=== PATIENT | male | born 1945 | race Caucasian/White ===

== ENCOUNTER → 2018-09-07 | Day surgery (SDC) | payer MEDICARE ==
[2018-09-04 12:38] LABS: BASOPHILS % 0.4 % (0.0-1.0); EOSINOPHILS # (AUTO) 0.1 (0.0-0.4); EOSINOPHILS % 1.7 % (0.0-6.0); HEMATOCRIT 39.1 % (38.2-49.6); HEMOGLOBIN 13.3 g/dL (14.0-18.0); LYMPHOCYTES # (AUTO) 2.8 (1.0-3.2); LYMPHOCYTES % 38.7 % (18.0-39.1); MEAN CORPUSCULAR HEMOGLOBIN 30.4 pg (28-32); MEAN CORPUSCULAR VOLUME 89.3 fL (81-99); MONOCYTES # (AUTO) 0.6 (0.2-0.8); MONOCYTES % 7.9 % (4.4-11.3); NEUTROPHILS # (AUTO) 3.6 (2.1-6.9); NEUTROPHILS % 51.2 % (38.7-80.0); PLATELET COUNT 297 x10e3/uL (140-360); RED BLOOD COUNT 4.38 x10e6/uL (4.3-5.7); RED CELL DISTRIBUTION WIDTH 13.9 % (11.7-14.4)
[2018-09-04 12:49] LABS: INR 0.8; PROTHROMBIN TIME 11.9 seconds (11.9-14.5)
[2018-09-04 12:56] LABS: ALBUMIN 3.5 g/dL (3.5-5.0); ALBUMIN/GLOBULIN RATIO 1.1 (0.8-2.0); ANION GAP 14.2 mmol/L (8-16); CHOL/HDL RATIO 5.1 (3.9-4.7); CREATININE, SERUM 1.42 mg/dL (0.72-1.25); POTASSIUM 3.2 mmol/L (3.5-5.1)
[2018-09-07] VITALS (8 sets, daily range): BP systolic 151–179; BP diastolic 67–88
[~2018-09-07] VITALS: Ht 177.8 cm; Wt 134.3 kg
[~2018-09-07] MED LIST: ALEVE220 MG PO; ALPRAZOLAM 0.5 MG TAB ONE; AMLODIPINE BESYL5 MG PO; ASPIR 8181 MG PO; ATORVASTATIN CA20 MG PO; CHLORTHALIDONE50 MG PO; CLOPIDOGREL75 MG PO; DESONIDE59 ML TOP; DIPHENHYDRAMINE HCL 25 MG CAP ONE; DYMISTA NASAL S23 GM; ELOCON15 GM TD; FENTANYL CITRATE/PF 100MCG/2 ML INJ ONE; FISH OIL 1,2001 EACH PO; FLUOROURACIL 5% TP; HEPARIN SOD/SOD CHLORIDE 2,000 ML ONE; HYDRALAZINE HCL 20 MG/ML VIAL ONE; IBUPROFEN200 MG PO; IOPAMIDOL 370 MG/ML 200 ML INFUS..BTL INJ ONE; ISOSORBIDE MONO30 MG PO; LEVEMIR100 UNIT/1 SC; LIDOCAINE HCL 2% LOCAL 20 ML VIAL ONE; LISINOPRIL10 MG PO; MIDAZOLAM HCL 2 MG/2 ML VIAL ONE; MUPIROCIN22 GM TOP; NOVOLOG100 UNIT/1 SC; PENTOXIFYLLINE400 MG PO; POTASSIUM CHLO10 ME1 PO; REFRESH CLASSI1 EACH OP; SODIUM CHLORIDE 0.9% 1000ML 1,000 ML ONE; SULFACETAMIDE3.5 GM TP; TERBINAFINE HC250 MG PO; [UNRECOGNIZED DRUG - OTHER]; [UNRECOGNIZED DRUG - OTHER] PO
--- NOTE | 2018-09-07 17:18 | Operative Report ---
DATE OF PROCEDURE: September 07, 2018 PROCEDURES PERFORMED 1. Conscious sedation 40 minutes. 2. Selective coronary angiography x2. 3. Selective venous graft angiography x1. 4. Selective arterial graft x1. 5. Insertion of an implantable loop recorder. PREPROCEDURE DIAGNOSIS: Abnormal stress test. POSTPROCEDURE DIAGNOSIS: Severe hopi coronary artery disease with patent bypass x2. ESTIMATED BLOOD LOSS: Less than 20 mL. SPECIMENS REMOVED: None. PROCEDURE DETAILS: After informed consent was obtained, the patient was brought to the cardiac catheterization laboratory in a fasting and nonsedated state. Bilateral groins were prepped and draped in the usual sterile fashion. His anterior chest wall was prepped and draped in the usual sterile fashion as well. The patient received conscious sedation with fentanyl and midazolam. The anterior chest wall was infiltrated with 2% lidocaine for local anesthesia. Using proper technique, an implantable loop recorder was inserted under the usual protocol. The tract was sealed with Dermabond. Next, 2% lidocaine was infiltrated over the right anterior groin for local anesthesia. Using a micropuncture needle, the right common femoral artery was accessed using modified Seldinger technique, and a 5-Bhutanese sheath was placed. Next, diagnostic coronary angiography was performed using a JL-4 and 3DRC catheters. Eventually an AL-1 catheter was used to selectively engage the right coronary artery. Selective graft angiography x2 was performed using a 3DRC catheter and a JR-4 catheter. The arteriotomy site was closed with a Mynx device with excellent hemostasis. The patient tolerated the procedure well with no immediate complications and was transported back to his room in stable condition. PROCEDURAL FINDINGS 1. Left main coronary artery has an ostial 20% stenosis. 2. The left anterior descending coronary artery has a 40% to 50% proximal stenosis and is 100% occluded in its midportion after the takeoff of the 1st diagonal branch. The distal vessel fills via a patent left internal mammary graft. The apical portion of the LAD is very small in caliber and diffusely diseased. 3. Left circumflex coronary artery provides 1 small obtuse marginal vessel right before it is 100% occluded. The distal OM is filled via a patent saphenous vein graft. 4. The right coronary artery is a dominant vessel and provides the posterior descending coronary artery. There is a mid 30% RCA stenosis. 5. The saphenous vein graft anastomosed to the 2nd obtuse marginal vessel has a 40% to 50% mid stenosis. 6. The left internal mammary artery graft is patent. IMPRESSION AND RECOMMENDATIONS: This is a 73-year-old man with severe hopi coronary artery disease, who is found to have patent grafts. Medical management is recommended, and home monitoring for his implantable loop recorder to assess for any arrhythmias will be performed. Job#: [id number] EV
== END | disposition home or self-care (01) ==
LOC: CATH LAB 10:32
PROVIDERS: ATTEND Internal Medicine Interventional Cardiology
DX: I25.810 Atherosclerosis of coronary artery bypass graft(s) without angina pectoris (principal); I48.91 Unspecified atrial fibrillation; R94.39 Abnormal result of other cardiovascular function study; I25.2 Old myocardial infarction; R03.0 Elevated blood-pressure reading, without diagnosis of hypertension; Z95.1 Presence of aortocoronary bypass graft; G47.30 Sleep apnea, unspecified; E78.00 Pure hypercholesterolemia, unspecified; E11.9 Type 2 diabetes mellitus without complications; Z01.812 Encounter for preprocedural laboratory examination; Z79.82 Long term (current) use of aspirin; Z79.02 Long term (current) use of antithrombotics/antiplatelets; Z79.4 Long term (current) use of insulin; Z68.41 Body mass index [BMI] 40.0-44.9, adult; Z86.73 Personal history of transient ischemic attack (TIA), and cerebral infarction without residual deficits
CPT/HCPCS: 33282; 36415; 80053; 80061; 85025; 85610; 93455; C1764; C1769; J0360; J2001; J2250; J7030; Q9967

== ENCOUNTER 2020-07-11 06:37 | Observation (INO) | payer MEDICARE, OTHER ==
[2020-07-06 12:35] LABS: BASOPHILS % 0.3 % (0.0-1.0); EOSINOPHILS # (AUTO) 0.1 (0.0-0.4); EOSINOPHILS % 1.9 % (0.0-6.0); HEMATOCRIT 39.6 % (38.2-49.6); HEMOGLOBIN 13.2 g/dL (14.0-18.0); LYMPHOCYTES # (AUTO) 2.2 (1.0-3.2); LYMPHOCYTES % 35.2 % (18.0-39.1); MEAN CORPUSCULAR HEMOGLOBIN 30.4 pg (28-32); MEAN CORPUSCULAR HGB CONC 33.3 g/dL (31-35); MEAN CORPUSCULAR VOLUME 91.2 fL (81-99); MONOCYTES # (AUTO) 0.5 (0.2-0.8); MONOCYTES % 7.1 % (4.4-11.3); NEUTROPHILS # (AUTO) 3.5 (2.1-6.9); NEUTROPHILS % 55.2 % (38.7-80.0); PLATELET COUNT 282 x10e3/uL (140-360); RED BLOOD COUNT 4.34 x10e6/uL (4.3-5.7); RED CELL DISTRIBUTION WIDTH 13.7 % (11.7-14.4)
[2020-07-06 12:58] LABS: ALBUMIN/GLOBULIN RATIO 1.4 (0.8-2.0); ANION GAP 16.2 mmol/L (8-16); CALCIUM 8.7 mg/dL (8.4-10.2); CREATININE, SERUM 1.3 mg/dL (0.72-1.25); POTASSIUM 3.2 mmol/L (3.5-5.1)
[2020-07-11] VITALS (21 sets, daily range): BP systolic 119–205; BP diastolic 60–101
[~2020-07-11] VITALS: Ht 182.9 cm; Wt 140.6 kg
[~2020-07-11 06:37] MED LIST changes: +ACETAMINOPHEN650 M1 PO; -ALPRAZOLAM 0.5 MG TAB ONE; +AZELASTINE205.5 MCG/ TOP; -DIPHENHYDRAMINE HCL 25 MG CAP ONE; -ELOCON15 GM TD; +ELOCON15 GM TOP; -FENTANYL CITRATE/PF 100MCG/2 ML INJ ONE; +FOLIC; +FOLIC ACID PO; -HEPARIN SOD/SOD CHLORIDE 2,000 ML ONE; -HYDRALAZINE HCL 20 MG/ML VIAL ONE; -IOPAMIDOL 370 MG/ML 200 ML INFUS..BTL INJ ONE; -LIDOCAINE HCL 2% LOCAL 20 ML VIAL ONE; -MIDAZOLAM HCL 2 MG/2 ML VIAL ONE; +PRESERVISION T1 EACH PO; -SODIUM CHLORIDE 0.9% 1000ML 1,000 ML ONE; +TYLENOL ARTHRITIS PO; +VALACYCLOVIR500 MG PO; +[UNRECOGNIZED DRUG - OTHER] OP
[2020-07-11] MEDS ORDERED: DIPHENHYDRAMINE HCL 25 MG CAP ONE (07:29)
[2020-07-11] MEDS ORDERED: ALPRAZOLAM 0.5 MG TAB ONE (07:29)
[2020-07-11] MEDS ORDERED: LIDOCAINE HCL 2% LOCAL 20 ML VIAL ONE (07:51)
[2020-07-11] MEDS ORDERED: MIDAZOLAM HCL 2 MG/2 ML VIAL ONE ×2 (07:51→08:29)
[2020-07-11] MEDS ORDERED: FENTANYL CITRATE/PF 100MCG/2 ML INJ ONE (07:51)
[2020-07-11] MEDS ORDERED: IOPAMIDOL 370 MG/ML 200 ML INFUS..BTL INJ ONE (07:52)
[2020-07-11] MEDS ORDERED: HEPARIN SOD/SOD CHLORIDE 2,000 ML ONE (07:52)
[2020-07-11] MEDS ORDERED: SODIUM CHLORIDE 0.9% 1000ML 1,000 ML ONE (07:52)
[2020-07-11] MEDS ORDERED: SODIUM CHLORIDE 0.9% 50ML 50 ML ONE ×2 (08:36→08:41)
[2020-07-11] MEDS ORDERED: BIVALRIUDIN 250 MG/VIAL VIAL IV ONE (08:36)
[2020-07-11] MEDS ORDERED: ADENOSINE 6MG/2ML 1 ML ONE (08:41)
[2020-07-11] MEDS ORDERED: EPTIFIBATIDE 20 ML ONE (08:46)
[2020-07-11] MEDS ORDERED: ACETAMINOPHEN 325 MG TAB PO PRN (09:30)
[2020-07-11] MEDS ORDERED: MORPHINE SULFATE INJ 4 MG/ML INJ 1ML IV PRN (09:30)
[2020-07-11] MEDS ORDERED: HYDRALAZINE HCL 20 MG/ML VIAL IV PRN (09:30)
[2020-07-11] MEDS ORDERED: ONDANSETRON HCL INJ 2MG/ML 2ML 2 MG/ML VIAL IV PRN (09:30)
[2020-07-11] MEDS ORDERED: ZOLPIDEM TARTRATE 5 MG TAB PO PRN (09:30)
[2020-07-11] MEDS ORDERED: DEXTROSE 50% SYRINGE 50 ML IV PRN (09:30)
[2020-07-11] MEDS ORDERED: HYDROCODONE/APAP 5MG-325MG TAB PO PRN (09:30)
[2020-07-11] MEDS ORDERED: PRASUGREL 10 MG TAB ONE (09:36)
[2020-07-11] MEDS ORDERED: ASPIRIN 325 MG TAB ONE (09:37)
--- NOTE | 2020-07-11 10:49 | Operative Report ---
DATE OF PROCEDURE: 07/11/2020 SURGEON: Ramsey Ferrer MD INDICATIONS: Coronary artery disease, abnormal stress test with angina. PROCEDURES PERFORMED: 1. Left heart catheterization, selective coronary angiography. 2. Selective cannulation of one arterial and one venous bypass conduit. 3. Placement of temporary transvenous pacemaker. 4. Percutaneous coronary intervention to the saphenous vein bypass graft of the circumflex artery. 5. Conscious sedation, 65 minutes. COMPLICATIONS: None. BLOOD LOSS: Minimal. RECOMMENDATIONS: Dual antiplatelet therapy for life. Aggressive medical therapy. DESCRIPTION OF PROCEDURE: Access obtained in the right femoral artery. A 6-Russian sheath was placed, access obtained in the right femoral vein. A 7-Russian sheath was placed, transvenous pacemaker was advanced to the right ventricular apex and pacing initiated with excellent capture and threshold. Coronary angiography demonstrated 50% distal left main stenosis, mid left anterior descending artery 90% stenosis, distal circumflex 90% stenosis, 2 mm vessel, obtuse marginal branch was occluded. Right coronary artery was dominant vessel, 50% mid calcification and stenosis. Left internal mammary artery bypass to left anterior descending artery was widely patent, bad [place]. Apical left anterior descending artery was subtotally occluded 1.5 mm vessel. Saphenous vein bypass graft to obtuse marginal branch had a distal anastomotic stent, which had 50% in-stent restenosis. Proximal bypass graft 80%, mid bypass graft 50%, and distal to this 90% stenosis. LV end-diastolic pressure was normal. The decision was made to intervene on the saphenous vein bypass graft, this was cannulated using a JR4 6-Russian guiding catheter. The patient received intravenous Angiomax, oral prasugrel, and aspirin for anticoagulation. A short Runthrough wire was advanced for support. Integrilin bolus along with a total of 1.5 mg of adenosine as well as 600 mcg of nitroglycerin administered intracoronary. Predilatation, a 2.5 mm balloon following which a single 3.5 x 16 mm Synergy stent deployed distally in the vein graft, 2.5 x 16 mm Synergy stent deployed proximally at 14 and 18 atmospheres respectively, less than 10% residual stenosis, MALORIE-3 flow. No complications. Wire and guide sheath removed. Sheath secured in place for removal under manual pressure. The patient observed overnight in the hospital. MD JOSEPH Silver/SHERMAN /[id number]
--- OUTSIDE RECORDS SUMMARY | 2020-07-11 11:02 | XMS REPORT | Continuity of Care Document ---
Author Author [facility] Organization [facility] Address [address] [place] [address] Phone Unavailable Care Team Providers Care Agricultural Specialist Name Role Phone Pcp, No PCP Unavailable TR[place]ON AMANDA Attphys Unavailable Payers Payer Name Policy Type Policy Number Effective Date Expiration Date S ource Problems Condition Name Condition Details Condition Category Status Onset Date Resolution Date Last Treatment Date Treating Clinician Comments Source Hyperglycemia due to type 2 diabetes mellitus Hypergly cemia Due to Type 2 Diabetes Mellitus Problem Active 2019-12-21 00:00:[address] [facility] Syncope Syncope Disease Active 2018-09-27 00:00:00 Dillan Winters Body mass index 40+ - severely obese Body Mass Index 40+ - S everely Obese Problem Active 2017-05-23 00:00:[address] [facility] Diabetes type 2, uncontrolled Diabetes type 2, uncontrolled Disease Active 2017-05-23 00:00:00 Dillan Winters Benign essential hypertension Benign essential hypertension Disease Active 2017-05-23 00:00:00 Dillan Winters Coronary arteriosclerosis in [place] artery Coronary ar teriosclerosis in [place] artery Disease Active 2017-05-23 00:00:00 Alejo Winters Gastroesophageal reflux disease without esophagitis [place] stroesophageal reflux disease without esophagitis Disease Active 2017-05-23 00:00:00 Dillan Winters Hypercholesterolemia Hypercholesterolemia Disease Active 00:00:00 Dillan Winters Allergies, Adverse Reactions, Alerts Allergy Name Allergy Type Status Severity Reaction(s) Onset Date Inacti ve Date Treating Clinician Comments Source Furosemide Propensity to adverse reactions Active 1 00:00:00 [facility] furosemide DA Active SV 2019-03-06 00:00:00 [facility] Furosemide Propensity to adverse reactions to drug Active 2018-09-27 00:00:00 Blisters Dillan pelayo No Known Allergies DA Active U 2014-03-08 00:00:00 [facility] Lasix Allergy to substance Active [facility] Social History Social Habit Start Date Stop Date Quantity Comments Source History SDOH Alcohol Std Drinks Grimaldo Uatsdin History SDOH Alcohol Binge Grimaldo Uatsdin Sex Assigned At Kylie stevenson Uatsdin Alcohol intake 2018-09-27 00:00:00 2018-09-27 00:00:00 Current drinker of alcohol (finding) Grimaldo Uatsdin History SDOH Alcohol Frequency 2018-09-27 00:00:00 2018-09-27 00:00:0 0 1 Grimaldo Uatsdin Alcohol Comment 2018-09-27 00:00:00 2018-09-27 00:00:00 occassional Dillan Winters Smoking Status Start Date Stop Date Source Never smoker Dillan pelayo Medications Ordered Medication Name Filled Medication Name Start Date Stop Da te Current Medication? Ordering Clinician Indication Dosage Frequency Signature (SIG) Comments Components Source azelastine-fluticasone (DYMISTA) 137-50 mcg/spray spray,non- aerosol 2018-09-29 16:26:25 Yes 1{spray} Q.5D 1 spray by Each Nare route 2 (two) times a day as needed. [place] Uatsdin amLODIPine (NORVASC) 5 mg tablet 2018-09-29 16:26:25 Yes 5mg Q.5D Take 5 mg by mouth 2 (two) times a day. [facility] atorvastatin (LIPITOR) 40 MG tablet 2018-09-29 16:26:25 Yes 40mg QD Take 40 mg by mouth every morning. [facility] chlorthalidone (HYGROTEN) 50 MG tablet 2018-09-29 16:26:25 Yes 50mg QD Take 50 mg by mouth every [facility] clopidogrel (PLAVIX) 75 mg tablet 2018-09-29 16:26:25 Yes 75mg QD Take 75 mg by mouth every morning. [facility]ist isosorbide mononitrate (IMDUR) 30 MG 24 hr tablet 2018-09-29 16:26:25 Yes 30mg QD Take 30 mg by mouth every morning. Dillan Winters lisinopril (PRINIVIL,ZESTRIL) 40 mg tablet 2018-09-29 16:26:25 Yes 40mg QD Take 40 mg by mouth every morning. Dillan Winters potassium chloride (K-DUR,KLOR-CON) 10 MEQ CR tablet 2 16:26:25 Yes 10meq Q.5D Take 10 mEq by mouth 2 (two) times a day . Dillan Winters insulin detemir U-100 (LEVEMIR) 100 unit/mL injection 2018-09-29 16:26:25 Yes 38U QD Inject 38 Units under the skin every mor james. Dillan Winters insulin detemir U-100 (LEVEMIR) 100 unit/mL injection 2018-09-29 16:26:25 Yes 44U QD Inject 44 Units under the skin nightly. Dillan Winters insulin ASPART (NovoLOG) 100 unit/mL injection 2018-09-29 16:26: 25 Yes 26U Q.[id number] Inject 26 Units under the sk in 3 (three) times a day before meals. Dillan Winters aspirin (ECOTRIN) 81 MG enteric coated tablet 2018-09-29 16:26:2 5 Yes 81mg QD Take 81 mg by mouth every morning. Dillan Winters omega-3 fatty acids-fish oil (FISH OIL) 360-1,200 mg capsule 2018-09-29 16:26:25 Yes 1200mg Q.5D Take 1,200 mg by mouth 2 (two ) times a day. Dillan Winters folic acid 0.8 mg capsule 2018-09-29 16:26:25 Yes 1600mg QD Take 1,600 mg by mouth every morning. Dillan stevens vit C/E/Zn/coppr/lutein/zeaxan (PRESERVISION AREDS-2 ORAL) 2018-09-29 16:26:25 Yes 1{tbl} Q.5D Take 1 tablet by mouth 2 (two) times a day. Dillan Winters carboxymethylcellulose 1 % ophthalmic solution 2018-09-29 16:26: 25 Yes 2[drp] Q.[id number] Administer 2 drops to both e yes 3 (three) times a day. Dillan Winters pentoxifylline (TRENTal) 400 mg CR tablet 2018-09-29 16:26:25 Yes 400mg Q.[id number] Take 400 mg by mouth 3 (three) times a day with meals. Dillan Winters terbinafine HCl (LamiSIL) 250 mg tablet 2018-09-29 16:26:25 Yes 250mg QD Take 250 mg by mouth every morning. Dillan Winters mometasone (ELOCON) 0.1 % cream 2018-09-29 16:26:25 Yes 1{application} QD Apply 1 application topically daily. Dillan Winters mupirocin (BACTROBAN) 2 % ointment 2018-09-29 16:26:25 Y es 1{application} Q.[id number] Apply 1 application topicall y 3 (three) times a day. Dillan Winters naproxen sodium (ALEVE) 220 MG tablet 2018-09-29 16:26:25 Yes 220mg Q.5D Take 220 mg by mouth 2 (two) times a day as needed for mild pain . Dillan Winters sulfacetamide sodium 10 % cream 2018-09-29 16:26:25 Yes 1{application} Q.5D Apply 1 application topically 2 (two) times a day. Dillan Winters acetaminophen 650 mg 2 every 8 hours as needed acetami nophen 650 mg 2 every 8 hours as needed No acetaminophen 6 50 mg 2 every 8 hours as needed [facility] amlodipine 5 mg tablet Take 1 tablet twice a day by or al route. amlodipine 5 mg tablet Take 1 tablet twice a day by oral route. No amlodipine 5 mg tablet Take 1 tablet twice a day by oral route. [facility] atorvastatin 40 mg tablet TAKE ONE TABLET BY MOUTH MISAEL LY atorvastatin 40 mg tablet TAKE ONE TABLET BY MOUTH DAILY No atorvastatin 40 mg tablet TAKE ONE TABLET BY MOUTH DAILY [facility] BD Ultra-Fine Mini Pen Needle 31 gauge x 3/16" TEST BL OOD SUGAR DAILY BD Ultra- Fine Mini Pen Needle 31 gauge x 3/16" TEST BLOOD SUGAR DAILY No BD Ultra-Fine Mini Pen Needle 31 gauge x 3/16" TEST BLOOD SUGAR DAILY [facility] chlorthalidone 50 mg tablet TAKE ONE TABLET BY MOUTH D AILY chlorthalidone 50 mg tablet TAKE ONE TABLET BY MOUTH DAILY No chlorthalidone 50 mg tablet TAKE ONE TABLET BY MOUTH DAILY [facility] clopidogrel 75 mg tablet TAKE ONE TABLET BY MOUTH GLENDY Y clopidogrel 75 mg tablet TAKE ONE TABLET BY MOUTH DAILY No clopidogrel 75 mg tablet TAKE ONE TABLET BY MOUTH DAILY [facility] desonide 0.05 % topical cream APPLY SPAR INGLY AND RUB GENTLY INTO THE AFFECTED AREA(S) BY TOPICAL ROUTE 2 TIMES PER DAY desonide 0.05 % topical cream APPLY SPARINGLY AND RUB GENTLY INTO THE AFFECTED AREA(S) BY TOPICAL ROUTE 2 TIMES PER DAY No desonide 0.05 % topical cream APPLY SPARINGLY AND RUB GENTLY INTO THE AFFECTED AREA(S) BY TOPICAL ROUTE 2 TIMES PER DAY [facility] Fish Oil 1200 mg twice a day Fish Oil 1200 mg twice a day N o Fish Oil 1200 mg twice a day [facility] folic acid 1600 mg TAKE ONE TABLET BY MOUTH DAILY foli c acid 1600 mg TAKE ONE TABLET BY MOUTH DAILY No fo lic acid 1600 mg TAKE ONE TABLET BY MOUTH DAILY [facility] isosorbide mononitrate ER 30 mg tablet,extended releas e 24 hr 1 daily isosorbide mononitrate ER 30 mg tablet,extended release 24 hr 1 daily No isosorbide mononitrate ER 30 mg tablet,extended release 24 hr [address] [facility] Levemir FlexTouch U-100 Insulin 100 unit/mL (3 mL) sub cutaneous pen Levemir FlexTouch U-100 Insulin 100 unit/mL (3 mL) subcutaneous pen No Levemir FlexTouch U-100 Insulin 100 unit/mL (3 mL) subcutaneous pen [facility] lisinopril 40 mg tablet TAKE ONE TABLET BY MOUTH DAILY lisinopril 40 mg tablet TAKE ONE TABLET BY MOUTH DAILY No lisinopril 40 mg tablet TAKE ONE TABLET BY MOUTH DAILY [facility] Longs Adult Low Strength ASA 81 mg table t,delayed release Take 1 tablet every day by oral route. Longs Adult Low Strength ASA 81 mg table t,delayed release Take 1 tablet every day by oral route. No 1 Q1D Longs Adult Low Strength ASA 81 mg tablet,delayed release Take 1 tablet every day by oral route. [facility] metoprolol tartrate 25 mg tablet 0.5 tablet twice a da y metoprolol tartrate 25 mg tablet 0.5 tablet twice a day No metoprolol tartrate 25 mg tablet 0.5 tablet twice a day [facility] Microlet Lancet 3 TIMES A DAY Microlet Lancet 3 TIMES A DAY No Microlet Lancet 3 TIMES A DAY [facility] mometasone furoate (bulk) 0.10 % apply thin layer mome tasone furoate (bulk) 0.10 % apply thin layer No mome tasone furoate (bulk) 0.10 % apply thin layer [facility] ice mupirocin 2 % topical ointment APPLY A S MALL AMOUNT TO THE AFFECTED AREA BY TOPICAL ROUTE 3 TIMES PER DAY mupirocin 2 % topical ointment APPLY A S MALL AMOUNT TO THE AFFECTED AREA BY TOPICAL ROUTE 3 TIMES PER DAY No mupirocin 2 % topical ointment APPLY A SMALL AMOUNT TO THE AFFECTED AREA BY TOPICAL ROUTE 3 TIMES PER DAY [facility] Novolog Flexpen U-100 Insulin aspart 100 unit/mL (3 mL) subcutaneous 26 units per meal size Novolog Flexpen U-100 Insulin aspart 100 unit/mL (3 mL) subcutaneous 26 units per meal size No Novolog Flexpen U-100 Insulin aspart 100 unit/mL (3 mL) subcutaneous 26 units per meal size [facility] OneTouch Verio test strips TEST BLOOD SUGAR DAILY OneT ouch Verio test strips TEST BLOOD SUGAR DAILY No O neTouch Verio test strips TEST BLOOD SUGAR DAILY [facility] ice pen needle, diabetic 31 gauge x 1/4" pen needle, diabetic 31 gauge x 1/4" No pen needle, diabetic 31 gauge x 1/4" [facility] pentoxifylline ER 400 mg tablet,extended release Take 1 tablet 3 times a day by oral route. pentoxifylline ER 400 mg tablet,extended release Take 1 tablet 3 times a day by oral route. No pentoxifylline ER 400 mg tablet,extended release Take 1 tablet 3 times a day by oral route. [facility] potassium chloride ER 10 mEq tablet,exte nded release TAKE ONE TABLET BY TWICE A DAY potassium chloride ER 10 mEq tablet,exte nded release TAKE ONE TABLET BY TWICE A DAY No potassium ch loride ER 10 mEq tablet,extended release TAKE ONE TABLET BY TWICE A DAY [facility] PreserVision AREDS 1 twice a day PreserVision AREDS 1 twice a day No PreserVision AREDS 1 twice a day [facility] sulfacetamide sodium (acne) 10 % lotion (suspension) t wice a day sulfacetamide sodium (acne) 10 % lotion (suspension) twice a day No sulfacetamide sodium (acne) 10 % lotion (suspension) twice a day [facility] Tears Refreshed eye drops 2 drops three times a day Te ars Refreshed eye drops 2 drops three times a day No Tears Refreshed eye drops 2 drops three times a day [facility] terbinafine HCl 250 mg tablet QD terbinafine HCl 250 mg tablet QD No terbinafine HCl 250 mg tablet QD [facility] Immunizations Ordered Immunization Name Filled Immunization Name Date Status Comments Source pneumococcal polysaccharide PPV23 pneumococcal polysaccharid e PPV23 2019-08-10 00:00:00 [facility]pleted [facility] influenza, injectable, quadrivalent influenza, injectable, q uadrivalent 2019-08-10 00:00:00 Completed [facility] influenza, high dose seasonal influenza, high dose seasonal 2017 11:36:[address] [facility] influenza, high dose seasonal influenza, high dose seasonal 2015 15:07:[address] [facility] pneumococcal, unspecified formulation pneumococcal, unspecif ied formulation 2015-11-03 00:00:00 [facility]pleted [facility] zoster live zoster live 2011-11-03 00:00:00 Completed [facility] Vital Signs Vital Name Observation Time Observation Value Comments Source Height 2020-06-02 00:00:00 67 [in_i] [facility] BP Diastolic 2019-11-22 00:00:00 79 mm[Hg] [facility] Height 2019-11-22 00:00:00 67 [in_i] [facility] BMI (Body Mass Index) 2019-11-22 00:00:00 48.4 kg/m2 [facility] BP Systolic 2019-11-22 00:00:00 171 mm[Hg] [facility] Body Weight 2019-11-22 00:00:00 308.8 [lb_av] [facility] BP Diastolic 2019-10-18 00:00:00 87 mm[Hg] [facility] Height 2019-10-18 00:00:00 67 [in_i] [facility] BMI (Body Mass Index) 2019-10-18 00:00:00 48.6 kg/m2 [facility] BP Systolic 2019-10-18 00:00:00 161 mm[Hg] [facility] Body Weight 2019-10-18 00:00:00 310 [lb_av] [facility] Procedures This patient has no known procedures. Plan of Care Planned Activity Planned Date Details Comments Source Future Scheduled Test 2020-08-03 00:00:00 INFLUENZA VACCINE [code = INFLUENZA VACCINE] [facility] Future Scheduled Test 2012-01-02 00:00:00 SHINGLES VACCINES (#2) [code = SHINGLES VACCINES (#2)] [facility] Future Scheduled Test 2010 00:00:00 65+ PNEUMOCOCCAL V ACCINE (2 of 2 - PPSV23) [code = 65+ PNEUMOCOCCAL VACCINE (2 of 2 - PPSV23)] [facility] Future Scheduled Test 1995 00:00:00 COLONOSCOPY SCREEN ING [code = COLONOSCOPY SCREENING] [facility] Scheduled Test 1955 00:00:00 DIABETIC FOOT EXAM [code = DIABETIC FOOT EXAM] [facility] Future Scheduled Test 1955 00:00:00 URINE MICROALBUMIN [code = URINE MICROALBUMIN] [facility] Future Scheduled Test 1945 00:00:00 DIABETIC RETINAL E YE EXAM [code = DIABETIC RETINAL EYE EXAM] [facility] Encounters Start Date/Time End Date/Time Encounter Type Admission Type Attendi [facility] Care Department Encounter ID Source 2020-06-02 00:00:00 2020-06-02 00:00:00 Luis M Nava MD: [address], [place] [address], Ph. V [facility] - VM_HOU_[facility] [place] [id number] [facility] 2020-04-26 00:00:00 2020-04-26 00:00:00 Dodie Ferro P: [id number], [address], [place] [address], Ph. VFP [facility] - _U_[facility] [id number] [facility] 2019-11-22 00:00:00 2019-11-22 00:00:00 Luis M Nava MD: [address], [place] [address], Ph. V [facility] - VM_HOU[facility] [place] [id number] [facility] 2019-10-18 00:00:00 2019-10-18 00:00:00 Luis M Nava MD: [address], [place] [address], Ph. V FP [place] - [facility] - _KYLIE_[place] [id number] [facility] Results Test Description Test Time Test Comments Results Result Comments Source TROPONIN I 2019-07-04 13:38:00 Test Item TROPONIN I (BEAKER) (test code = 397) 0.03 ng/mL 0.00-0.15 Troponin I (TnI) levels must be interpreted in the context of the presenting sym ptoms and the clinical findings. Elevated TnI levels indicate myocardial damage, but are not specific for ischemic heart disease. Elevated TnI levels are seen in patients with other cardiac conditions (including myocarditis and congestive h eart failure), and slight TnI elevations occur in patients with other conditions , including sepsis, renal failure, acidosis, acute neurological disease, and per sistent tachyarrhythmia.B-TYPE NATRIURETIC FACTOR (BNP)2019-07-04 13:38:00* Test Item Value Reference Range Interpretation Comments B-TYPE NATRIURETIC PEPTIDE (BEAKER) (test code = 700) 133 pg/mL 0-100 H BASIC METABOLIC [id number] 13:30:00* Test Item Value Reference Range Interpretation Comments SODIUM (BEAKER) (test code = 381) 140 meq/L 135-148 POTASSIUM (BEAKER) (test code = 379) 3.0 meq/L 3.6-5.5 L CHLORIDE (BEAKER) (test code = 382) 99 meq/L 98-106 CO2 (BEAKER) (test code = 355) 29 meq/L 20-29 BLOOD UREA NITROGEN (BEAKER) (test code = 354) 21 mg/dL 10-26 CREATININE (BEAKER) (test code = 358) 1.39 mg/dL 0.50-1.20 H GLUCOSE RANDOM (BEAKER) (test code = 652) 250 mg/dL 70-110 H CALCIUM (BEAKER) (test code = 697) 9.7 mg/dL 8.5-10.5 EGFR (BEAKER) (test code = 1092) 50 mL/min/1.73 sq m INSUFFICIENT CLINICAL DATA TO CALCULATE ESTIMATED GFR. [id number] 13:30:00* Test Item Value Reference Range Interpretation Comments MAGNESIUM (BEAKER) (test code = 627) 2.0 mg/dL 1.5-3.0 CBC W/PLT COUNT & AUTO [id number] 13:11:00* Test Item Value Reference Range Interpretation Comments WHITE BLOOD CELL COUNT (BEAKER) (test code = 775) 7.4 K/ L 4.0- 10.0 RED BLOOD CELL COUNT (BEAKER) (test code = 761) 4.52 M/ L 4.20-5 .80 HEMOGLOBIN (BEAKER) (test code = 410) 13.3 GM/DL 13.0-16.8 HEMATOCRIT (BEAKER) (test code = 411) 40.3 % 36.0-50.0 MEAN CORPUSCULAR VOLUME (BEAKER) (test code = 753) 89.2 fL 82. 0-99.0 MEAN CORPUSCULAR HEMOGLOBIN (BEAKER) (test code = 751) 29.4 pg 27.0-33.0 MEAN CORPUSCULAR HEMOGLOBIN CONC (BEAKER) (test code = 752) 33.0 GM/DL 32.0-36.0 RED CELL DISTRIBUTION WIDTH (BEAKER) (test code = 412) 13.4 % 12.0-15.0 PLATELET COUNT (BEAKER) (test code = 756) 302 K/CU MM 150-430 MEAN PLATELET VOLUME (BEAKER) (test code = 754) 9.1 fL 6.0-11 .5 NUCLEATED RED BLOOD CELLS (BEAKER) (test code = 413) 0 /100 WBC 0 -0 NEUTROPHILS RELATIVE PERCENT (BEAKER) (test code = 429) 68 % LYMPHOCYTES RELATIVE PERCENT (BEAKER) (test code = 430) 23 % MONOCYTES RELATIVE PERCENT (BEAKER) (test code = 431) 7 % EOSINOPHILS RELATIVE PERCENT (BEAKER) (test code = 432) 1 % BASOPHILS RELATIVE PERCENT (BEAKER) (test code = 437) 0 % NEUTROPHILS ABSOLUTE COUNT (BEAKER) (test code = 670) 5.06 K/ L 1.80-8.00 LYMPHOCYTES ABSOLUTE COUNT (BEAKER) (test code = 414) 1.71 K/ L 1.48-4.50 MONOCYTES ABSOLUTE COUNT (BEAKER) (test code = 415) 0.51 K/ L 0. 00-1.30 EOSINOPHILS ABSOLUTE COUNT (BEAKER) (test code = 416) 0.09 K/ L 0.00-0.50 BASOPHILS ABSOLUTE COUNT (BEAKER) (test code = 417) 0.03 K/ L 0. 00-0.20 IMMATURE GRANULOCYTES-RELATIVE PERCENT (BEAKER) (test code = 2801) 0 % 0-0 RAD, CHEST, 1 VIEW, NON [id number] 13:10:00Reason for exam:->DIZZINESSReason for exam:->SHORTNESS OF BREATHFINAL REPORT AP chest dated 07/04/2019 Comment: Heart is normal in size. Pulmonary vasculature is unremarkable. Lungs are clear. No pulmonary infiltrate or pleural effusion. Impression: No active cardiopulmonary disease. Signed: Iona Darling Verified Date/Time: 07/04/2019 13:10:35 Reading Location: [address] Body Reading Room ULATION TIME [id number] 12:07:00* Test Item Value Reference Range Interpretation Comments COAGULATION TIME ACTIVATED (test code = ACT) 242 seconds 62.8-88.0 H COAGULATION TIME [id number] 12:07:00* Test Item Value Reference Range Interpretation Comments COAGULATION TIME ACTIVATED (test code = ACT) 231 seconds 62.8-88.0 H COAGULATION TIME [id number] 12:07:00* Test Item Value Reference Range Interpretation Comments COAGULATION TIME ACTIVATED (test code = ACT) 216 seconds 62.8-88.0 H [id number] 10:24:00* Test Item Value Reference Range Interpretation Comments GLUBED (test code = GLUBED) 284 mg/dL 74-106 H Performed by certified spinning lathe operator automatic at [facility] [id number] 05:36:00* Test Item Value Reference Range Interpretation Comments GLUBED (test code = GLUBED) 221 mg/dL 74-106 H Performed by certified spinning lathe operator automatic at [facility] [id number] 05:35:00* Test Item Value Reference Range Interpretation Comments GLUBED (test code = GLUBED) 328 mg/dL 74-106 H Performed by certified spinning lathe operator automatic at [facility] [id number] 17:01:00* Test Item Value Reference Range Interpretation Comments GLUBED (test code = GLUBED) 266 mg/dL 74-106 H Performed by certified spinning lathe operator automatic at [facility] [id number] 12:38:00* Test Item Value Reference Range Interpretation Comments GLUBED (test code = GLUBED) 270 mg/dL 74-106 H Performed by certified spinning lathe operator automatic at [facility] BASIC METABOLIC [id number] 04:48:00* Test Item Value Reference Range Interpretation Comments SODIUM (test code = NA) 139 mmol/L 136-145 N POTASSIUM (test code = K) 3.2 mmol/L 3.5-5.1 L CHLORIDE (test code = CL) 102.0 mmol/L 98-107 N CARBON DIOXIDE (test code = CO2) 27.0 mmol/L 21-32 N ANION GAP (test code = GAP) 13.2 10-20 N GLUCOSE (test code = GLU) 218 mg/dL 74-106 H BLOOD UREA NITROGEN (test code = BUN) 21 mg/dL 7-18 H GLOMERULAR FILTRATION RATE (test code = GFR) 59 mL/min >=60 Estimated GFR by using Modified MDRD formula.Chronic kidney disease is defined as either kidney damageor GFR <60 mL/min/1.73 m2 for >3 months. CREATININE (test code = CREAT) 1.20 mg/dL 0.7-1.3 N BUN/CREATININE RATIO (test code = BUN/CREA) 17.5 10-20 N CALCIUM (test code = CA) 8.8 mg/dL 8.5-10.1 N [id number] 04:28:00* Test Item Value Reference Range Interpretation Comments GLUBED (test code = GLUBED) 220 mg/dL 74-106 H Performed by certified spinning lathe operator automatic at [facility] CBC W/AUTO [id number] 04:08:00* Test Item Value Reference Range Interpretation Comments WHITE BLOOD CELL (test code = WBC) 8.3 K/mm3 4.5-12.5 N RED BLOOD CELL (test code = RBC) 4.43 mill/mm3 4.0-5.8 N HEMOGLOBIN (test code = HGB) 12.9 gram/dL 13.0-17.5 L HEMATOCRIT (test code = HCT) 40.0 % 42.0-52.0 L MEAN CELL VOLUME (test code = MCV) 90.3 fL 80-98 N MEAN CELL HGB (test code = MCH) 29.1 picogram 27.0-33.0 N MEAN CELL HGB CONCETRATION (test code = MCHC) 32.3 gram/dL 33.0-36. 0 L RED CELL DISTRIBUTION WIDTH (test code = RDW) 13.5 % 11.6-16. 2 N RED CELL DISTRIBUTION WIDTH SD (test code = RDW-SD) 44.4 fL 37 .0-51.0 N PLATELET COUNT (test code = PLT) 275 K/mm3 150-450 N MEAN PLATELET VOLUME (test code = MPV) 9.5 fL 6.7-11.0 N NEUTROPHIL % (test code = NT%) 57.8 % 39.0-69.0 N IMMATURE GRANULOCYTE % (test code = IG%) 0.1 % 0.0-5.0 N LYMPHOCYTE % (test code = LY%) 30.7 % 25.0-55.0 N MONOCYTE % (test code = MO%) 9.5 % 0.0-10.0 N EOSINOPHIL % (test code = EO%) 1.5 % 0.0-5.0 N BASOPHIL % (test code = BA%) 0.4 % 0.0-1.0 N NUCLEATED RBC % (test code = NRBC%) 0.0 % 0-0 N NEUTROPHIL # (test code = NT#) 4.78 K/mm3 1.8-7.7 N IMMATURE GRANULOCYTE # (test code = IG#) 0.01 x10 3/uL 0-0.03 N LYMPHOCYTE # (test code = LY#) 2.53 K/mm3 1.0-5.0 N MONOCYTE # (test code = MO#) 0.78 K/mm3 0-0.8 N EOSINOPHIL # (test code = EO#) 0.12 K/mm3 0.0-0.5 N BASOPHIL # (test code = BA#) 0.03 K/mm3 0.0-0.2 N NUCLEATED RBC # (test code = NRBC#) 0.00 K/mm3 0.0-0.1 N [id number] 21:37:00* Test Item Value Reference Range Interpretation Comments GLUBED (test code = GLUBED) 241 mg/dL 74-106 H Performed by certified spinning lathe operator automatic at [facility] [id number] 19:15:00* Test Item Value Reference Range Interpretation Comments GLUBED (test code = GLUBED) 260 mg/dL 74-106 H Performed by certified spinning lathe operator automatic at [facility] [id number] 13:09:00* Test Item Value Reference Range Interpretation Comments GLUBED (test code = GLUBED) 229 mg/dL 74-106 H Performed by certified spinning lathe operator automatic at [facility] BASIC METABOLIC [id number] 03:50:00* Test Item Value Reference Range Interpretation Comments SODIUM (test code = NA) 140 mmol/L 136-145 N POTASSIUM (test code = K) 3.2 mmol/L 3.5-5.1 L CHLORIDE (test code = CL) 105.0 mmol/L 98-107 N CARBON DIOXIDE (test code = CO2) 30.0 mmol/L 21-32 N ANION GAP (test code = GAP) 8.2 10-20 L GLUCOSE (test code = GLU) 191 mg/dL 74-106 H BLOOD UREA NITROGEN (test code = BUN) 24 mg/dL 7-18 H GLOMERULAR FILTRATION RATE (test code = GFR) 54 mL/min >=60 Estimated GFR by using Modified MDRD formula.Chronic kidney disease is defined as either kidney damageor GFR <60 mL/min/1.73 m2 for >3 months. CREATININE (test code = CREAT) 1.30 mg/dL 0.7-1.3 N BUN/CREATININE RATIO (test code = BUN/CREA) 18.5 10-20 N CALCIUM (test code = CA) 8.6 mg/dL 8.5-10.1 N BASIC METABOLIC [id number] 03:46:00* Test Item Value Reference Range Interpretation Comments SODIUM (test code = NA) 140 mmol/L 136-145 N POTASSIUM (test code = K) 3.2 mmol/L 3.5-5.1 L CHLORIDE (test code = CL) 105.0 mmol/L 98-107 N CARBON DIOXIDE (test code = CO2) mmol/L 21-32 ANION GAP (test code = GAP) 10-20 GLUCOSE (test code = GLU) mg/dL 74-106 BLOOD UREA NITROGEN (test code = BUN) mg/dL 7-18 GLOMERULAR FILTRATION RATE (test code = GFR) mL/min >=60 CREATININE (test code = CREAT) mg/dL 0.7-1.3 BUN/CREATININE RATIO (test code = BUN/CREA) 10-20 CALCIUM (test code = CA) mg/dL 8.5-10.1 CBC W/AUTO [id number] 03:43:00* Test Item Value Reference Range Interpretation Comments WHITE BLOOD CELL (test code = WBC) 7.7 K/mm3 4.5-12.5 N RED BLOOD CELL (test code = RBC) 4.19 mill/mm3 4.0-5.8 N HEMOGLOBIN (test code = HGB) 12.5 gram/dL 13.0-17.5 L HEMATOCRIT (test code = HCT) 37.3 % 42.0-52.0 L MEAN CELL VOLUME (test code = MCV) 89.0 fL 80-98 N MEAN CELL HGB (test code = MCH) 29.8 picogram 27.0-33.0 N MEAN CELL HGB CONCETRATION (test code = MCHC) 33.5 gram/dL 33.0-36. 0 N RED CELL DISTRIBUTION WIDTH (test code = RDW) 13.4 % 11.6-16. 2 N RED CELL DISTRIBUTION WIDTH SD (test code = RDW-SD) 43.8 fL 37 .0-51.0 N PLATELET COUNT (test code = PLT) 269 K/mm3 150-450 N MEAN PLATELET VOLUME (test code = MPV) 9.5 fL 6.7-11.0 N NEUTROPHIL % (test code = NT%) 48.9 % 39.0-69.0 N IMMATURE GRANULOCYTE % (test code = IG%) 0.3 % 0.0-5.0 N LYMPHOCYTE % (test code = LY%) 39.6 % 25.0-55.0 N MONOCYTE % (test code = MO%) 9.1 % 0.0-10.0 N EOSINOPHIL % (test code = EO%) 1.8 % 0.0-5.0 N BASOPHIL % (test code = BA%) 0.3 % 0.0-1.0 N NUCLEATED RBC % (test code = NRBC%) 0.0 % 0-0 N NEUTROPHIL # (test code = NT#) 3.79 K/mm3 1.8-7.7 N IMMATURE GRANULOCYTE # (test code = IG#) 0.02 x10 3/uL 0-0.03 N LYMPHOCYTE # (test code = LY#) 3.06 K/mm3 1.0-5.0 N MONOCYTE # (test code = MO#) 0.70 K/mm3 0-0.8 N EOSINOPHIL # (test code = EO#) 0.14 K/mm3 0.0-0.5 N BASOPHIL # (test code = BA#) 0.02 K/mm3 0.0-0.2 N NUCLEATED RBC # (test code = NRBC#) 0.00 K/mm3 0.0-0.1 N [id number] 00:01:00* Test Item Value Reference Range Interpretation Comments GLUBED (test code = GLUBED) 368 mg/dL 74-106 H Performed by certified spinning lathe operator automatic at [facility] [id number] 16:12:00* Test Item Value Reference Range Interpretation Comments GLUBED (test code = GLUBED) 318 mg/dL 74-106 H Performed by certified spinning lathe operator automatic at [facility] [id number] 13:12:00* Test Item Value Reference Range Interpretation Comments GLUBED (test code = GLUBED) 307 mg/dL 74-106 H Performed by certified spinning lathe operator automatic at [facility] [id number] 08:33:00* Test Item Value Reference Range Interpretation Comments GLUBED (test code = GLUBED) 260 mg/dL 74-106 H Performed by certified spinning lathe operator automatic at [facility] [id number] 03:03:00* Test Item Value Reference Range Interpretation Comments TROPONIN-I (test code = TROPI) 1.370 ng/mL 0-0.045 HH RESULT VERIFIED BY REPEAT ANALYSIS COMMENTS TO PIPELINE CONSTRUCTION INSPECTOR: COLLECT 3 HOURS AFTER PREVIOUS SAMPLEBASIC METABOLIC [id number] 02:43:00* Test Item Value Reference Range Interpretation Comments SODIUM (test code = NA) 137 mmol/L 136-145 N POTASSIUM (test code = K) 3.0 mmol/L 3.5-5.1 L CHLORIDE (test code = CL) 100.0 mmol/L 98-107 N CARBON DIOXIDE (test code = CO2) 28.0 mmol/L 21-32 N ANION GAP (test code = GAP) 12.0 10-20 N GLUCOSE (test code = GLU) 336 mg/dL 74-106 H BLOOD UREA NITROGEN (test code = BUN) 21 mg/dL 7-18 H GLOMERULAR FILTRATION RATE (test code = GFR) 59 mL/min >=60 Estimated GFR by using Modified MDRD formula.Chronic kidney disease is defined as either kidney damageor GFR <60 mL/min/1.73 m2 for >3 months. CREATININE (test code = CREAT) 1.20 mg/dL 0.7-1.3 N BUN/CREATININE RATIO (test code = BUN/CREA) 17.5 10-20 N CALCIUM (test code = CA) 8.4 mg/dL 8.5-10.1 L [id number] 02:43:00* Test Item Value Reference Range Interpretation Comments MAGNESIUM (test code = MAG) 2.1 mg/dL 1.8-2.4 N [id number] 01:38:00* Test Item Value Reference Range Interpretation Comments GLUBED (test code = GLUBED) 354 mg/dL 74-106 H Performed by certified spinning lathe operator automatic at [facility] [id number] 23:04:00* Test Item Value Reference Range Interpretation Comments TROPONIN-I (test code = TROPI) 0.679 ng/mL 0-0.045 HH RESULT VERIFIED BY REPEAT ANALYSIS COMMENTS TO PIPELINE CONSTRUCTION INSPECTOR: COLLECT 3 HOURS AFTER PREVIOUS [id number] 22:45:00* Test Item Value Reference Range Interpretation Comments GLYCOSYLATED HEMOGLOBIN (HA1C) (test code = GLYHGB) 9.4 % HbA1 4. 8-6.0 H ESTIMATED AVERAGE GLUCOSE (test code = EAG) 223 MG/DL LIPID PROFILE (CORONARY RISK)2019-03-06 21:38:00* Test Item Value Reference Range Interpretation Comments TRIGLYCERIDES (test code = TRIG) 400 mg/dL 20-150 H CHOLESTEROL (test code = CHOL) 182 mg/dL 0-200 N CHOLESTEROL/HDL RATIO (test code = CHOLHDL) 5.0 RATIO 0-4.9 H RISK ASSOCIATED WITH CHOL/HDL RATIOS: Risk Male Female1/2 AVERAGE 3.43 3.27AVERAGE 4.97 4.442X AVERAGE 9.55 7.053X AVERAGE 23.39 11.04 REFERENCE VALUE IS RELATED TO RISK LEVELS ASRECOMMENDED BY THE TIAN. HEART, LUNG, AND BLOOD INST. HDL CHOLESTEROL (test code = HDL) 36 mg/dL 40-60 L LIPOPROTEIN LDL (test code = LDL) 100 mg/dL 100-129 N Reference Interval: mg/dL mmol/L Optimal <100 <2.6Near/above optimal 100-129 2.6- 3.3Borderline High 130-159 3.4-4.1High 160-189 4.1-4.9Very High >=190 >=4.9========= This LDL result is a direct measurement.========= BASIC METABOLIC [id number] 17:49:00* Test Item Value Reference Range Interpretation Comments SODIUM (test code = NA) 137 mmol/L 136-145 N POTASSIUM (test code = K) 3.3 mmol/L 3.5-5.1 L CHLORIDE (test code = CL) 97.0 mmol/L 98-107 L CARBON DIOXIDE (test code = CO2) 31.0 mmol/L 21-32 N ANION GAP (test code = GAP) 12.3 10-20 N GLUCOSE (test code = GLU) 433 mg/dL 74-106 H BLOOD UREA NITROGEN (test code = BUN) 25 mg/dL 7-18 H GLOMERULAR FILTRATION RATE (test code = GFR) 46 mL/min >=60 Estimated GFR by using Modified MDRD formula.Chronic kidney disease is defined as either kidney damageor GFR <60 mL/min/1.73 m2 for >3 months. CREATININE (test code = CREAT) 1.50 mg/dL 0.7-1.3 H BUN/CREATININE RATIO (test code = BUN/CREA) 16.7 10-20 N CALCIUM (test code = CA) 9.0 mg/dL 8.5-10.1 N [id number] 17:49:00* Test Item Value Reference Range Interpretation Comments TROPONIN-I (test code = TROPI) 0.115 ng/mL 0-0.045 HH Results called to [id number] by JULIANA 03/06/19 1749Critical results verified and read back by Nurse? Y B-TYPE NATRIURETIC [id number] 17:37:00* Test Item Value Reference Range Interpretation Comments B-TYPE NATRIURETIC PEPTIDE (test code = BNP) 74.26 pgram/mL 0-100 N - XR CHEST 1 [id number] 17:37:00 FAX: TOI FRIED MD [place]: St: REG Name: Svetlana NGUYỄNELYSSAMARILYN SÁNCHEZ [facility] : [birth year] Age/S: 73/M [address] [facility] Unit #: [id number] Loc: [place] [address] Phys: TOI FRIED MD Acct: [id number] Dis Date: Status: REG ER PHONE #: [phone] Exam Date: 03/06/2019 1710 FAX #: [phone] Reason: CHEST PAIN EXAMS: CPT CODE: [id number] XR CHEST 1 V 28258 HISTORY: CHEST PAIN TECHNIQUE: AP chest x-ray COMPARISON: 03/22/18 FINDIN GS: No airspace consolidation or pleural effusion. Cardiomegaly. Atherosclerotic vascular calcification of the thoracic aorta. Sternot tanya wires. Cervicothoracic spondylosis. IMPRESSION: No radiographic evidence of acute cardiopulmonary process. No sign ificant interval change. at 9052 Reported and signed by: Shante Dumont CC: TOI FRIED MD Technologist: DHAVAL FONG RT(R) Trnnykate Date/Time/By: 03/06/2019 (9839) : By: [email or web address] Orig Print D/T: S: 0 03/06/2019 (6561) PAGE 1 Signed Re port BASIC METABOLIC [id number] 17:11:00* Test Item Value Reference Range Interpretation Comments SODIUM (test code = NA) 137 mmol/L 136-145 N POTASSIUM (test code = K) 3.3 mmol/L 3.5-5.1 L CHLORIDE (test code = CL) 97.0 mmol/L 98-107 L CARBON DIOXIDE (test code = CO2) mmol/L 21-32 ANION GAP (test code = GAP) 10-20 GLUCOSE (test code = GLU) mg/dL 74-106 BLOOD UREA NITROGEN (test code = BUN) mg/dL 7-18 GLOMERULAR FILTRATION RATE (test code = GFR) mL/min >=60 CREATININE (test code = CREAT) mg/dL 0.7-1.3 BUN/CREATININE RATIO (test code = BUN/CREA) 10-20 CALCIUM (test code = CA) mg/dL 8.5-10.1 [id number] 17:11:00* Test Item Value Reference Range Interpretation Comments TROPONIN-I (test code = TROPI) ng/mL 0-0.045 CBC W/O [id number] 16:53:00* Test Item Value Reference Range Interpretation Comments WHITE BLOOD CELL (test code = WBC) 7.7 K/mm3 4.5-12.5 N RED BLOOD CELL (test code = RBC) 4.55 mill/mm3 4.0-5.8 N HEMOGLOBIN (test code = HGB) 13.5 gram/dL 13.0-17.5 N HEMATOCRIT (test code = HCT) 41.0 % 42.0-52.0 L MEAN CELL VOLUME (test code = MCV) 90.1 fL 80-98 N MEAN CELL HGB (test code = MCH) 29.7 picogram 27.0-33.0 N MEAN CELL HGB CONCETRATION (test code = MCHC) 32.9 gram/dL 33.0-36. 0 L RED CELL DISTRIBUTION WIDTH (test code = RDW) 13.4 % 11.6-16. 2 N PLATELET COUNT (test code = PLT) 296 K/mm3 150-450 N MEAN PLATELET VOLUME (test code = MPV) 9.4 fL 6.7-11.0 N CBC W/O [id number] 16:52:00* Test Item Value Reference Range Interpretation Comments WHITE BLOOD CELL (test code = WBC) K/mm3 4.5-12.5 RED BLOOD CELL (test code = RBC) mill/mm3 4.0-5.8 HEMOGLOBIN (test code = HGB) 13.5 gram/dL 13.0-17.5 N HEMATOCRIT (test code = HCT) % 42.0-52.0 MEAN CELL VOLUME (test code = MCV) fL 80-98 MEAN CELL HGB (test code = MCH) picogram 27.0-33.0 MEAN CELL HGB CONCETRATION (test code = MCHC) gram/dL 33.0-36. 0 RED CELL DISTRIBUTION WIDTH (test code = RDW) % 11.6-16. 2 PLATELET COUNT (test code = PLT) K/mm3 150-450 MEAN PLATELET VOLUME (test code = MPV) fL 6.7-11.0
--- OUTSIDE RECORDS SUMMARY | 2020-07-11 11:02 | XMS REPORT | Clinical Summary ---
Author Author [facility] Address Unknown Phone Unavailable Care Team Providers Care Retort Firer Name Role Phone Pcp, No PCP Unavailable Allergies Comments Active Allergy Reactions Severity Noted Date Furosemide 07/04/2019 Medications No known medications Active Problems Not on file Social History Date Tobacco Use Types Packs/Day Years Used Never Smoker Smokeless Tobacco: Never Used Alcohol Use Drinks/Week oz/Week Comments Yes Sex Assigned at Date Recorded Not on file Industry Job Start Date Occupation Not on file Not on file Not on file Travel End Travel History Travel Start No recent travel history available. Last Filed Vital Signs Not on file Plan of Treatment Not on file Results Not on fileafter 07/11/2019 Insurance Payer Benefit Subscriber ID Type Phone Address Plan / Group HUMANA - MEDICARE MGD HUMANA xxxxxxxxx [facility] MEDICARE Contracted ADV
--- OUTSIDE RECORDS SUMMARY | 2020-07-11 11:02 | XMS REPORT | Clinical Summary ---
Author Author [facility] Organization [place] Address Unknown Phone Unavailable Care Team Providers Care Photograph Mounter Name Role Phone Clem Coffey MD PCP Allergies Comments Active Allergy Reactions Severity Noted Date Blisters Furosemide 09/27/2018 Medications End Date Status Medication Sig Dispensed Refills Start Date Active azelastine-fluticasone 1 spray by 0 (DYMISTA) 137-50 Each Nare mcg/spray route 2 (two) spray,non-aerosol times a day as needed. Active amLODIPine (NORVASC) 5 mg Take 5 mg by 0 tablet mouth 2 (two) times a day. Active atorvastatin (LIPITOR) 40 Take 40 mg by 0 MG tablet mouth every morning. Active chlorthalidone (HYGROTEN) Take 50 mg by 0 50 MG tablet mouth every morning. Active clopidogrel (PLAVIX) 75 Take 75 mg by 0 mg tablet mouth every morning. Active isosorbide mononitrate Take 30 mg by 0 (IMDUR) 30 MG 24 hr mouth every tablet morning. Active lisinopril Take 40 mg by 0 (PRINIVIL,ZESTRIL) 40 mg mouth every tablet morning. Active potassium chloride Take 10 mEq 0 (K-DUR,KLOR-CON) 10 MEQ by mouth 2 CR tablet (two) times a day. Active insulin detemir U-100 Inject 38 0 (LEVEMIR) 100 unit/mL Units under injection the skin every morning. Active insulin detemir U-100 Inject 44 0 (LEVEMIR) 100 unit/mL Units under injection the skin nightly. Active insulin ASPART (NovoLOG) Inject 26 0 100 unit/mL injection Units under the skin 3 (three) times a day before meals. Active aspirin (ECOTRIN) 81 MG Take 81 mg by 0 enteric coated tablet mouth every morning. Active omega-3 fatty acids-fish Take 1,200 mg 0 oil (FISH OIL) 360-1,200 by mouth 2 mg capsule (two) times a day. Active folic acid 0.8 mg capsule Take 1,600 mg 0 by mouth every morning. Active vit Take 1 tablet 0 C/E/Zn/coppr/lutein/zeaxa by mouth 2 n (PRESERVISION AREDS-2 (two) times a ORAL) day. Active carboxymethylcellulose 1 Administer 2 0 % ophthalmic solution drops to both eyes 3 (three) times a day. Active pentoxifylline (TRENTal) Take 400 mg 0 400 mg CR tablet by mouth 3 (three) times a day with meals. Active terbinafine HCl (LamiSIL) Take 250 mg 0 250 mg tablet by mouth every morning. Active mometasone (ELOCON) 0.1 % Apply 1 0 cream application topically daily. Active mupirocin (BACTROBAN) 2 % Apply 1 0 ointment application topically 3 (three) times a day. Active naproxen sodium (ALEVE) Take 220 mg 0 220 MG tablet by mouth 2 (two) times a day as needed for mild pain. Active sulfacetamide sodium 10 % Apply 1 0 cream application topically 2 (two) times a day. Active Problems Problem Noted Date Syncope 09/27/2018 Diabetes type 2, uncontrolled 05/23/2017 Benign essential hypertension 05/23/2017 Coronary arteriosclerosis in [place] artery 7 Gastroesophageal reflux disease without esophagitis 05/23/2017 Hypercholesterolemia 05/23/2017 Social History Date Tobacco Use Types Packs/Day Years Used Never Smoker Smokeless Tobacco: Never Used Drinks/Week oz/Week Comments Alcohol Use occassional Yes Alcohol Habits Answer Date Recorded How often do you have a drink containing alcohol? Never 09/27/2018 How many drinks containing alcohol do you have on No t asked a typical day when you are drinking? How often do you have six or more drinks on one Not asked occasion? Sex Assigned at Date Recorded Not on file Industry Job Start Date Occupation Not on file Not on file Not on file Travel End Travel History Travel Start No recent travel history available. Last Filed Vital Signs Not on file Plan of Treatment Health Maintenance Due Date Last Done Comments DIABETIC RETINAL EYE EXAM 1945 DIABETIC FOOT EXAM 1955 URINE MICROALBUMIN 1955 COLONOSCOPY SCREENING 1995 65+ PNEUMOCOCCAL VACCINE 2010 11/03/2015 (2 of 2 - PPSV23) SHINGLES VACCINES (#2) 01/02/2012 11/03/2011 INFLUENZA VACCINE 08/03/2020 11/05/2017, 08/15/2016 Results Not on fileafter 07/11/2019 Insurance Type Payer Benefit Subscriber ID Effective Phone Address Plan / Dates Group PPO HUMANA MEDICARE HUMANA xxxxxxxxx 2017-P MEDICARE resent PPO/PFFS/E RS [facility] Advance Directives For more information, please contact: [phone] Patient Parimutuel Ticket Cashier Explanation Type Date Recorded Advance Directives, 09/27/2018 11:28 AM Living Will and Medical Power of Cover Seamer
[2020-07-11] MEDS: INSULIN LISPRO 100 UNIT/1 ML 3ML VIAL SQ SCH ×5 (11:30→21:00)
[2020-07-11] MEDS: PENTOXIFYLLINE 400 MG TAB CR PO SCH ×2 (14:24→21:00)
[2020-07-11] MEDS: AMLODIPINE BESYLATE 5 MG TAB PO SCH (18:00)
[2020-07-11] MEDS: POTASSIUM CHLORIDE 10MEQ EA PO SCH (18:00)
[2020-07-11] MEDS ORDERED: ATORVASTATIN 40 MG TAB PO SCH (21:00)
[2020-07-11] MEDS ORDERED: ATORVASTATIN 20 MG TAB PO SCH (21:00)
[2020-07-12 00:47] VITALS: BP 145/74
[2020-07-12 04:50] VITALS: BP 132/52
[2020-07-12] MEDS: SODIUM CHLORIDE 0.9% 1000ML 1,000 ML IV SCH ×2 (05:30)
[2020-07-12 06:41] LABS: ALBUMIN 3.6 g/dL (3.5-5.0); ALBUMIN/GLOBULIN RATIO 1.3 (0.8-2.0); ANION GAP 18.4 mmol/L (8-16); CALCIUM 8.6 mg/dL (8.4-10.2); CREATININE, SERUM 1.34 mg/dL (0.72-1.25); POTASSIUM 3.4 mmol/L (3.5-5.1)
[2020-07-12] MEDS: INSULIN LISPRO 100 UNIT/1 ML 3ML VIAL SQ SCH ×4 (07:30→12:27)
[2020-07-12 08:00] VITALS: BP 163/75
[2020-07-12 08:41] VITALS: BP 163/75
[2020-07-12] MEDS ORDERED: LISINOPRIL 10 MG TAB PO SCH (09:00)
[2020-07-12] MEDS ORDERED: LISINOPRIL 20 MG TAB PO SCH (09:00)
[2020-07-12] MEDS ORDERED: ISOSORBIDE MONONITRATE 30 MG TAB CR PO SCH (09:00)
[2020-07-12] MEDS ORDERED: VALACYCLOVIR HCL 500 MG TAB PO SCH (09:00)
[2020-07-12] MEDS ORDERED: ASPIRIN 81 MG CHEW TAB PO SCH (09:00)
[2020-07-12] MEDS ORDERED: TERBINAFINE 250 MG TAB PO SCH (09:00)
[2020-07-12] MEDS ORDERED: CLOPIDOGREL BISULFATE 75 MG TAB PO SCH (09:00)
[2020-07-12] MEDS: POTASSIUM CHLORIDE 10MEQ EA PO SCH (09:11)
[2020-07-12] MEDS: PENTOXIFYLLINE 400 MG TAB CR PO SCH (09:11)
[2020-07-12] MEDS: AMLODIPINE BESYLATE 5 MG TAB PO SCH (09:11)
[2020-07-12 11:30] VITALS: BP 119/47
--- NOTE | 2020-07-12 13:40 | NUR ---
patient discharged. IV access removed. telemetry removed. patient wheeled off unit to 's vehicle with all belongings. discharge instructions reviewed with . both aware of medication needed and follow up appts needed.
[2020-07-20] MEDS ORDERED: ESIDRIX25 MG PO (10:57)
[2020-07-20] MEDS ORDERED: ETHACRYNIC ACID25 MG PO (10:57)
== END 2020-07-12 13:40 | disposition home or self-care (01) ==
LOC: CATH LAB 06:37 → PACU V 09:20 → MED/SURG3 12:15
PROVIDERS: ADMIT Internal Medicine Interventional Cardiology; ATTEND Internal Medicine Interventional Cardiology
DX: I25.708 Atherosclerosis of coronary artery bypass graft(s), unspecified, with other forms of angina pectoris (principal); R42 Dizziness and giddiness; G40.909 Epilepsy, unspecified, not intractable, without status epilepticus; I10 Essential (primary) hypertension; Z83.3 Family history of diabetes mellitus; Z82.49 Family history of ischemic heart disease and other diseases of the circulatory system; Z95.1 Presence of aortocoronary bypass graft; Z88.8 Allergy status to other drugs, medicaments and biological substances; Z11.59 Encounter for screening for other viral diseases
CPT/HCPCS: 33210; 93455; C9604; 36415; 80053; 82948; 85025; 92937; 93459; 94660; 96360; 96361; 99152; 99153; C1725; C1769; C1874; C1887; C1894; G0378; J0153; J0583; J1327; J2001; J2250; J2405; J3010; J7030; Q9967; U0002

== ENCOUNTER 2020-07-12 23:39 | Observation (INO) | payer MEDICARE ==
[~2020-07-12] VITALS: Ht 175.3 cm; Wt 142.9 kg
[2020-07-13 00:36] LABS: BASOPHILS % 0.2 % (0.0-1.0); EOSINOPHILS # (AUTO) 0.1 (0.0-0.4); EOSINOPHILS % 0.6 % (0.0-6.0); HEMATOCRIT 35.3 % (38.2-49.6); HEMOGLOBIN 11.8 g/dL (14.0-18.0); LYMPHOCYTES # (AUTO) 2.5 (1.0-3.2); LYMPHOCYTES % 25.5 % (18.0-39.1); MEAN CORPUSCULAR HEMOGLOBIN 30.6 pg (28-32); MEAN CORPUSCULAR HGB CONC 33.4 g/dL (31-35); MEAN CORPUSCULAR VOLUME 91.5 fL (81-99); MONOCYTES # (AUTO) 0.8 (0.2-0.8); MONOCYTES % 7.9 % (4.4-11.3); NEUTROPHILS # (AUTO) 6.4 (2.1-6.9); NEUTROPHILS % 65.5 % (38.7-80.0); PLATELET COUNT 284 x10e3/uL (140-360); RED BLOOD COUNT 3.86 x10e6/uL (4.3-5.7); RED CELL DISTRIBUTION WIDTH 14.6 % (11.7-14.4)
[2020-07-13 00:46] LABS: INR 0.88; PROTHROMBIN TIME 12.4 seconds (11.9-14.5)
[2020-07-13 00:47] LABS: PARTIAL THROMBOPLASTIN TIME 23.2 seconds (23.8-35.5)
[2020-07-13 00:53] LABS: ALBUMIN 3.8 g/dL (3.5-5.0); ALBUMIN/GLOBULIN RATIO 1.3 (0.8-2.0); ANION GAP 14.4 mmol/L (8-16); CALCIUM 9.1 mg/dL (8.4-10.2); CREATININE, SERUM 2.06 mg/dL (0.72-1.25); POTASSIUM 3.4 mmol/L (3.5-5.1)
[2020-07-13 01:00] LABS: CREATINE KINASE MB 1.7 ng/mL (0-5.0)
[2020-07-13] MEDS ORDERED: INSULIN REGULAR, HUMAN 100 UNIT/1 ML 3ML VIAL SQ ONE (01:15)
[2020-07-13] MEDS ORDERED: SODIUM CHLORIDE 0.9% 1000ML 1,000 ML IV SCH (01:15)
[2020-07-13] MEDS ORDERED: MORPHINE SULFATE 2 MG/ML SYR 1ML IV PRN (01:45)
[2020-07-13] MEDS ORDERED: ONDANSETRON HCL INJ 2MG/ML 2ML 2 MG/ML VIAL IV PRN (01:45)
[2020-07-13] MEDS ORDERED: DEXTROSE 50% SYRINGE 50 ML IV PRN (01:45)
[2020-07-13 09:16] LABS: BASOPHILS % 0.1 % (0.0-1.0); EOSINOPHILS # (AUTO) 0.1 (0.0-0.4); EOSINOPHILS % 1.6 % (0.0-6.0); HEMATOCRIT 32.2 % (38.2-49.6); HEMOGLOBIN 10.6 g/dL (14.0-18.0); LYMPHOCYTES # (AUTO) 1.9 (1.0-3.2); LYMPHOCYTES % 28.3 % (18.0-39.1); MEAN CORPUSCULAR HEMOGLOBIN 31.1 pg (28-32); MEAN CORPUSCULAR HGB CONC 32.9 g/dL (31-35); MEAN CORPUSCULAR VOLUME 94.4 fL (81-99); MONOCYTES # (AUTO) 0.8 (0.2-0.8); MONOCYTES % 11.7 % (4.4-11.3); NEUTROPHILS # (AUTO) 3.9 (2.1-6.9); NEUTROPHILS % 58.2 % (38.7-80.0); PLATELET COUNT 247 x10e3/uL (140-360); RED BLOOD COUNT 3.41 x10e6/uL (4.3-5.7); RED CELL DISTRIBUTION WIDTH 14.6 % (11.7-14.4)
[2020-07-13 09:43] LABS: ALBUMIN 3.4 g/dL (3.5-5.0); ALBUMIN/GLOBULIN RATIO 1.3 (0.8-2.0); ANION GAP 17.3 mmol/L (8-16); CALCIUM 8.3 mg/dL (8.4-10.2); CREATININE, SERUM 1.66 mg/dL (0.72-1.25); POTASSIUM 3.3 mmol/L (3.5-5.1)
[2020-07-13 09:50] LABS: CREATINE KINASE MB 3.6 ng/mL (0-5.0)
[2020-07-13 10:03] LABS: CHOL/HDL RATIO 4.9 (3.9-4.7)
[2020-07-13] MEDS: INSULIN REGULAR, HUMAN 100 UNIT/1 ML 3ML VIAL SQ SCH ×3 (10:25→16:30)
[2020-07-13] MEDS ORDERED: LIDOCAINE HCL 2% LOCAL 20 ML VIAL ONE (13:48)
[2020-07-13] MEDS ORDERED: HEPARIN SOD/SOD CHLORIDE 2,000 ML ONE (13:49)
[2020-07-13] MEDS ORDERED: IOPAMIDOL 370 MG/ML 200 ML INFUS..BTL INJ ONE (13:49)
[2020-07-13] MEDS ORDERED: MIDAZOLAM HCL 2 MG/2 ML VIAL ONE (14:05)
[2020-07-13] MEDS ORDERED: FENTANYL CITRATE/PF 100MCG/2 ML INJ ONE (14:05)
[2020-07-13] MEDS ORDERED: SODIUM CHLORIDE 0.9% 1000ML 1,000 ML ONE (14:10)
[2020-07-13] MEDS ORDERED: HYDRALAZINE HCL 20 MG/ML VIAL ONE (14:56)
[2020-07-13] MEDS ORDERED: CLOPIDOGREL BISULFATE 75 MG TAB ONE (15:02)
[2020-07-13 16:01] VITALS: BP 152/72
[2020-07-13 16:12] VITALS: BP 152/72
[2020-07-13 17:13] VITALS: BP 136/57
[2020-07-13 21:14] LABS: CREATINE KINASE MB 2.5 ng/mL (0-5.0)
[2020-07-20] MEDS ORDERED: ETHACRYNIC ACID25 MG PO (10:57)
[2020-07-20] MEDS ORDERED: ESIDRIX25 MG PO (10:57)
== END 2020-07-13 21:21 | disposition home or self-care (01) ==
LOC: ER 23:56 → ERHOLD 07-13 01:41 → MED/SURG 07-13 15:34
PROVIDERS: ADMIT Internal Medicine Interventional Cardiology; ATTEND Internal Medicine Interventional Cardiology
DX: I25.710 Atherosclerosis of autologous vein coronary artery bypass graft(s) with unstable angina pectoris (principal); E78.5 Hyperlipidemia, unspecified; D64.9 Anemia, unspecified; E66.9 Obesity, unspecified; Z68.42 Body mass index [BMI] 45.0-49.9, adult; I10 Essential (primary) hypertension; Z11.59 Encounter for screening for other viral diseases
CPT/HCPCS: 36415; 71045; 76937 ×2; 80053; 80061; 82550; 82553; 82947; 82948; 83880; 84484; 85025; 85610; 85730; 93005 ×2; 93455; 99285; C1766; C1769; G0378; J0360; J1817; J2001; J2250; J2270; J2405; J3010; J7030; Q9967; U0002; 99152; 99153

== ENCOUNTER 2020-07-15 14:31 | Inpatient (IN) | payer MEDICARE, OTHER ==
[~2020-07-15] VITALS: Ht 175.3 cm; Wt 144.9 kg
[2020-07-15] MEDS ORDERED: ASPIRIN 81 MG CHEW TAB PO ONE ×2 (14:45→18:15)
--- NOTE | 2020-07-15 15:28 | Diagnostic Imaging Report ---
EXAMINATION: Head CT HISTORY: Dizziness, evaluate for acute cerebrovascular accident. COMPARISON: None. TECHNIQUE: Helical axial images of the head were obtained. Reformatted coronal and sagittal images from the axial data. Dose modulation, iterative reconstruction, and/or weight based adjustment of the mA/kV was utilized to reduce the radiation dose to as low as reasonably achievable. Image quality: Motion/streaking artifact limits the evaluation of the skull base and posterior cranial fossa. FINDINGS: Parenchyma: 1. Few scattered primary hypodensities, most likely nonspecific chronic microvascular ischemic changes. 2. No mass or hemorrhage. No CT evidence of acute territorial vascular insult. Extra-axial spaces:No abnormal density. No extra-axial fluid collections Brain volume: Normal for age. Ventricles: No hydrocephalus or displacement. Arteries: No density suggestive of thrombus. Dural sinuses: No abnormal density. Foramen magnum: No mass, Chiari malformation, or basilar invagination. Sella: No obvious mass. Paranasal/mastoid sinuses: Imaged portions unremarkable. Skull/Scalp: No lytic or blastic lesions. No fractures. IMPRESSION: 1. No acute intracranial hemorrhage or CT evidence of acute territorial cortical infarct. 2. Mild white matter chronic microvascular ischemic changes. Signed by: Dr. Johnna Reno M.D. on 07/15/2020 3:25 PM
[2020-07-15 15:35] LABS: BASOPHILS % 0.3 % (0.0-1.0); EOSINOPHILS # (AUTO) 0.2 (0.0-0.4); EOSINOPHILS % 2.2 % (0.0-6.0); HEMATOCRIT 32.1 % (38.2-49.6); HEMOGLOBIN 10.5 g/dL (14.0-18.0); LYMPHOCYTES # (AUTO) 1.9 (1.0-3.2); LYMPHOCYTES % 24.6 % (18.0-39.1); MEAN CORPUSCULAR HEMOGLOBIN 30.5 pg (28-32); MEAN CORPUSCULAR HGB CONC 32.7 g/dL (31-35); MEAN CORPUSCULAR VOLUME 93.3 fL (81-99); MONOCYTES # (AUTO) 0.7 (0.2-0.8); MONOCYTES % 9.1 % (4.4-11.3); NEUTROPHILS % 63.5 % (38.7-80.0); PLATELET COUNT 267 x10e3/uL (140-360); RED BLOOD COUNT 3.44 x10e6/uL (4.3-5.7); RED CELL DISTRIBUTION WIDTH 14.6 % (11.7-14.4)
[2020-07-15 15:46] LABS: INR 0.94; PARTIAL THROMBOPLASTIN TIME 22.7 seconds (23.8-35.5)
--- OUTSIDE RECORDS SUMMARY | 2020-07-15 15:49 | XMS REPORT | Clinical Summary ---
Author Author Grimaldo [facility] Organization [facility] Address Unknown Phone Unavailable Care Team Providers Care Automatic Door Mechanic Name Role Phone Clem Coffey MD PCP [...] Benign essential hypertension 05/23/2017 Coronary arteriosclerosis in [place] artery 7 Gastroesophageal reflux disease without esophagitis [...] 08/03/2020 11/05/2017, 08/15/2016 Results Not on fileafter 07/15/2019 Insurance Type Payer Benefit Subscriber ID Effective Phone Address Plan / Dates Group PPO HUMANA MEDICARE HUMANA xxxxxxxxx 2017-P MEDICARE resent PPO/PFFS/E RS [facility] Advance Directives For more information, please contact: [phone] Patient Guest Service Aide Explanation Type Date Recorded Advance Directives, 09/27/2018 11:28 AM Living Will and Medical Power of Identification Printing Machine Setter
--- OUTSIDE RECORDS SUMMARY | 2020-07-15 15:49 | XMS REPORT | Clinical Summary ---
Author Author [facility] Address Unknown Phone Unavailable Care Team Providers Care Electrostatic Painter Name Role Phone Pcp, No PCP Unavailable [...] Health Maintenance Due Date Last Done Comments COLON CANCER SCREENING 1945 COLONOSCOPY PNEUMOCOCCAL 65+ 2010 LOW/MEDIUM RISK (1 of 2 - PCV13) MEDICARE ANNUAL WELLNESS 11/04/2018 (YEAR 2 or FIRST YEAR if no IPPE) INFLUENZA VACCINE (#1) 2020 Results Not on fileafter 07/15/2019 Insurance Payer Benefit Subscriber ID Type Phone Address Plan / Group HUMANA - MEDICARE MGD HUMANA xxxxxxxxx [facility] MEDICARE Contracted ADV
--- OUTSIDE RECORDS SUMMARY | 2020-07-15 15:49 | XMS REPORT | Continuity of Care Document ---
Author Author [facility] t Organization [facility] Address [address] [place] [address] Phone Unavailable Care Team Providers Care Flash Ranging Crewmember Name Role Phone NONSTAFF PCP Unavailable Mack VEGA Attphys Unavailable Kash GARCIA Attphys Unavailable TRENTON AMANDA Attphys Unavailable Payers Payer Name Policy Type Policy Number Effective Date Expiration Date [employer] Medicare Replacement [id number] 2012 00:00:00 [facility] Problems Condition Name Condition Details Condition Category Status Onset Date Resolution Date Last Treatment Date Treating Clinician Comments Source Hyperglycemia due to type 2 diabetes mellitus Hypergly cemia Due to Type 2 Diabetes Mellitus Problem Active 2019-12-21 00:00:00 [facility] Syncope Syncope Disease Active 2018-09-27 00:00:00 Dillan Winters Body mass index 40+ - severely obese Body Mass Index 40+ - S everely Obese Problem Active 2017-05-23 00:00:00 [facility] Diabetes type 2, uncontrolled Diabetes type 2, uncontrolled Disease Active 2017-05-23 00:00:00 Dillan Winters Benign essential hypertension Benign essential hypertension Disease Active 2017-05-23 00:00:00 Dillan Winters 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 Coronary ar teriosclerosis in pilot station artery Disease Active 2017-05-23 00:00:00 Alejo Winters Gastroesophageal reflux disease without esophagitis Ga stroesophageal reflux disease without esophagitis Disease Active 2017-05-23 00:00:00 Dillan Winters Hypercholesterolemia Hypercholesterolemia Disease Active 00:00:00 Dillan Winters Chest pain Problem Active [facility] Allergies, Adverse Reactions, Alerts Allergy Name Allergy Type Status Severity Reaction(s) Onset Date Inacti ve Date Treating Clinician Comments Source Furosemide Allergy to substance Active 2020-07-06 00:00:00 [facility] Furosemide Propensity to adverse reactions Active 1 00:00:00 [facility] furosemide DA Active SV 2019-03-06 00:00:00 [facility] Furosemide Propensity to adverse reactions to drug Active 2018-09-27 00:00:00 Blisters Dillan pelayo No Known Allergies DA Active U 2014-03-08 00:00:00 [facility] Lasix Allergy to substance Active Rash [facility] Social History Social Habit Start Date Stop Date Quantity Comments Source History SDOH Alcohol Std Drinks Dillan Winters History SDOH Alcohol Binge Dillan Winters Sex Assigned At Kylie graham Gnosticist Alcohol intake 2018-09-27 00:00:00 2018-09-27 00:00:00 Current drinker of alcohol (finding) Dillan Winters History SDOH Alcohol Frequency 2018-09-27 00:00:00 2018-09-27 00:00:0 0 1 Dillan Winters Alcohol Comment 2018-09-27 00:00:00 2018-09-27 00:00:00 occassional [...] 2 (two) times a day as needed. Dillan Winters amLODIPine (NORVASC) 5 mg tablet 2018-09-29 16:26:25 Yes 5mg Q.5D Take 5 mg by mouth 2 (two) times a day. Dillan Winters atorvastatin (LIPITOR) 40 MG tablet 2018-09-29 16:26:25 Yes 40mg QD Take 40 mg by mouth every morning. Dillan bryson chlorthalidone (HYGROTEN) 50 MG tablet 2018-09-29 16:26:25 Yes 50mg QD Take 50 mg by mouth every morning. Scooter ca Gnosticist clopidogrel (PLAVIX) 75 mg tablet 2018-09-29 16:26:25 Yes 75mg QD Take 75 mg by mouth every morning. Dillan Monae thodist isosorbide mononitrate (IMDUR) 30 MG 24 [...] unit/mL injection 2018-09-29 16:26: 25 Yes 26U Q.[id number] Inject 26 Units under the sk in [...] 1,600 mg by mouth every morning. Dillan Methliss dist vit C/E/Zn/coppr/lutein/zeaxan (PRESERVISION AREDS-2 ORAL) 2018-09-29 16:26:25 Yes 1{tbl} Q.5D Take 1 tablet by mouth 2 (two) times a day. Dillan Winters carboxymethylcellulose 1 % ophthalmic solution 2018-09-29 16:26: 25 Yes 2[drp] Q.[id number] Administer 2 drops to both e yes 3 (three) times a day. Dillan Winters pentoxifylline (TRENTal) 400 mg CR tablet 2018-09-29 16:26:25 Yes 400mg Q.[id number] Take 400 mg by mouth 3 (three) times a day with meals. Dillan Winters terbinafine HCl (LamiSIL) 250 mg tablet 2018-09-29 16:26:25 Yes 250mg QD Take 250 mg by mouth every morning. Dillan Winters mometasone (ELOCON) 0.1 % cream 2018-09-29 16:26:25 Yes 1{application} QD Apply 1 application topically daily. Dillan Winters mupirocin (BACTROBAN) 2 % ointment 2018-09-29 16:26:25 Y es 1{application} Q.[id number] Apply 1 application topicall y 3 (three) [...] mg 2 every 8 hours as needed [facility] amlodipine 5 mg tablet Take 1 tablet twice a day by or al route. amlodipine 5 mg tablet Take 1 tablet twice a day by oral route. No amlodipine 5 mg tablet Take 1 tablet twice a day by oral route. [facility] atorvastatin 40 mg tablet TAKE ONE TABLET BY MOUTH MISAEL STEFANO atorvastatin 40 mg tablet TAKE ONE TABLET BY MOUTH DAILY No atorvastatin 40 mg tablet TAKE ONE TABLET BY MOUTH DAILY [facility] Practice BD Ultra-Fine Mini Pen Needle 31 gauge x 3/16" TEST BL OOD SUGAR DAILY BD Ultra- Fine Mini Pen Needle 31 gauge x 3/16" TEST BLOOD SUGAR DAILY No BD Ultra-Fine Mini Pen Needle 31 gauge x 316" TEST BLOOD SUGAR DAILY [facility] chlorthalidone 50 mg tablet TAKE ONE TABLET BY MOUTH D AILY chlorthalidone 50 mg tablet TAKE ONE TABLET BY MOUTH DAILY No chlorthalidone 50 mg tablet TAKE ONE TABLET BY MOUTH DAILY [facility] Practice clopidogrel 75 mg tablet TAKE ONE TABLET BY MOUTH GLENDY Y clopidogrel 75 mg tablet TAKE ONE TABLET BY MOUTH DAILY No clopidogrel 75 mg tablet TAKE ONE TABLET BY MOUTH DAILY [facility] Pr actice desonide 0.05 % [...] BY TOPICAL ROUTE 2 TIMES PER DAY [facility] Fish Oil 1200 mg twice a day Fish Oil 1200 mg twice a day N o Fish Oil 1200 mg twice a day [facility] P ractice folic acid 1600 mg TAKE ONE TABLET BY MOUTH DAILY foli c acid 1600 mg TAKE ONE TABLET BY MOUTH DAILY No fo lic acid 1600 mg TAKE ONE TABLET BY MOUTH DAILY [facility] ice isosorbide mononitrate ER 30 mg tablet,extended releas e 24 hr 1 daily isosorbide mononitrate ER 30 mg tablet,extended release 24 hr 1 daily No isosorbide mononitrate ER 30 mg tablet,extended release 24 hr 1 daily [facility] Levemir FlexTouch U-100 Insulin 100 unit/mL (3 mL) sub cutaneous pen Levemir FlexTouch U-100 Insulin 100 unit/mL (3 mL) subcutaneous pen No Levemir FlexTouch U-100 Insulin 100 unit/mL (3 mL) subcutaneous pen [facility] lisinopril 40 mg tablet TAKE ONE TABLET BY MOUTH DAILY lisinopril 40 mg tablet TAKE ONE TABLET BY MOUTH DAILY No lisinopril 40 mg tablet TAKE ONE TABLET BY MOUTH DAILY [facility] Pra ctice Longs Adult Low Strength ASA 81 mg table t,delayed release Take 1 tablet every day by oral route. Longs Adult Low Strength ASA 81 mg table t,delayed release Take 1 tablet every day by oral route. No 1 Q1D Longs Adult Low Strength ASA 81 mg tablet,delayed release Take 1 tablet every day by oral route. [facility] Practice metoprolol tartrate 25 mg tablet 0.5 tablet twice a da y metoprolol tartrate 25 mg tablet 0.5 tablet twice a day No metoprolol tartrate 25 mg tablet 0.5 tablet twice a day [facility] ractice Microlet Lancet 3 TIMES A DAY Microlet Lancet 3 TIMES A DAY No Microlet Lancet 3 TIMES A DAY [facility] mometasone furoate (bulk) 0.10 % apply thin layer mome tasone furoate (bulk) 0.10 % apply thin layer No mome tasone furoate (bulk) 0.10 % apply thin layer [facility] Pract ice mupirocin 2 % topical ointment APPLY [...] BY TOPICAL ROUTE 3 TIMES PER DAY [facility] Novolog Flexpen U-100 Insulin aspart 100 unit/mL (3 mL) subcutaneous 26 units per meal size Novolog Flexpen U-100 Insulin aspart 100 unit/mL (3 mL) subcutaneous 26 units per meal size No Novolog Flexpen U-100 Insulin aspart 100 unit/mL (3 mL) subcutaneous 26 units per meal size [facility] OneTouch Verio test strips TEST BLOOD SUGAR DAILY OneT ouch Verio test strips TEST BLOOD SUGAR DAILY No O neTouch Verio test strips TEST BLOOD SUGAR DAILY [facility] Pract ice pen needle, diabetic 31 gauge x 1/4" pen needle, diabetic 31 gauge x 1/4" No pen needle, diabetic 31 gauge x 1/4" [facility] pentoxifylline ER 400 mg tablet,extended release Take 1 tablet 3 times a day by oral route. pentoxifylline ER 400 mg tablet,extended release Take 1 tablet 3 times a day by oral route. No pentoxifylline ER 400 mg tablet,extended release Take 1 tablet 3 times a day by oral route. [facility] potassium chloride ER 10 mEq tablet,exte nded release TAKE ONE TABLET BY TWICE A DAY potassium chloride ER 10 mEq tablet,exte nded release TAKE ONE TABLET BY TWICE A DAY No potassium ch loride ER 10 mEq tablet,extended release TAKE ONE TABLET BY TWICE A DAY [facility] PreserVision AREDS 1 twice a day PreserVision AREDS 1 twice a day No PreserVision AREDS 1 twice a day [facility] sulfacetamide sodium (acne) 10 % lotion (suspension) t wice a day sulfacetamide sodium (acne) 10 % lotion (suspension) twice a day No sulfacetamide sodium (acne) 10 % lotion (suspension) twice a day [facility] Tears Refreshed eye drops 2 drops three times a day Te ars Refreshed eye drops 2 drops three times a day No Tears Refreshed eye drops 2 drops three times a day [facility] ice terbinafine HCl 250 mg tablet QD terbinafine HCl 250 mg tablet QD No terbinafine HCl 250 mg tablet QD [facility] Acetaminophen Acetaminophen Yes 650 Every 8 Hours as needed for Moderate Pain (4-6) [facility] Amlodipine Besylate Amlodipine Besylate Yes 5 Twice A Day [facility] Aspirin (Aspir 81) 81 Mg TABLET. Aspirin (Aspir 81) 81 Mg TABLET. Yes 81 Daily [facility] Atorvastatin Calcium Atorvastatin Calcium Yes 40 Bedtime [facility] Azelastine Hcl Azelastine Hcl Yes 1 Daily [facility] Beta Carotene (Preservision Tablet) 1 Each TAB Beta Ca rotene (Preservision Tablet) 1 Each TAB Yes 1 Twice A Day [facility] Chlorthalidone Chlorthalidone Yes 50 Daily [facility] Clopidogrel Bisulfate (Clopidogrel) 75 Mg TABLET Clopi dogrel Bisulfate (Clopidogrel) 75 Mg TABLET Yes 75 Daily [facility] Desonide Desonide Yes 1 Three Times A Day [facility] Fish Oil/Dha/Epa (Fish Oil 1,200 Mg Fish Oil) 1 Each C APSULE Fish Oil/Dha/Epa (Fish Oil 1,200 Mg Fish Oil) 1 Each CAPSULE Yes 1 Twice A Day [facility] Flurourcil 5%Cream Flurourcil 5%Cream Yes 1 Da susan [facility] Folic Acid Folic Acid Yes 1600 Daily [facility] Insulin Aspart (Novolog) 100 Unit/1 Ml CARTRIDGE Insul in Aspart (Novolog) 100 Unit/1 Ml CARTRIDGE Yes 26 Three Times Daily With Meals [facility] Insulin Detemir (Levemir) 100 Unit/1 Ml VIAL Insulin D etemir (Levemir) 100 Unit/1 Ml VIAL Yes Twice A Day [facility] Isosorbide Mononitrate (Isosorbide Mononitrate Er) 30 Mg TAB.ER.24H Isosorbide Mononitrate (Isosorbide Mononitrate Er) 30 Mg TAB.ER.24H Yes 30 Daily [facility] Lisinopril Lisinopril Yes 40 Daily [facility] Mometasone Furoate (Elocon) 15 Gm OINT...G. Mometasone Furoate (Elocon) 15 Gm OINT...G. Yes 1 Daily as needed for Break Ou t [facility] Mupirocin Mupirocin Yes 1 Three Times A Day as needed for Break Out [facility] Pentoxifylline Pentoxifylline Yes 400 Three Time s A Day [facility] Potassium Chloride Potassium Chloride Yes 10 Tw ice A Day [facility] Refresh Advance Refresh Advance Yes 1 Use As D irected [facility] Terbinafine Hcl Terbinafine Hcl Yes 250 Daily [facility] Tylenol Arthritis Tylenol Arthritis Yes 22 0 As Needed as needed for Moderate Pain (4-6) [facility] Valacyclovir Hcl (Valacyclovir) 500 Mg TABLET Valacycl ovir Hcl (Valacyclovir) 500 Mg TABLET Yes 500 Daily [facility] Azelastine/Fluticasone (Dymista Nasal Trimble) 23 Gm SPR AY.PUMP Azelastine/Fluticasone (Dymista Nasal Trimble) 23 Gm SPRAY.PUMP 2020-07-06 00:00:00 No Daily [facility] Bd Ultrafine Pen Bd Ultrafine Pen 2020-07-06 00:00:00 No Use As Directed [facility] Fish Oil/Dha/Epa (Fish Oil 1,200 Mg Fish Oil) 1 Each C APSULE Fish Oil/Dha/Epa (Fish Oil 1,200 Mg Fish Oil) 1 Each CAPSULE 2020-07-06 00:00:00 No 1 Twice A Day [facility] Folic Folic 2020-07-06 00:00:00 No [facility] Ibuprofen Ibuprofen 2020-07-06 00:00:00 No 220 Daily as needed for Pain [facility] Naproxen Sodium (Aleve) 220 Mg TABLET Naproxen Sodium (Aleve) 22 0 Mg TABLET 2020-07-06 00:00:00 No 2 Daily as needed for Pain [facility] Polyvinyl Alcohol/Povidone/Pf (Refresh Classic Eye Usman ps) 1 Each DROPERETTE Polyvinyl Alcohol/Povidone/Pf (Refresh Classic Eye Drops) 1 Each DROPERETTE 2020-07-06 00:00:00 No 1 Three Times A Day [facility] Proservision Areds 2 Proservision Areds 2 2020-07-06 00:00:00 No 1 Twice A Day [facility] Sulfacetamide Sodium Sulfacetamide Sodium 2020-07-06 00:00:00 No 1 Twice A Day [facility] Immunizations Ordered Immunization Name Filled Immunization Name Date Status Comments Source pneumococcal polysaccharide PPV23 pneumococcal polysaccharid e PPV23 2019-08-10 00:00:00 Completed [facility] ice influenza, injectable, quadrivalent influenza, injectable, q uadrivalent 2019-08-10 00:00:00 Completed [facility] ice influenza, high dose seasonal influenza, high dose seasonal 2017 11:36:49 Completed [facility] influenza, high dose seasonal influenza, high dose seasonal 2015 15:07:33 Completed [facility] pneumococcal, unspecified formulation pneumococcal, unspecif ied formulation 2015-11-03 00:00:00 Completed [facility] ice zoster live zoster live 2011-11-03 00:00:00 Completed [facility] Vital Signs Vital Name Observation Time Observation Value Comments Source Height 2020-06-02 00:00:00 67 [in_i] [facility] BP Diastolic 2019-11-22 00:00:00 79 mm[Hg] [facility] Height 2019-11-22 00:00:00 67 [in_i] [facility] BMI (Body Mass Index) 2019-11-22 00:00:00 48.4 kg/m2 [facility] BP Systolic 2019-11-22 00:00:00 171 mm[Hg] [facility] Body Weight 2019-11-22 00:00:00 308.8 [lb_av] [facility] BP Diastolic 2019-10-18 00:00:00 87 mm[Hg] [facility] Height 2019-10-18 00:00:00 67 [in_i] [facility] BMI (Body Mass Index) 2019-10-18 00:00:00 48.6 kg/m2 [facility] BP Systolic 2019-10-18 00:00:00 161 mm[Hg] [facility] Body Weight 2019-10-18 00:00:00 310 [lb_av] [facility] Body Temperature 2020-07-13 17:13:00 98.0 [degF] [facility] Weight 2020-07-13 15:57:00 315 [lb_av] [facility] BMI (Body Mass Index) 2020-07-13 15:57:00 46.5 kg/m2 [facility] Body Temperature 2020-07-12 11:30:00 98.0 [degF] [facility] BMI (Body Mass Index) 2020-07-11 13:48:00 42.0 kg/m2 [facility] Weight 2020-07-06 16:48:00 310 [lb_av] [facility] Procedures This patient has no known procedures. Plan of Care Planned Activity Planned Date Details Comments Source Future Scheduled Test 2020-08-03 00:00:00 INFLUENZA VACCINE [code = INFLUENZA VACCINE] Dillan Winters Future Scheduled Test 2020-07-04 00:00:00 INFLUENZA VACCINE (#1) [code = INFLUENZA VACCINE (#1)] [facility] Future Scheduled Test 2018-11-04 00:00:00 MEDICARE ANNUAL WE LLNESS (YEAR 2 or FIRST YEAR if no IPPE) [code = MEDICARE ANNUAL WELLNESS (YEAR 2 or FIRST YEAR if no IPPE)] [facility] Future Scheduled Test 2012-01-02 00:00:00 SHINGLES VACCINES (#2) [code = SHINGLES VACCINES (#2)] [facility] Scheduled Test 2010 00:00:00 PNEUMOCOCCAL 65+ L OW/MEDIUM RISK (1 of 2 - PCV13) [code = PNEUMOCOCCAL 65+ LOW/MEDIUM RISK (1 of 2 - PCV13)] [facility] Future Scheduled Test 2010 00:00:00 65+ PNEUMOCOCCAL V ACCINE (2 of 2 - PPSV23) [code = 65+ PNEUMOCOCCAL VACCINE (2 of 2 - PPSV23)] [facility] Scheduled Test 1995 00:00:00 COLONOSCOPY SCREEN ING [code = COLONOSCOPY SCREENING] [facility] Scheduled Test 1955 00:00:00 DIABETIC FOOT EXAM [code = DIABETIC FOOT EXAM] [facility] Scheduled Test 1955 00:00:00 URINE MICROALBUMIN [code = URINE MICROALBUMIN] [facility] Scheduled Test 1945 00:00:00 Screening for roni gnant neoplasm of colon (procedure) [code = 729805533] [facility] Future Scheduled Test 1945 00:00:00 DIABETIC RETINAL E YE EXAM [code = DIABETIC RETINAL EYE EXAM] [facility] Chest Pain - Chest Wall [facility] Encounters Start Date/Time End Date/Time Encounter Type Admission Type Attendi [facility] Care Department Encounter ID Source 2020-07-13 01:41:00 2020-07-13 21:21:00 Discharged Inpatient (obs) 1 HADLEY GARCIA [facility] [id number] [facility] 2020-07-11 09:20:00 2020-07-12 13:40:00 Discharged Inpatient (obs) [facility] [id number] [facility] 2020-06-02 00:00:00 2020-06-02 00:00:00 Luis M Nava MD: [address], [place] [address], Ph. V [facility] - _STARLAU_[place] [id number] [facility] 2020-04-26 00:00:00 2020-04-26 00:00:00 Dodie Ferro P: [address], [address], [place] [address], [facility] [id number] [facility] 2019-11-22 00:00:00 2019-11-22 00:00:00 Luis M Nava MD: [address], [place] [address], Ph. V [facility]_KYLIE[facility] [id number] [facility] 2019-10-18 00:00:00 2019-10-18 00:00:00 Luis M Nava MD: [address], [place] [address], Ph. V [facility]_KYLIE_[place] [id number] [facility] Results Test Description Test Time Test Comments Results Result Comments Source CT BRAIN WO 2020-07-15 15:22:00 [facility] [address] [address] Patient Name: ELYSSA FERNANDEZ MR #: [id number] : 1945 Age/Sex: 75/M Req #: [id number] Adm Physician: Ordered by: SLAVA VEGA MD Report #: [id number] Location: ER Room/Bed: Procedure: [id number] CT/CT BRAIN WO Exam Date: 07/15/20 Exam Time: 1500 REPORT STATUS: Signed EXAMINATION: Head CT HISTORY: Dizziness, evaluate for acute cerebrovascular accident. COMPARISON: None. TECHNIQUE: Helical axial images of the head were obtained. Reformatted coronal and sagittal images from the axial data. Dose modulation, iterative reconstr uction, and/or weight based adjustment of the mA/kV was utilized to reduce the radiation dose to as low as reasonably achievable. Image quality: Motion/streaking artifact limits the evaluation of the skull base and posterior cranial fossa. FINDINGS: Parenchyma: 1. Few scattered primary hypodensities, most likely nonspecific chronic microvascular ischemic changes. 2. No mass or hemorrhage. No CT evidence of acute territorial vascular insult. Extra-axial spaces:No abnormal density. No extra-axial fluid collections Brain volume: Normal for age. Ventricles: No hydrocephalus or displacement. Arteries: No density suggestive of thrombus. Dural sinuses: No abnormal density. Foramen magnum: No mass, Chiari malformation, or basilar invagination. Sella: No obvious mass. Paranasal/mastoid sinuses: Imaged portions unremarkable. Skull/Scalp: No lytic or blastic lesions. No fractures. IMPRESSION: 1. No acute intracranial hemorrhage or CT evidence of acute territorial cortical infarct. 2. Mild white matter chronic microvascular ischemic changes. Signed by: Dr. Rosalind Reno M.D. on 07/15/2020 3:25 PM Dictated By: ROSALIND RENO MD 1525 Transcribed By: FELIPE on 07/15/20 1525 COPY TO: SLAVA VEGA MD Serum or plasma creatine kinase measurement (enzymatic activity/volume) 2020-07-13 20:20:00 Test Item Creatine Kinase (test code = 2157-6) 85 30-200 [facility] or plasma creatine kinase MB measurement (mass/volume)2020-07-13 20:20:00* Test Item Value Reference Range Interpretation Comments Creatine Kinase MB (test code = 62766-0) 2.50 0-5.0 [facility] Hospital[facility] I measurement by highly sensitive enzyme [id number] 20:20:00* Test Item Value Reference Range Interpretation Comments Troponin I (test code = 13275-5) 0.274 0-0.300 [facility] glucose measurement by glucometer (mass/volume)2020-07-13 10:18:00* Test Item Value Reference Range Interpretation Comments Bedside Glucose (test code = 86849-1) 385 70-120 Meter ID: [id number] [facility]ann [facility] HospitalBlood leukocytes automated count (number/volume)2020-07-13 09:06:00* Test Item Value Reference Range Interpretation Comments White Blood Count (test code = 6690-2) 6.78 4.8-10.8 [facility] erythrocytes automated count (number/volume)2020-07-13 09:06:00* Test Item Value Reference Range Interpretation Comments Red Blood Count (test code = 789-8) 3.41 4.3-5.7 [facility] hemoglobin measurement (moles/volume)2020-07-13 09:06:00* Test Item Value Reference Range Interpretation Comments Hemoglobin (test code = 79003-6) 10.6 14.0-18.0 [facility] HospitalAutomated blood hematocrit (volume fraction)2020-07-13 09:06:00* Test Item Value Reference Range Interpretation Comments Hematocrit (test code = 4544-3) 32.2 38.2-49.6 [facility] HospitalAutomated erythrocyte mean corpuscular [id number] 09:06:00* Test Item Value Reference Range Interpretation Comments Mean Corpuscular Volume (test code = 787-2) 94.4 81-99 [facility] HospitalAutom[facility] erythrocyte mean corpuscular hemoglobin (mass per erythrocyte)2020-07-13 09:06:00* Test Item Value Reference Range Interpretation Comments Mean Corpuscular Hemoglobin (test code = 785-6) 31.1 28-32 [facility] Hospital[facility] erythrocyte mean corpuscular hemoglobin concentration measurement (mass/volume)2020-07-13 09:06:00* Test Item Value Reference Range Interpretation Comments Mean Corpuscular Hemoglobin Concent (test code = 786-4) 32.9 31-35 [facility] HospitalRDW [id number] 09:06:00* Test Item Value Reference Range Interpretation Comments Red Cell Distribution Width (test code = 78412-4) 14.6 11.7 -14.4 [facility] Hospital[facility] blood platelet count (count/volume)2020-07-13 09:06:00* Test Item Value Reference Range Interpretation Comments Platelet Count (test code = 777-3) 247 140-360 [facility] HospitalAutom[facility] blood segmented neutrophil count as percentage of total [id number] 09:06:00* Test Item Value Reference Range Interpretation Comments Neutrophils (%) (Auto) (test code = 96994-8) 58.2 38.7-80.0 [facility] HospitalAutomated blood lymphocyte count as percentage ot total lnwnhrebwu4780-51-53 09:06:00* Test Item Value Reference Range Interpretation Comments Lymphocytes (%) (Auto) (test code = 736-9) 28.3 18.0-39.1 [facility] HospitalAutomated blood monocyte count as percentage of total rdecguwsyq8607-28-00 09:06:00* Test Item Value Reference Range Interpretation Comments Monocytes (%) (Auto) (test code = 5905-5) 11.7 4.4-11.3 [facility] HospitalAutomated blood eosinophil count as percentage of total kwdzcdszoi4698-65-64 09:06:00* Test Item Value Reference Range Interpretation Comments Eosinophils (%) (Auto) (test code = 713-8) 1.6 0.0-6.0 [facility] HospitalAutomated blood basophil count as percentage of total jgonwdnnxy6476-47-31 09:06:00* Test Item Value Reference Range Interpretation Comments Basophils (%) (Auto) (test code = 706-2) 0.1 0.0-1.0 [facility] HospitalFluoroscopic procedure less than one hour ylbmcsjn2591-24-72 09:06:00* Test Item Value Reference Range Interpretation Comments IM GRANULOCYTES % (test code = IM GRANULOCYTES %) 0.1 0.0- 1.0 [facility] HospitalAutomated blood neutrophil count 2020-07-13 09:06:00* Test Item Value Reference Range Interpretation Comments Neutrophils # (Auto) (test code = 751-8) 3.9 2.1-6.9 [facility] HospitalBlood lymphocytes count (number/volume) 2020-07-13 09:06:00* Test Item Value Reference Range Interpretation Comments Lymphocytes # (Auto) (test code = 83635-8) 1.9 1.0-3.2 [facility] HospitalBlood monocytes automated count (number/volume)2020-07-13 09:06:00* Test Item Value Reference Range Interpretation Comments Monocytes # (Auto) (test code = 742-7) 0.8 0.2-0.8 [facility] HospitalAutomated blood eosinophil count 2020-07-13 09:06:00* Test Item Value Reference Range Interpretation Comments Eosinophils # (Auto) (test code = 711-2) 0.1 0.0-0.4 [facility] HospitalAutomated blood basophil count (count/volume)2020-07-13 09:06:00* Test Item Value Reference Range Interpretation Comments Basophils # (Auto) (test code = 704-7) 0.0 0.0-0.1 [facility] HospitalFluoroscopic procedure less than one hour yywnwwyc0527-34-73 09:06:00* Test Item Value Reference Range Interpretation Comments Absolute Immature Granulocyte (auto (david t code = Absolute Immature Granulocyte (auto) 0.01 0-0.1 [facility] or plasma sodium measurement (moles/volume)2020-07-13 09:06:00* Test Item Value Reference Range Interpretation Comments Sodium Level (test code = 2951-2) 139 136-145 [facility] Campuserum or plasma potassium measurement (moles/volume)2020-07-13 09:06:00* Test Item Value Reference Range Interpretation Comments Potassium Level (test code = 2823-3) 3.3 3.5-5.1 [facility]um or plasma chloride measurement (moles/volume)2020-07-13 09:06:00* Test Item Value Reference Range Interpretation Comments Chloride Level (test code = 2075-0) 103 98-107 [facility] Campuserum or plasma carbon dioxide, total measurement (moles/volume)2020-07-13 09:06:00* Test Item Value Reference Range Interpretation Comments Carbon Dioxide Level (test code = 2028-9) 22 22-29 [facility] Campuserum or plasma anion pdy3226-91-55 09:06:00* Test Item Value Reference Range Interpretation Comments Anion Gap (test code = 16567-9) 17.3 8-16 [facility]userum or plasma urea nitrogen measurement (mass/volume)2020-07-13 09:06:00* Test Item Value Reference Range Interpretation Comments Blood Urea Nitrogen (test code = 3094-0) 22 7-26 [facility]um or plasma creatinine measurement (mass/volume)2020-07-13 09:06:00* Test Item Value Reference Range Interpretation Comments Creatinine (test code = 2160-0) 1.66 0.72-1.25 [facility] Campuserum or plasma urea nitrogen/creatinine mass ucupr3455-39-68 09:06:00* Test Item Value Reference Range Interpretation Comments BUN/Creatinine Ratio (test code = 3097-3) 13 6-25 [facility] HospitalEstimated glomerular filtration rate (GFR) bikafnkcmqagh3089-20-69 09:06:00* Test Item Value Reference Range Interpretation Comments Estimat Glomerular Filtration Rate (test code = 248239625) 41 >60 Ranges were taken from the National Kidney Disease Education Program and the [facility] Kidney Foundation literature.Reference ranges:60 or greater: Hleioc15-54 ( for 3 consecutive months): Chronic kidney disease 15 or less: Kidney failureMemorial Hermann Pearland HospitalGlucose hajildxftva3706-94-95 09:06:00* Test Item Value Reference Range Interpretation Comments Glucose Level (test code = DHS9976) 336 74-118 [facility]um or plasma calcium measurement (mass/volume)2020-07-13 09:06:00* Test Item Value Reference Range Interpretation Comments Calcium Level (test code = 27865-7) 8.3 8.4-10.2 [facility]userum or plasma total bilirubin measurement (mass/volume)2020-07-13 09:06:00* Test Item Value Reference Range Interpretation Comments Total Bilirubin (test code = 1975-2) 0.8 0.2-1.2 [facility] HospitalFluoroscopic procedure less than one hour zvnagywq1971-86-07 09:06:00* Test Item Value Reference Range Interpretation Comments Aspartate Amino Transf (AST/SGOT) (test code = Aspartate Amino Transf (AST/SGOT)) 15 5-34 [facility] Campuserum or plasma alanine aminotransferase measurement (enzymatic activity/volume)2020-07-13 09:06:00* Test Item Value Reference Range Interpretation Comments Alanine Aminotransferase (ALT/SGPT) (test code = 1742-6) 23 0-55 [facility]userum or plasma protein measurement (mass/volume)2020-07-13 09:06:00* Test Item Value Reference Range Interpretation Comments Total Protein (test code = 2885-2) 6.0 6.5-8.1 [facility]userum or plasma albumin measurement (mass/volume)2020-07-13 09:06:00* Test Item Value Reference Range Interpretation Comments Albumin (test code = 1751-7) 3.4 3.5-5.0 [facility] HospitalPlasma globulin measurement (mass/volume) 2020-07-13 09:06:00* Test Item Value Reference Range Interpretation Comments Globulin (test code = 27897-2) 2.6 2.3-3.5 [facility]userum or plasma albumin/globulin mass iaddb8215-89-86 09:06:00* Test Item Value Reference Range Interpretation Comments Albumin/Globulin Ratio (test code = 1759-0) 1.3 0.8-2.0 [facility]userum or plasma alkaline phosphatase measurement (enzymatic activity/volume)2020-07-13 09:06:00* Test Item Value Reference Range Interpretation Comments Alkaline Phosphatase (test code = 6768-6) 120 40-150 [facility] Campuserum or plasma triglyceride measurement (mass/volume)2020-07-13 09:06:00* Test Item Value Reference Range Interpretation Comments Triglycerides Level (test code = 2571-8) 171 0-149 [facility] Campuserum or plasma cholesterol measurement (mass/volume)2020-07-13 09:06:00* Test Item Value Reference Range Interpretation Comments Cholesterol Level (test code = 2093-3) 170 0-199 Less than 200 mg/dL Low Dtuk781 - 239 mg/dL Borderline Ngoi785 m g/dl and greater High Risk [facility]userum or plasma cholesterol in LDL measurement (mass/volume) 2020-07-13 09:06:00* Test Item Value Reference Range Interpretation Comments LDL Cholesterol (test code = 2089-1) 101 60-130 [facility]userum or plasma cholesterol in HDL measurement (mass/volume)2020-07-13 09:06:00* Test Item Value Reference Range Interpretation Comments HDL Cholesterol (test code = 2085-9) 35 40-60 [facility]userum or plasma total cholesterol/cholesterol in HDL mass tqetn4248-89-60 09:06:00* Test Item Value Reference Range Interpretation Comments Cholesterol/HDL Ratio (test code = 9830-1) 4.9 3.9-4.7 [facility] HospitalCHEST SINGLE (PORTABLE)2020-07-13 01:28:00 [place] [address] Patient Name: ELYSSA FERNANDEZ MR #: [id number] : 1945 Age/Sex: 75/M Req #: [id number] Adm Physician: Ordered by: HADLEY GARCIA MD Report #: [id number] Location: ER Room/Bed: Procedure: [id number] DX/BETSY ST SINGLE (PORTABLE) Exam Date: 07/13/20 Exam Time: 14 REPORT STATUS: Signed EXAMI NATION: CHEST SINGLE (PORTABLE) INDICATION: Chest pain PEPE RISON: Chest x-ray 08/28/2015 FINDINGS: TUBES and LINES: No ne. LUNGS: Normal lung volumes. Lungs are clear. Prominent central pulmo nary vasculature. PLEURA: No pleural effusion or pneumothorax. HEAR T AND MEDIASTINUM: Cardiac size is mildly enlarged. Aortic calcifications . BONES AND SOFT TISSUES: No acute osseous lesion. Soft tissues are unr emarkable. Loop recorder. Sternotomy wires. UPPER ABDOMEN: No free air unde r the diaphragm. IMPRESSION: Mild cardiomegaly and pulmonary vasc ular congestion. Signed by: Damon Guadalupe DO on 07/13/2020 1:29 AM Dictated By: DAMON GUADALUPE DO 8 Transcribed By: FELIPE on 07/13/20128 COPY TO: HADLEY GARCIA MD Prothrombin time (PT) in platelet poor plasma by coagulation kpfzb7070-06-54 00:30:00* Test Item Value Reference Range Interpretation Comments Prothrombin Time (test code = 5902-2) 12.4 11.9-14.5 [facility] HospitalINR in Platelet poor plasma by Coagulation uxtnc1782-37-26 00:30:00* Test Item Value Reference Range Interpretation Comments Prothromb Time International Ratio (test code = 6301-6) 0.88 Oral Anticoagulant Therapy INR Values:1. Low Intensity Therapy 1.5 - 2.02 . Moderate Intensity Therapy 2.0 - 3.03. High Intensity Therapy(1) 2.5 - 3. 54. High Intensity Therapy(2) 3.0 - 4.05. Panic Value INR > 5.0 [facility] HospitalActivated partial thromboplastin time (aPTT) in platelet poor plasma by coagulation meuxi1954-36-69 00:30:00* Test Item Value Reference Range Interpretation Comments Activated Partial Thromboplast Time (test code = 73496-9) 23.2 23.8-35.5 [facility] Rot-dTul0187-36-10 00:30:00* Test Item Value Reference Range Interpretation Comments B-Type Natriuretic Peptide (test code = 09799-2) 41.4 0-100 [facility]um or plasma sodium measurement (moles/volume)2020-07-12 06:04:00* Test Item Value Reference Range Interpretation Comments Sodium Level (test code = 2951-2) 138 136-145 [facility]userum or plasma potassium measurement (moles/volume)2020-07-12 06:04:00* Test Item Value Reference Range Interpretation Comments Potassium Level (test code = 2823-3) 3.4 3.5-5.1 [facility]userum or plasma chloride measurement (moles/volume)2020-07-12 06:04:00* Test Item Value Reference Range Interpretation Comments Chloride Level (test code = 2075-0) 102 98-107 [facility] Campuserum or plasma carbon dioxide, total measurement (moles/volume)2020-07-12 06:04:00* Test Item Value Reference Range Interpretation Comments Carbon Dioxide Level (test code = 2028-9) 21 22-29 [facility]userum or plasma anion yls0394-89-74 06:04:00* Test Item Value Reference Range Interpretation Comments Anion Gap (test code = 69676-3) 18.4 8-16 [facility]userum or plasma urea nitrogen measurement (mass/volume)2020-07-12 06:04:00* Test Item Value Reference Range Interpretation Comments Blood Urea Nitrogen (test code = 3094-0) 19 7-26 [facility]userum or plasma creatinine measurement (mass/volume)2020-07-12 06:04:00* Test Item Value Reference Range Interpretation Comments Creatinine (test code = 2160-0) 1.34 0.72-1.25 [facility]userum or plasma urea nitrogen/creatinine mass wblqq0052-39-87 06:04:00* Test Item Value Reference Range Interpretation Comments BUN/Creatinine Ratio (test code = 3097-3) 14 6-25 [facility] HospitalEstimated glomerular filtration rate (GFR) umtztqzulchks7392-28-27 06:04:00* Test Item Value Reference Range Interpretation Comments Estimat Glomerular Filtration Rate (test code = 504809811) 52 >60 Ranges were taken from the National Kidney Disease Education Program and the [facility] Foundation literature.Reference ranges:60 or greater: Lzqjwa65-65 ( for 3 consecutive months): Chronic kidney disease 15 or less: Kidney failureMemorial Hermann Pearland HospitalGlucose fpnlodlvwbg3544-44-95 06:04:00* Test Item Value Reference Range Interpretation Comments Glucose Level (test code = ZXB0702) 276 74-118 [facility]userum or plasma calcium measurement (mass/volume)2020-07-12 06:04:00* Test Item Value Reference Range Interpretation Comments Calcium Level (test code = 27862-4) 8.6 8.4-10.2 [facility] Campuserum or plasma total bilirubin measurement (mass/volume)2020-07-12 06:04:00* Test Item Value Reference Range Interpretation Comments Total Bilirubin (test code = 1975-2) 1.0 0.2-1.2 [facility] HospitalFluoroscopic procedure less than one hour hdryhseh9892-50-12 06:04:00* Test Item Value Reference Range Interpretation Comments Aspartate Amino Transf (AST/SGOT) (test code = Aspartate Amino Transf (AST/SGOT)) 15 5-34 [facility] Campuserum or plasma alanine aminotransferase measurement (enzymatic activity/volume)2020-07-12 06:04:00* Test Item Value Reference Range Interpretation Comments Alanine Aminotransferase (ALT/SGPT) (test code = 1742-6) 27 0-55 [facility] Campuserum or plasma protein measurement (mass/volume)2020-07-12 06:04:00* Test Item Value Reference Range Interpretation Comments Total Protein (test code = 2885-2) 6.3 6.5-8.1 [facility] Campuserum or plasma albumin measurement (mass/volume)2020-07-12 06:04:00* Test Item Value Reference Range Interpretation Comments Albumin (test code = 1751-7) 3.6 3.5-5.0 [facility] HospitalPlasma globulin measurement (mass/volume) 2020-07-12 06:04:00* Test Item Value Reference Range Interpretation Comments Globulin (test code = 76524-9) 2.7 2.3-3.5 [facility] Camp[facility]um or plasma albumin/globulin mass eybkk5791-63-94 06:04:00* Test Item Value Reference Range Interpretation Comments Albumin/Globulin Ratio (test code = 1759-0) 1.3 0.8-2.0 [facility] Campuserum or plasma alkaline phosphatase measurement (enzymatic activity/volume)2020-07-12 06:04:00* Test Item Value Reference Range Interpretation Comments Alkaline Phosphatase (test code = 6768-6) 134 40-150 [facility] HospitalCapillary blood glucose measurement by glucometer (mass/volume)2020-07-11 15:33:00* Test Item Value Reference Range Interpretation Comments Bedside Glucose (test code = 86696-5) 300 70-120 Meter ID: [id number]. Luke's Health – The Woodlands HospitalFluoroscopic procedure less than one hour qudcwmlr5912-27-05 13:02:00* Test Item Value Reference Range Interpretation Comments Coronavirus (PCR) (test code = Coronavirus (PCR)) NOT DETECTED NOTD ETECTED [facility] [place] Aptima SARS-CoV-2 assay is a nucleic amplification test intended for the qualitative detection of RNA from SARS-CoV-2 from nasopharyngeal (SOFT MET[employer] HAND ENGRAVER) specimens. It is used under Emergency Use Authorization (EUA) by FDA.A positive result is indicative of the presence of SARS-CoV-2 RNA. Clinical correlation with patient history and other diagnostic information is necessary to determine patient infe ction status.A negative (Not Detected) result does not preclude SARS-CoV-2 infec tion. Clinical Correlation with patient history and other diagnostic information should be used in patient management decisions.Invalid: Unable to generate a va lid result on this specimen. Please submit a new specimen for reprat testing oc clinically indicated.Tesing performed by:[facility] [address] [place] [address] [id number], Hadley Sewell MD, PhD [facility] HospitalFluoroscopic procedure less than one hour dvpcbdru7367-71-36 13:02:00* Test Item Value Reference Range Interpretation Comments Coronavirus (PCR) (test code = Coronavirus (PCR)) NOT DETECTED NOTD ETECTED [facility] [place] [employer] SARS-CoV-2 assay is a nucleic amplification test intended for the qualitative detection of RNA from SARS-CoV-2 from nasopharyngeal (SOFT MET[employer] HAND ENGRAVER) specimens. It is used under Emergency Use Authorization (EUA) by FDA.A positive result is indicative of the presence of SARS-CoV-2 RNA. Clinical correlation with patient history and other diagnostic information is necessary to determine patient infe ction status.A negative (Not Detected) result does not preclude SARS-CoV-2 infec tion. Clinical Correlation with patient history and other diagnostic information should be used in patient management decisions.Invalid: Unable to generate a va lid result on this specimen. Please submit a new specimen for reprat testing oc clinically indicated.Tesing performed by:[facility] [address] [place] [address] [id number], Hadley Sewell MD, PhD [facility] HospitalBlwoodwind[facility] leukocytes automated count (number/volume)2020-07-06 12:24:00* Test Item Value Reference Range Interpretation Comments White Blood Count (test code = 6690-2) 6.33 4.8-10.8 [facility] HospitalBlwoodwinds [facility] campus erythrocytes automated count (number/volume)2020-07-06 12:24:00* Test Item Value Reference Range Interpretation Comments Red Blood Count (test code = 789-8) 4.34 4.3-5.7 [facility] HospitalBlood hemoglobin measurement (moles/volume)2020-07-06 12:24:00* Test Item Value Reference Range Interpretation Comments Hemoglobin (test code = 64616-0) 13.2 14.0-18.0 [facility] HospitalAutomated blood hematocrit (volume fraction)2020-07-06 12:24:00* Test Item Value Reference Range Interpretation Comments Hematocrit (test code = 4544-3) 39.6 38.2-49.6 [facility] HospitalAutomated erythrocyte mean corpuscular yafmhc4372-22-61 12:24:00* Test Item Value Reference Range Interpretation Comments Mean Corpuscular Volume (test code = 787-2) 91.2 81-99 [facility] HospitalAutomated erythrocyte mean corpuscular hemoglobin (mass per erythrocyte)2020-07-06 12:24:00* Test Item Value Reference Range Interpretation Comments Mean Corpuscular Hemoglobin (test code = 785-6) 30.4 28-32 [facility] HospitalAutomated erythrocyte mean corpuscular hemoglobin concentration measurement (mass/volume)2020-07-06 12:24:00* Test Item Value Reference Range Interpretation Comments Mean Corpuscular Hemoglobin Concent (test code = 786-4) 33.3 31-35 [facility] HospitalRDW WqvOi-Wzd7408-51-03 12:24:00* Test Item Value Reference Range Interpretation Comments Red Cell Distribution Width (test code = 14608-6) 13.7 11.7 -14.4 [facility] HospitalAutomated blood platelet count (count/volume)2020-07-06 12:24:00* Test Item Value Reference Range Interpretation Comments Platelet Count (test code = 777-3) 282 140-360 [facility] HospitalAutomated blood segmented neutrophil count as percentage of total pxrvrckloj9643-53-82 12:24:00* Test Item Value Reference Range Interpretation Comments Neutrophils (%) (Auto) (test code = 26999-4) 55.2 38.7-80.0 [facility] HospitalAutomated blood lymphocyte count as percentage ot total sjbivrokax3546-31-46 12:24:00* Test Item Value Reference Range Interpretation Comments Lymphocytes (%) (Auto) (test code = 736-9) 35.2 18.0-39.1 [facility] HospitalAutomated blood monocyte count as percentage of total nojtqvjbyl0530-52-48 12:24:00* Test Item Value Reference Range Interpretation Comments Monocytes (%) (Auto) (test code = 5905-5) 7.1 4.4-11.3 [facility] HospitalAutomated blood eosinophil count as percentage of total oxxpewwmbn2439-08-28 12:24:00* Test Item Value Reference Range Interpretation Comments Eosinophils (%) (Auto) (test code = 713-8) 1.9 0.0-6.0 [facility] HospitalAutomated blood basophil count as percentage of total xkoumrjbyt7926-27-63 12:24:00* Test Item Value Reference Range Interpretation Comments Basophils (%) (Auto) (test code = 706-2) 0.3 0.0-1.0 [facility] HospitalFluoroscopic procedure less than one hour vccedlkh7142-58-25 12:24:00* Test Item Value Reference Range Interpretation Comments IM GRANULOCYTES % (test code = IM GRANULOCYTES %) 0.3 0.0- 1.0 [facility] HospitalAutomated blood neutrophil count 2020-07-06 12:24:00* Test Item Value Reference Range Interpretation Comments Neutrophils # (Auto) (test code = 751-8) 3.5 2.1-6.9 [facility] HospitalBlwoodwind[facility] lymphocytes count (number/volume) 2020-07-06 12:24:00* Test Item Value Reference Range Interpretation Comments Lymphocytes # (Auto) (test code = 31952-7) 2.2 1.0-3.2 [facility] HospitalBlwoodwind[facility] monocytes automated count (number/volume)2020-07-06 12:24:00* Test Item Value Reference Range Interpretation Comments Monocytes # (Auto) (test code = 742-7) 0.5 0.2-0.8 [facility] HospitalAutomated blood eosinophil count 2020-07-06 12:24:00* Test Item Value Reference Range Interpretation Comments Eosinophils # (Auto) (test code = 711-2) 0.1 0.0-0.4 [facility] HospitalAutomated blood basophil count (count/volume)2020-07-06 12:24:00* Test Item Value Reference Range Interpretation Comments Basophils # (Auto) (test code = 704-7) 0.0 0.0-0.1 [facility] HospitalFluoroscopic procedure less than one hour gvtcyxub1900-28-92 12:24:00* Test Item Value Reference Range Interpretation Comments Absolute Immature Granulocyte (auto (david t code = Absolute Immature Granulocyte (auto) 0.02 0-0.1 [facility] ResourcesTROPONIN [id number] 13:38:00* Test Item Value Reference Range Interpretation Comments TROPONIN I (BEAKER) (test code = 397) [...] 700) 133 pg/mL 0-100 H BASIC METABOLIC [id number] 13:30:00* Test Item Value Reference Range Interpretation [...] INSUFFICIENT CLINICAL DATA TO CALCULATE ESTIMATED GFR. [id number] 13:30:00* Test Item Value Reference Range Interpretation Comments MAGNESIUM (BEAKER) (test code = 627) 2.0 mg/dL 1.5-3.0 CBC W/PLT COUNT & AUTO MZRIPPWVLWLP7425-29-94 13:11:00* Test Item Value Reference Range Interpretation [...] % 0-0 RAD, CHEST, 1 VIEW, NON ARRA6071-64-22 13:10:00Reason for exam:->DIZZINESSReason for exam:->SHORTNESS OF BREATHFINAL REPORT AP chest dated 07/04/2019 Comment: Heart is normal in size. Pulmonary vasculature is unremarkable. Lungs are clear. No pulmonary infiltrate or pleural effusion. Impression: No active cardiopulmonary disease. Signed: Iona Darlingeport Verified Date/Time: 07/04/2019 13:10:35 Reading Location: [facility] B1 C013Y CT Body Reading Room ULATION TIME [id number] 12:07:00* Test Item Value Reference Range Interpretation Comments COAGULATION TIME ACTIVATED (test code = ACT) 242 seconds 62.8-88.0 H COAGULATION TIME OQYJPAVJK7214-69-15 12:07:00* Test Item Value Reference Range Interpretation Comments COAGULATION TIME ACTIVATED (test code = ACT) 231 seconds 62.8-88.0 H COAGULATION TIME [id number] 12:07:00* Test Item Value Reference Range Interpretation Comments COAGULATION TIME ACTIVATED (test code = ACT) 216 seconds 62.8-88.0 H [id number] 10:24:00* Test Item Value Reference Range Interpretation Comments GLUBED (test code = GLUBED) 284 mg/dL 74-106 H Performed by certified scrap drop operator at [facility] [id number] 05:36:00* Test Item Value Reference Range Interpretation Comments GLUBED (test code = GLUBED) 221 mg/dL 74-106 H Performed by certified scrap drop operator at [facility] [id number] 05:35:00* Test Item Value Reference Range Interpretation Comments GLUBED (test code = GLUBED) 328 mg/dL 74-106 H Performed by certified scrap drop operator at [facility] [id number] 17:01:00* Test Item Value Reference Range Interpretation Comments GLUBED (test code = GLUBED) 266 mg/dL 74-106 H Performed by certified scrap drop operator at [facility] [id number] 12:38:00* Test Item Value Reference Range Interpretation Comments GLUBED (test code = GLUBED) 270 mg/dL 74-106 H Performed by certified scrap drop operator at [facility] BASIC METABOLIC [id number] 04:48:00* Test Item Value Reference Range Interpretation [...] code = CA) 8.8 mg/dL 8.5-10.1 N [id number] 04:28:00* Test Item Value Reference Range Interpretation Comments GLUBED (test code = GLUBED) 220 mg/dL 74-106 H Performed by certified scrap drop operator at [facility] CBC W/AUTO [id number] 04:08:00* Test Item Value Reference Range Interpretation [...] code = NRBC#) 0.00 K/mm3 0.0-0.1 N [id number] 21:37:00* Test Item Value Reference Range Interpretation Comments GLUBED (test code = GLUBED) 241 mg/dL 74-106 H Performed by certified scrap drop operator at [facility] [id number] 19:15:00* Test Item Value Reference Range Interpretation Comments GLUBED (test code = GLUBED) 260 mg/dL 74-106 H Performed by certified scrap drop operator at [facility] [id number] 13:09:00* Test Item Value Reference Range Interpretation Comments GLUBED (test code = GLUBED) 229 mg/dL 74-106 H Performed by certified scrap drop operator at [facility] BASIC METABOLIC [id number] 03:50:00* Test Item Value Reference Range Interpretation [...] CA) 8.6 mg/dL 8.5-10.1 N BASIC METABOLIC [id number] 03:46:00* Test Item Value Reference Range Interpretation [...] code = CA) mg/dL 8.5-10.1 CBC W/AUTO [id number] 03:43:00* Test Item Value Reference Range Interpretation [...] code = NRBC#) 0.00 K/mm3 0.0-0.1 N [id number] 00:01:00* Test Item Value Reference Range Interpretation Comments GLUBED (test code = GLUBED) 368 mg/dL 74-106 H Performed by certified scrap drop operator at [facility] [id number] 16:12:00* Test Item Value Reference Range Interpretation Comments GLUBED (test code = GLUBED) 318 mg/dL 74-106 H Performed by certified scrap drop operator at [facility] [id number] 13:12:00* Test Item Value Reference Range Interpretation Comments GLUBED (test code = GLUBED) 307 mg/dL 74-106 H Performed by certified scrap drop operator at [facility] [id number] 08:33:00* Test Item Value Reference Range Interpretation Comments GLUBED (test code = GLUBED) 260 mg/dL 74-106 H Performed by certified scrap drop operator at [facility] [id number] 03:03:00* Test Item Value Reference Range Interpretation Comments TROPONIN-I (test code = TROPI) 1.370 ng/mL 0-0.045 HH RESULT VERIFIED BY REPEAT ANALYSIS COMMENTS TO HOOP EXPANDER: COLLECT 3 HOURS AFTER PREVIOUS SAMPLEBASIC METABOLIC [id number] 02:43:00* Test Item Value Reference Range Interpretation [...] code = CA) 8.4 mg/dL 8.5-10.1 L [id number] 02:43:00* Test Item Value Reference Range Interpretation Comments MAGNESIUM (test code = MAG) 2.1 mg/dL 1.8-2.4 N [id number] 01:38:00* Test Item Value Reference Range Interpretation Comments GLUBED (test code = GLUBED) 354 mg/dL 74-106 H Performed by certified scrap drop operator at [facility] [id number] 23:04:00* Test Item Value Reference Range Interpretation Comments TROPONIN-I (test code = TROPI) 0.679 ng/mL 0-0.045 HH RESULT VERIFIED BY REPEAT ANALYSIS COMMENTS TO HOOP EXPANDER: COLLECT 3 HOURS AFTER PREVIOUS [id number] 22:45:00* Test Item Value Reference Range Interpretation [...] RELATED TO RISK LEVELS ASRECOMMENDED BY THE DANIELA. HEART, LUNG, AND BLOOD INST. HDL CHOLESTEROL (test code = HDL) 36 mg/dL 40-60 L LIPOPROTEIN LDL (test code = LDL) 100 mg/dL 100-129 N Reference Interval: mg/dL mmol/L Optimal <100 <2.6Near/above optimal 100-129 2.6- 3.3Borderline High 130-159 3.4-4.1High 160-189 4.1-4.9Very High >=190 >=4.9========= This LDL result is a direct measurement.========= BASIC METABOLIC [id number] 17:49:00* Test Item Value Reference Range Interpretation [...] code = CA) 9.0 mg/dL 8.5-10.1 N [id number] 17:49:00* Test Item Value Reference Range Interpretation Comments TROPONIN-I (test code = TROPI) 0.115 ng/mL 0-0.045 Results called to [id number] by 03/06/19 1749Critical results verified and read back by Nurse? Y B-TYPE NATRIURETIC [id number] 17:37:00* Test Item Value Reference Range Interpretation Comments B-TYPE NATRIURETIC PEPTIDE (test code = BNP) 74.26 pgram/mL 0-100 N - XR CHEST 1 [id number] 17:37:00 FAX: TOI FRIED MD [place]: St: REG Name: ELYSSA HOPKINS [facility] : [birth year] Age/S: 73/M [address] [facility] Unit #: [id number] Loc: [place] [address] Phys: TOI FRIED MD Acct: [id number] Dis Date: Status: REG ER PHONE #: [phone] Exam Date: 03/06/2019 1710 FAX #: [phone] Reason: CHEST PAIN EXAMS: CPT CODE: [id number] XR CHEST 1 V 42371 HISTORY: CHEST PAIN TECHNIQUE: AP chest x-ray COMPARISON: 03/22/18 FINDIN GS: No airspace consolidation or pleural effusion. Cardiomegaly. Atherosclerotic vascular calcification of the thoracic aorta. Sternot tanya wires. Cervicothoracic spondylosis. IMPRESSION: No radiographic evidence of acute cardiopulmonary process. No sign ificant interval change. at 1736 Reported and signed by: Shante Dumont CC: TOI FRIED MD Technologist: RT VIANNEY(R) Trnscrd Date/Time/By: 03/06/2019 (1738) : By: [email or web address] Orig Print D/T: S: 0 03/06/2019 (9281) PAGE 1 Signed Re port BASIC METABOLIC [id number] 17:11:00* Test Item Value Reference Range Interpretation [...] CALCIUM (test code = CA) mg/dL 8.5-10.1 [id number] 17:11:00* Test Item Value Reference Range Interpretation Comments TROPONIN-I (test code = TROPI) ng/mL 0-0.045 CBC W/O [id number] 16:53:00* Test Item Value Reference Range Interpretation [...] MPV) 9.4 fL 6.7-11.0 N CBC W/O [id number] 16:52:00* Test Item Value Reference Range Interpretation [...]
[2020-07-15 15:55] LABS: ALBUMIN 3.3 g/dL (3.5-5.0); ALBUMIN/GLOBULIN RATIO 1.3 (0.8-2.0); ANION GAP 19.1 mmol/L (8-16); CALCIUM 8.4 mg/dL (8.4-10.2); CREATININE, SERUM 1.38 mg/dL (0.72-1.25); POTASSIUM 3.1 mmol/L (3.5-5.1)
--- NOTE | 2020-07-15 17:29 | Emergency Department Note ---
History of Present Illnes History of Present Illness Chief Complaint: General Medicine Complaints History of Present Illness This is a 75 year old male that had a cardiac catheterization and 2 stents placed last week here with an episode of near syncope. Patient states that he had been getting up and walking back from the restroom he was at rest when he started getting very lightheaded and felt like he was going to "black out". Patient otherwise is here feeling generalized weakness, not complaining of pain anywhere. 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 Historian: Patient Arrival Mode: [facility] EMS Treatment SENIOR DB2 SYSTEMS PROGRAMMER: IV, O2, EKG, See EMS Report Additional Treatment SENIOR DB2 SYSTEMS PROGRAMMER: 18g left ac Location: difusse Radiation: Reports non-radiation Severity: moderate Onset quality: gradual Timing of current episode: constant Progression: resolved Chronicity: new Context: Reports other (recent hospitalization ) Relieving factors: none Exacerbating factors: none Associated symptoms: Denies chest pain, Denies fever/chills, Denies shortness of breath, Denies weakness (SLAVA VEGA MD) Historian: Patient (ALICIA LIU DO) Past Medical/Family History Physician Review I have reviewed the patient's past medical and family history. Any updates have been documented here. (SLAVA VEGA MD) Past Medical History Recent Fever: No Clinical Suspicion of Infectio: No New/Unexplained Change in Ment: No Past Medical History: Hypertension, Diabetes, [place], CAD Other Medical History: SLEEP APNEA Past Surgical History: PCI Other Surgery: UMBLICAL HERNIA,CARDIAC STENT 82 , (SLAVA VEGA MD) Recent Fever: No Clinical Suspicion of Infectio: No New/Unexplained Change in Ment: No Past Medical History: Hypertension, CAD (ALICIA LIU DO) Social History Smoking Cessation: Never Smoker Alcohol Use: None Any Illegal Drug Use: No (SLAVA VEGA MD) Smoking Cessation: Never Smoker Alcohol Use: None Any Illegal Drug Use: No (ALICIA LIU DO) Other Any Pre-Existing Lines (PICC,: No (SLAVA VEGA MD) Review of Systems Review of Systems Constitutional: Reports no symptoms EENTM: Reports no symptoms Cardiovascular: Reports as per HPI Respiratory: Reports no symptoms Gastrointestinal: Reports no symptoms Genitourinary: Reports no symptoms Musculoskeletal: Reports no symptoms Integumentary: Reports no symptoms Neurological: Reports no symptoms Psychological: Reports no symptoms Endocrine: Reports no symptoms Hematological/Lymphatic: Reports no symptoms (SLAVA VEGA MD) Physical Exam Related Data Allergies: Coded Allergies: furosemide (Verified Allergy, Unknown, 07/06/20) Triage Vital Signs Vital Signs Date Time Temp Pulse Resp B/P (MAP) Pulse Ox O2 Delivery O2 Flow Rate FiO2 07/15/20 14:34 98.5 70 20 138/70 93 Room Air 07/15/20 15:33 2.0 Vital signs reviewed: Yes (SLAVA VEGA MD) Physical Exam CONSTITUTIONAL Constitutional: Present well-developed, Present well-nourished HENT HENT: Present normocephalic, Present atraumatic, Present oropharynx clear/moist, Present nose normal HENT L/R: Present left ext ear normal, Present right ext ear normal EYES Eyes: Reports PERRL, Reports conjunctivae normal NECK Neck: Present ROM normal PULMONARY Pulmonary: Present effort normal, Present breath sounds normal CARDIOVASCULAR Cardiovascular: Present regular rhythm, Present heart sounds normal, Present capillary refill normal, Present normal rate GASTROINTESTINAL Abdominal: Present soft, Present nontender, Present bowel sounds normal GENITOURINARY Genitourinary: Present exam deferred SKIN Skin: Present warm, Present dry, Present erythema, Present other (patients with bilateral lymphangitis skin changes, likely venous insufficiency.) MUSCULOSKELETAL Musculoskeletal: Present ROM normal, Present swelling (patient with bilateral lower extremity with lymphangitis.) NEUROLOGICAL Neurological: Present alert, Present oriented x 3, Present no gross motor or sensory deficits PSYCHOLOGICAL Psychological: Present mood/affect normal, Present judgement normal (SLAVA VEGA MD) Results Laboratory Result Diagram: 07/15/20 1522 07/15/20 1522 Laboratory Laboratory Tests Test 07/15/20 15:22 White Blood Count 7.82 x10e3/uL (4.8-10.8) Red Blood Count 3.44 x10e6/uL (4.3-5.7) Hemoglobin 10.5 g/dL (14.0-18.0) Hematocrit 32.1 % (38.2-49.6) Mean Corpuscular Volume 93.3 fL (81-99) Mean Corpuscular Hemoglobin 30.5 pg (28-32) Mean Corpuscular Hemoglobin Concent 32.7 g/dL (31-35) Red Cell Distribution Width 14.6 % (11.7-14.4) Platelet Count 267 x10e3/uL (140-360) Neutrophils (%) (Auto) 63.5 % (38.7-80.0) Lymphocytes (%) (Auto) 24.6 % (18.0-39.1) Monocytes (%) (Auto) 9.1 % (4.4-11.3) Eosinophils (%) (Auto) 2.2 % (0.0-6.0) Basophils (%) (Auto) 0.3 % (0.0-1.0) Neutrophils # (Auto) 5.0 (2.1-6.9) Lymphocytes # (Auto) 1.9 (1.0-3.2) Monocytes # (Auto) 0.7 (0.2-0.8) Eosinophils # (Auto) 0.2 (0.0-0.4) Basophils # (Auto) 0.0 (0.0-0.1) Absolute Immature Granulocyte (auto 0.02 x10e3/uL (0-0.1) Prothrombin Time 13.0 seconds (11.9-14.5) Prothromb Time International Ratio 0.94 Activated Partial Thromboplast Time 22.7 seconds (23.8-35.5) D-Dimer Quantitative (PE/DVT) 0.68 ug/mLFEU (0.00-0.45) Sodium Level 142 mmol/L (136-145) Potassium Level 3.1 mmol/L (3.5-5.1) Chloride Level 103 mmol/L (98-107) Carbon Dioxide Level 23 mmol/L (22-29) Anion Gap 19.1 mmol/L (8-16) Blood Urea Nitrogen 19 mg/dL (7-26) Creatinine 1.38 mg/dL (0.72-1.25) Estimat Glomerular Filtration Rate 50 ML/MIN (60-) BUN/Creatinine Ratio 14 (6-25) Glucose Level 157 mg/dL (74-118) Calcium Level 8.4 mg/dL (8.4-10.2) Total Bilirubin 1.1 mg/dL (0.2-1.2) Aspartate Amino Transf (AST/SGOT) 16 IU/L (5-34) Alanine Aminotransferase (ALT/SGPT) 23 IU/L (0-55) Alkaline Phosphatase 120 IU/L (40-150) Creatine Kinase 126 IU/L (30-200) Creatine Kinase MB 3.00 ng/mL (0-5.0) Troponin I 0.237 ng/mL (0-0.300) Total Protein 5.9 g/dL (6.5-8.1) Albumin 3.3 g/dL (3.5-5.0) Globulin 2.6 g/dL (2.3-3.5) Albumin/Globulin Ratio 1.3 (0.8-2.0) (SLAVA VEGA MD) Imaging Imaging results reviewed: Yes Impressions [place] [id number] [place] [address] Patient Name: ELYSSA SIMPSON MR #: [id number] : 1945 Age/Sex: 75/M Req #: [id number] Adm Physician: SLAVA HASSAN MD Ordered by: ALICIA LIU DO Report #: [id number] Location: [facility] Room/Bed: [place] [address] Procedure: [id number] CT/CT CHEST W Exam Date: 07/15/20 Exam Time: 1929 REPORT STATUS: Signed EXAM: CT Chest WITH contrast (PE Protocol) INDICATION: Dizziness COMPARISON: Chest x-ray 07/13/2020 TECHNIQUE: Chest was scanned utilizing a multidetector helical scanner from the lung apex through the level of the diaphragm after administration of IV contrast. Thin section reconstructions were obtained with special concentration on the pulmonary arteries. Coronal and sagittal reformations were obtained. Pulmonary embolism protocol was performed. IV CONTRAST: 100 mL of Isovue 370 COMPLICATIONS: None RADIATION DOSE: Total DLP: 684 mGy*cm Estimated effective dose: (DLP x 0.014 x size factor) mSv CTDIvol has been reviewed. It is below the limits set by the Radiation Protocol Committee (RPC). Dose modulation, iterative reconstruction, and/or weight based adjustment of the mA/kV was utilized to reduce the radiation dose to as low as reasonably achievable. FINDINGS: LINES/ TUBES: None. LUNGS AND AIRWAYS: No pulmonary arterial filling defects. Mild prominence of pulmonary vascular. Subtle interlobular septal and intrapulmonary fissure thickening. No consolidations. Airways are normal. PLEURA: The pleural spaces are clear. HEART AND MEDIASTINUM: The thyroid gland is normal. No mediastinal, hilar or axillary lymphadenopathy. Mild and central dilation. Surgical changes of coronary bypass graft. Calcific locations of the aorta and major branches including the coronary arteries. Mild main pulmonary artery diameter 3.1 cm, upper limit of normal. UPPER ABDOMEN: A 6.3 cm left renal superior pole simple appearing cyst. subtle benign-appearing adrenal nodularity. BONES: The visualized bony thorax is within normal limits. Chronic appearing mild T12 vertebral body compression fracture. Degenerative change. Sternotomy wires. SOFT TISSUES: Unremarkable. IMPRESSION: No pulmonary emboli. Mild left atrial dilation and pulmonary vascular congestion. Subtle pulmonary interstitial edema. Chronic appearing mild T12 vertebral body compression fracture. Signed by: Damon Osman DO on 07/15/2020 8:26 PM Dictated By: DAMON OSMAN DO 25 Transcribed By: FELIPE on 07/15/202025 COPY TO: ALICIA LIU DO~ (ALICIA LIU DO) Procedures 12 Lead ECG Interpretation ECG Interpretation : Additional Comments EKG interpreted by me shows normal sinus rhythm, normal axis, normal intervals aside from a NV that is prolonged at 202, first-degree AV block, no acute ST changes. (SLAVA VEGA MD) Assessment & Plan Medical Decision Making MDM Since a 75-year-old man that recently had cardiac catheterization with 2 stents. Patient with a near syncopal spell while at rest. Will discuss with cardiology but likely needs admission for this. (SLAVA VEGA MD) MDM Diff Dx : ACS, PE, PTX, PNA, sepsis, TIA, CVA. Case d/w with Dr Adam Ferrer (ALICIA LIU DO) Assessment & Plan Final Impression: (1) Syncope (SLAVA VEGA MD) Final Impression: (1) Syncope (2) Renal insufficiency (ALICIA LIU DO) Depart Disposition: ADMITTED Last Vital Signs Date Time Temp Pulse Resp B/P (MAP) Pulse Ox O2 Delivery O2 Flow Rate FiO2 07/15/20 15:33 97.8 68 18 135/69 99 Nasal Cannula 2.0 (SLAVA VEGA MD) Home Meds Reported Medications [Tylenol Arthritis] No Conflict Check, 220 MG PO PRN PRN for MODERATE PAIN (4- 6) 07/06/20 Valacyclovir Hcl (VALACYCLOVIR) 500 Mg Tablet, 500 MG PO DAILY, #30 TAB 07/06/20 [Refresh Advance] No Conflict Check, 1 DROP OP UD 07/06/20 Beta Carotene (PRESERVISION TABLET) 1 Each Tab, 1 TAB PO BID 07/06/20 [Folic Acid] No Conflict Check, 1600 MG PO DAILY 07/06/20 Fish Oil/Dha/Epa (FISH OIL 1,200 MG FISH OIL) 1 Each Capsule, 1 CAP PO BID 07/06/20 Azelastine HCl (Azelastine HCl) 205.5 Mcg/0.137 Ml [place].pump, 1 APPLIC TOP DAILY 07/06/20 Acetaminophen (ACETAMINOPHEN) 650 Mg Tablet, 650 MG PO Q8H PRN for MODERATE PAIN (4-6) 07/06/20 Terbinafine Hcl (TERBINAFINE HCL) 250 Mg Tablet, 250 MG PO DAILY, #30 TAB 09/04/18 Pentoxifylline (PENTOXIFYLLINE) 400 Mg Tablet.er, 400 MG PO TID, #30 TAB 09/04/18 [flurourcil 5%cream] No Conflict Check, 1 APPLIC TP DAILY 09/04/18 Desonide (DESONIDE) 59 Ml Lotion, 1 APPLIC TOP TID 09/04/18 Aspirin (ASPIR 81) 81 Mg Tablet.dr, 81 MG PO DAILY 09/04/18 Insulin Aspart (NOVOLOG) 100 Unit/1 Ml Cartridge, 26 UNITS SC TIDWM 09/04/18 Insulin Detemir (LEVEMIR) 100 Unit/1 Ml Vial, 38-44 UNITS SC BID 09/04/18 Potassium Chloride (POTASSIUM CHLORIDE) 10 Meq Tab.er.prt, 10 MEQ PO BID, TAB 09/04/18 Lisinopril (LISINOPRIL) 10 Mg Tablet, 40 MG PO DAILY, #30 TAB 09/04/18 Isosorbide Mononitrate (ISOSORBIDE MONONITRATE ER) 30 Mg Tab.er.24h, 30 MG PO DAILY, #30 TAB 09/04/18 Clopidogrel Bisulfate (CLOPIDOGREL) 75 Mg Tablet, 75 MG PO DAILY, #30 TAB 09/04/18 Chlorthalidone (CHLORTHALIDONE) 50 Mg Tablet, 50 MG PO DAILY 09/04/18 Atorvastatin Calcium (ATORVASTATIN CALCIUM) 20 Mg Tablet, 40 MG PO HS, #30 TAB 09/04/18 Amlodipine Besylate (AMLODIPINE BESYLATE) 5 Mg Tablet, 5 MG PO BID, #30 TAB 09/04/18 Mupirocin (MUPIROCIN) 22 Gm Oint...g., 1 APPLIC TOP TID PRN for BREAK OUT, EACH 09/04/18 Mometasone Furoate (ELOCON) 15 Gm Oint...g., 1 APPLIC TOP DAILY PRN for BREAK OUT 09/04/18 Medications in the ED Aspirin 81 mg PRN ONCE PO Last administered on 07/15/20at 15:31; Admin Dose 81 MG; Start 07/15/20 at 14:45; Stop 07/15/20 at 14:46; Status DC (SLAVA VEGA MD) SLAVA VEGA MD Jul 15, 2020 17:29 ALICIA LIU DO Jul 15, 2020 20:38
[2020-07-15] MEDS ORDERED: ONDANSETRON HCL INJ 2MG/ML 2ML 2 MG/ML VIAL IV PRN (18:15)
--- OUTSIDE RECORDS SUMMARY | 2020-07-15 18:23 | XMS REPORT | Clinical Summary ---
Author Author [facility] Organization [facility] Address Unknown Phone Unavailable Care Team Providers Care Line Builder Name Role Phone Clem Coffey MD PCP [...] Benign essential hypertension 05/23/2017 Coronary arteriosclerosis in [place] artery 7 Gastroesophageal reflux disease without esophagitis [...] HUMANA xxxxxxxxx 2017-P MEDICARE resent PPO/PFFS/E [facility] Advance Directives For more information, please contact: [phone] Patient Vb Net Developer Explanation Type Date Recorded Advance Directives, 09/27/2018 11:28 AM Living Will and Medical Power of Acetylene Cutter
--- OUTSIDE RECORDS SUMMARY | 2020-07-15 18:23 | XMS REPORT | Clinical Summary ---
Author Author [facility] Address Unknown Phone Unavailable Care Team Providers Care Hydramatic Mechanic Name Role Phone Pcp, No PCP Unavailable [...] Group HUMANA - MEDICARE MGD HUMANA xxxxxxxxx [facility] MEDICARE Contracted ADV
--- OUTSIDE RECORDS SUMMARY | 2020-07-15 18:24 | XMS REPORT | Continuity of Care Document ---
Author Author [facility] t Organization [facility] Address [address] [place] [address] Phone Unavailable Care Team Providers Care Criminal Records Technician Name Role Phone NONSTAFF PCP Unavailable Mack VEGA Attphys Unavailable Kash GARCIA Attphys Unavailable TRENTON AMANDA Attphys Unavailable Payers Payer Name Policy Type Policy Number Effective Date Expiration Date [employer] Medicare Replacement [id number] 2012 00:00:00 [facility] Problems Condition Name Condition Details Condition Category Status Onset Date Resolution Date Last Treatment Date Treating Clinician Comments Source Hyperglycemia due to type 2 diabetes mellitus Hypergly cemia Due to Type 2 Diabetes Mellitus Problem Active 2019-12-21 00:00:00 [facility] Syncope Syncope Disease Active 2018-09-27 00:00:00 Dillan Winters Body mass index 40+ - severely obese Body Mass Index 40+ - S everely Obese Problem Active 2017-05-23 00:00:00 [facility] Diabetes type 2, uncontrolled Diabetes type 2, uncontrolled Disease Active 2017-05-23 00:00:00 Dillan Winters Benign essential hypertension Benign essential hypertension Disease Active 2017-05-23 00:00:00 Dillan Winters Coronary arteriosclerosis in [place] artery Coronary ar teriosclerosis in [place] artery Disease Active 2017-05-23 00:00:00 Alejo Winters Gastroesophageal reflux disease without esophagitis Ga stroesophageal reflux disease without esophagitis Disease Active 2017-05-23 00:00:00 Dillan Winters Hypercholesterolemia Hypercholesterolemia Disease Active 00:00:00 Dillan Winters Chest pain Problem Active [facility] Allergies, Adverse Reactions, Alerts Allergy Name Allergy Type Status Severity Reaction(s) Onset Date Inacti ve Date Treating Clinician Comments Source Furosemide Allergy to substance Active 2020-07-06 00:00:00 [facility] Furosemide Propensity to adverse reactions Active 1 00:00:00 [facility] furosemide DA Active SV 2019-03-06 00:00:00 [facility] Furosemide Propensity to adverse reactions to drug Active 2018-09-27 00:00:00 Blisters Dillan pelayo No Known Allergies DA Active U 2014-03-08 00:00:00 [facility] Lasix Allergy to substance Active Rash [facility] Social History Social Habit Start Date Stop Date Quantity Comments Source History SDOH Alcohol Std Drinks Dillan Winters History SDOH Alcohol Binge Dillan Winters Sex Assigned At Kylie graham Mandaen Alcohol intake 2018-09-27 00:00:00 2018-09-27 00:00:00 Current [...] mg by mouth every morning. Scooter ca Mandaen clopidogrel (PLAVIX) 75 mg tablet 2018-09-29 16:26:25 [...] unit/mL injection 2018-09-29 16:26: 25 Yes 26U Q.[id number] Inject 26 Units under the sk in [...] ophthalmic solution 2018-09-29 16:26: 25 Yes 2[drp] Q.[id number] Administer 2 drops to both e yes 3 (three) times a day. Dillan Winters pentoxifylline (TRENTal) 400 mg CR tablet 2018-09-29 16:26:25 Yes 400mg Q.[id number] Take 400 mg by mouth 3 (three) times a day with meals. Dillan Winters terbinafine HCl (LamiSIL) 250 mg tablet 2018-09-29 16:26:25 Yes 250mg QD Take 250 mg by mouth every morning. Dillan Winters mometasone (ELOCON) 0.1 % cream 2018-09-29 16:26:25 Yes 1{application} QD Apply 1 application topically daily. Dillan Winters mupirocin (BACTROBAN) 2 % ointment 2018-09-29 16:26:25 Y es 1{application} Q.[id number] Apply 1 application topicall y 3 (three) [...] mg 2 every 8 hours as needed [facility] amlodipine 5 mg tablet Take 1 tablet twice a day by or al route. amlodipine 5 mg tablet Take 1 tablet twice a day by oral route. No amlodipine 5 mg tablet Take 1 tablet twice a day by oral route. [facility] atorvastatin 40 mg tablet TAKE ONE TABLET BY MOUTH MISAEL STEFANO atorvastatin 40 mg tablet TAKE ONE TABLET BY MOUTH DAILY No atorvastatin 40 mg tablet TAKE ONE TABLET BY MOUTH DAILY [facility] BD Ultra-Fine Mini Pen Needle 31 gauge x 3/16" TEST BL OOD SUGAR DAILY BD Ultra- Fine Mini Pen Needle 31 gauge x 3/16" TEST BLOOD SUGAR DAILY No BD Ultra-Fine Mini Pen Needle 31 gauge x 316" TEST BLOOD SUGAR DAILY [facility] chlorthalidone 50 mg tablet TAKE ONE TABLET BY MOUTH D AILY chlorthalidone 50 mg tablet TAKE ONE TABLET BY MOUTH DAILY No chlorthalidone 50 mg tablet TAKE ONE TABLET BY MOUTH DAILY [facility] clopidogrel 75 mg tablet TAKE ONE TABLET BY MOUTH GLENDY Y clopidogrel 75 mg tablet TAKE ONE TABLET BY MOUTH DAILY No clopidogrel 75 mg tablet TAKE ONE TABLET BY MOUTH DAILY [facility] desonide 0.05 % topical cream [...] BY TOPICAL ROUTE 2 TIMES PER DAY [facility] Fish Oil 1200 mg twice a day Fish Oil 1200 mg twice a day N o Fish Oil 1200 mg twice a day [facility] folic acid 1600 mg TAKE ONE TABLET BY MOUTH DAILY foli c acid 1600 mg TAKE ONE TABLET BY MOUTH DAILY No fo lic acid 1600 mg TAKE ONE TABLET BY MOUTH DAILY [facility] is[facility] mononitrate ER 30 mg tablet,extended releas e 24 hr 1 daily isosorbide mononitrate ER 30 mg tablet,extended release 24 hr 1 daily No isosorbide mononitrate ER 30 mg tablet,extended release 24 hr 1 daily [facility] Levemir FlexTouch U-100 Insulin 100 unit/mL (3 mL) sub cutaneous pen Levemir FlexTouch U-100 Insulin 100 unit/mL (3 mL) subcutaneous pen No Levemir FlexTouch U-100 Insulin 100 unit/mL (3 mL) subcutaneous pen [facility] lisinopril 40 mg tablet TAKE ONE TABLET BY MOUTH DAILY lisinopril 40 mg tablet TAKE ONE TABLET BY MOUTH DAILY No lisinopril 40 mg tablet TAKE ONE TABLET BY MOUTH DAILY [facility] Longs Adult Low Strength ASA 81 mg table t,delayed release Take 1 tablet every day by oral route. Longs Adult Low Strength ASA 81 mg table t,delayed release Take 1 tablet every day by oral route. No 1 Q1D Longs Adult Low Strength ASA 81 mg tablet,delayed release Take 1 tablet every day by oral route. [facility] metoprolol tartrate 25 mg tablet 0.5 tablet twice a da y metoprolol tartrate 25 mg tablet 0.5 tablet twice a day No metoprolol tartrate 25 mg tablet 0.5 tablet twice a day [facility] ractice Microlet Lancet 3 TIMES A DAY Microlet Lancet 3 TIMES A DAY No Microlet Lancet [address] [facility] mometasone furoate (bulk) 0.10 % apply thin layer mome tasone furoate (bulk) 0.10 % apply thin layer No mome tasone furoate (bulk) 0.10 % apply thin layer [facility] ice mupirocin 2 % topical ointment [...] BY TOPICAL ROUTE [address] [facility] Novolog Flexpen U-100 Insulin aspart 100 unit/mL (3 mL) subcutaneous 26 units per meal size Novolog Flexpen U-100 Insulin aspart 100 unit/mL (3 mL) subcutaneous 26 units per meal size No Novolog Flexpen U-100 Insulin aspart 100 unit/mL (3 mL) subcutaneous 26 units per meal size [facility] OneTouch Verio test strips TEST BLOOD SUGAR DAILY OneT ouch Verio test strips TEST BLOOD SUGAR DAILY No O neTouch Verio test strips TEST BLOOD SUGAR DAILY [facility] ice pen needle, diabetic 31 gauge x 1/4" pen needle, diabetic 31 gauge x 1/4" No pen needle, diabetic 31 gauge x 1/4" [facility] pentoxifylline ER 400 mg tablet,extended release Take 1 tablet 3 times a day by oral route. pentoxifylline ER 400 mg tablet,extended release Take 1 tablet 3 times a day by oral route. No pentoxifylline ER 400 mg tablet,extended release Take 1 tablet 3 times a day by oral route. [facility] potassium chloride ER 10 mEq tablet,exte nded release TAKE ONE TABLET BY TWICE A DAY potassium chloride ER 10 mEq tablet,exte nded release TAKE ONE TABLET BY TWICE A DAY No potassium ch loride ER 10 mEq tablet,extended release TAKE ONE TABLET BY TWICE A DAY [facility] PreserVision AREDS 1 twice a day PreserVision AREDS 1 twice a day No PreserVision AREDS 1 twice a day [facility] sulfacetamide sodium (acne) 10 % lotion (suspension) t wice a day sulfacetamide sodium (acne) 10 % lotion (suspension) twice a day No sulfacetamide sodium (acne) 10 % lotion (suspension) twice a day [facility] Tears Refreshed eye drops 2 drops three times a day Te ars Refreshed eye drops 2 drops three times a day No Tears Refreshed eye drops 2 drops three times a day [facility] terb[facility]fine HCl 250 mg tablet QD terbinafine HCl 250 mg tablet QD No terbinafine HCl 250 mg tablet QD [facility] Acetaminophen Acetaminophen Yes 650 Every 8 Hours as needed for Moderate Pain (4-6) [facility] Amlodipine Besylate Amlodipine Besylate Yes 5 Twice A Day [facility] Aspirin (Aspir 81) 81 Mg TABLET. Aspirin (Aspir 81) 81 Mg TABLET. Yes 81 Daily [facility] Atorvastatin Calcium Atorvastatin Calcium Yes 40 Bedtime [facility] Azelastine Hcl Azelastine Hcl Yes 1 Daily [facility] Beta Carotene (Preservision Tablet) 1 Each TAB Beta Ca rotene (Preservision Tablet) 1 Each TAB Yes 1 Twice A Day [facility] Chlorthalidone Chlorthalidone Yes 50 Daily [facility] Clopidogrel Bisulfate (Clopidogrel) 75 Mg TABLET Clopi dogrel Bisulfate (Clopidogrel) 75 Mg TABLET Yes 75 Daily [facility] Desonide Desonide Yes 1 Three Times A Day [facility] Fish Oil/Dha/Epa (Fish Oil 1,200 Mg Fish Oil) 1 Each C APSULE Fish Oil/Dha/Epa (Fish Oil 1,200 Mg Fish Oil) 1 Each CAPSULE Yes 1 Twice A Day [facility] Flurourcil 5%Cream Flurourcil 5%Cream Yes 1 Da susan [facility] Folic Acid Folic Acid Yes 1600 Daily [facility] Insulin Aspart (Novolog) 100 Unit/1 Ml CARTRIDGE Insul in Aspart (Novolog) 100 Unit/1 Ml CARTRIDGE Yes 26 Three Times Daily With Meals [facility] Insulin Detemir (Levemir) 100 Unit/1 Ml VIAL Insulin D etemir (Levemir) 100 Unit/1 Ml VIAL Yes Twice A Day [facility] Isosorbide Mononitrate (Isosorbide Mononitrate Er) 30 Mg TAB.ER.24H Isosorbide Mononitrate (Isosorbide Mononitrate Er) 30 Mg TAB.ER.24H Yes [address] [facility] Lisinopril Lisinopril Yes 40 Daily [facility] Mometasone Furoate (Elocon) 15 Gm OINT...G. Mometasone Furoate (Elocon) 15 Gm OINT...G. Yes 1 Daily as needed for Break Ou t [facility] Mupirocin Mupirocin Yes 1 Three Times A Day as needed for Break Out [facility] Pentoxifylline Pentoxifylline Yes 400 Three Time s A Day [facility] Potassium Chloride Potassium Chloride Yes 10 Tw ice A Day [facility] Refresh Advance Refresh Advance Yes 1 Use As D irected [facility] Terbinafine Hcl Terbinafine Hcl Yes 250 Daily [facility] Tylenol Arthritis Tylenol Arthritis Yes 22 0 As Needed as needed for Moderate Pain (4-6) [facility] Valacyclovir Hcl (Valacyclovir) 500 Mg TABLET Valacycl ovir Hcl (Valacyclovir) 500 Mg TABLET Yes 500 Daily [facility] Azelastine/Fluticasone (Dymista Nasal [place]) 23 Gm SPR AY.PUMP Azelastine/Fluticasone (Dymista Nasal [place]) 23 Gm SPRAY.PUMP 2020-07-06 00:00:00 No Daily [facility] Bd Ultrafine Pen Bd Ultrafine Pen 2020-07-06 00:00:00 No Use As Directed [facility] Fish Oil/Dha/Epa (Fish Oil 1,200 Mg Fish Oil) 1 Each C APSULE Fish Oil/Dha/Epa (Fish Oil 1,200 Mg Fish Oil) 1 Each CAPSULE 2020-07-06 00:00:00 No 1 Twice A Day [facility] Folic Folic 2020-07-06 00:00:00 No [facility] Ibuprofen Ibuprofen 2020-07-06 00:00:00 No 220 Daily as needed for Pain [facility] Naproxen Sodium (Aleve) 220 Mg TABLET Naproxen Sodium (Aleve) 22 0 Mg TABLET 2020-07-06 00:00:00 No 2 Daily as needed for Pain [facility] Polyvinyl Alcohol/Povidone/Pf (Refresh Classic Eye Usman ps) 1 Each DROPERETTE Polyvinyl Alcohol/Povidone/Pf (Refresh Classic Eye Drops) 1 Each DROPERETTE 2020-07-06 00:00:00 No 1 Three Times A Day [facility] Proservision Areds 2 Proservision Areds 2 2020-07-06 00:00:00 No 1 Twice A Day [facility] Sulfacetamide Sodium Sulfacetamide Sodium 2020-07-06 00:00:00 No 1 Twice A Day [facility] Immunizations Ordered Immunization Name Filled Immunization Name Date Status Comments Source pneumococcal polysaccharide PPV23 pneumococcal polysaccharid e PPV23 2019-08-10 00:00:00 Completed [facility] ice influenza, injectable, quadrivalent influenza, injectable, q uadrivalent 2019-08-10 00:00:00 [facility], high dose seasonal influenza, high dose seasonal 2017 11:36:49 Completed [facility] influenza, high dose seasonal influenza, high dose seasonal 2015 15:07:33 Completed [facility] pneumococcal, unspecified formulation pneumococcal, unspecif ied formulation 2015-11-03 00:00:00 [facility] zoster live zoster live 2011-11-03 00:00:00 Completed [facility] Vital Signs Vital Name Observation Time Observation Value Comments Source Height 2020-06-02 00:00:00 67 [in_i] [facility] BP Diastolic 2019-11-22 00:00:00 79 mm[Hg] [facility] Height 2019-11-22 00:00:00 67 [in_i] [facility] BMI (Body Mass Index) 2019-11-22 00:00:00 48.4 kg/m2 [facility] BP Systolic 2019-11-22 00:00:00 171 mm[Hg] [facility] Body Weight 2019-11-22 00:00:00 308.8 [lb_av] [facility] BP Diastolic 2019-10-18 00:00:00 87 mm[Hg] [facility] Height 2019-10-18 00:00:00 67 [in_i] [facility] BMI (Body Mass Index) 2019-10-18 00:00:00 48.6 kg/m2 [facility] BP Systolic 2019-10-18 00:00:00 161 mm[Hg] [facility] Body Weight 2019-10-18 00:00:00 310 [lb_av] [facility] Body Temperature 2020-07-13 17:13:00 98.0 [degF] [facility] Weight 2020-07-13 15:57:00 315 [lb_av] [facility] BMI (Body Mass Index) 2020-07-13 15:57:00 46.5 kg/m2 [facility] Body Temperature 2020-07-12 11:30:00 98.0 [degF] [facility] BMI (Body Mass Index) 2020-07-11 13:48:00 42.0 kg/m2 [facility] Weight 2020-07-06 16:48:00 310 [lb_av] [facility] Procedures This patient has no known procedures. Plan of Care Planned Activity Planned Date Details Comments Source Future Scheduled Test 2020-08-03 00:00:00 INFLUENZA VACCINE [code = INFLUENZA VACCINE] Dillan Winters Future Scheduled Test 2020-07-04 00:00:00 INFLUENZA VACCINE (#1) [code = INFLUENZA VACCINE (#1)] [facility] Future Scheduled Test 2018-11-04 00:00:00 MEDICARE ANNUAL WE LLNESS (YEAR 2 or FIRST YEAR if no IPPE) [code = MEDICARE ANNUAL WELLNESS (YEAR 2 or FIRST YEAR if no IPPE)] [facility] Future Scheduled Test 2012-01-02 00:00:00 SHINGLES VACCINES (#2) [code = SHINGLES VACCINES (#2)] [facility] Scheduled Test 2010 00:00:00 PNEUMOCOCCAL 65+ L OW/MEDIUM RISK (1 of 2 - PCV13) [code = PNEUMOCOCCAL 65+ LOW/MEDIUM RISK (1 of 2 - PCV13)] [facility] Future Scheduled Test 2010 00:00:00 65+ PNEUMOCOCCAL V ACCINE (2 of 2 - PPSV23) [code = 65+ PNEUMOCOCCAL VACCINE (2 of 2 - PPSV23)] [facility] Scheduled Test 1995 00:00:00 COLONOSCOPY SCREEN ING [code = COLONOSCOPY SCREENING] [facility] Scheduled Test 1955 00:00:00 DIABETIC FOOT EXAM [code = DIABETIC FOOT EXAM] [facility] Scheduled Test 1955 00:00:00 URINE MICROALBUMIN [code = URINE MICROALBUMIN] [facility] Scheduled Test 1945 00:00:00 Screening for roni gnant neoplasm of colon (procedure) [code = 195888321] [facility] Future Scheduled Test 1945 00:00:00 DIABETIC RETINAL E YE EXAM [code = DIABETIC RETINAL EYE EXAM] [facility] Chest Pain - Chest Wall [facility] Encounters Start Date/Time End Date/Time Encounter Type Admission Type Attendi [facility] Care Department Encounter ID Source 2020-07-13 01:41:00 2020-07-13 21:21:00 Discharged Inpatient (obs) 1 HADLEY GARCIA [facility] [id number] St[facility] 2020-07-11 09:20:00 2020-07-12 13:40:00 Discharged Inpatient (obs) [facility] [id number] [facility] 2020-06-02 00:00:00 2020-06-02 00:00:00 Luis M Nava MD: [address], [place] [address], Ph. V [facility] - _STARLAU[place] [id number] [facility] 2020-04-26 00:00:00 2020-04-26 00:00:00 Dodie Ferro P: [address], [address], [place] [address], [facility] [id number] [facility] 2019-11-22 00:00:00 2019-11-22 00:00:00 Luis M Nava MD: [address], [place] [address], Ph. V [facility]_[place]LIE[place] [id number] [facility] 2019-10-18 00:00:00 2019-10-18 00:00:00 Luis M Nava MD: [address], [place] [address], Ph. V [facility]_KYLIE[place] [id number] [facility] Results Test Description Test Time Test Comments Results Result Comments Source CT BRAIN WO 2020-07-15 15:22:00 [facility] [address] [address] Patient Name: ELYSSA FERNANDEZ MR #: [id number] : 1945 Age/Sex: 75/M Req #: [id number] Adm Physician: Ordered by: SLAVA VEGA MD Report #: [id number] Location: ER Room/Bed: Procedure: [id number] CT/CT BRAIN WO Exam Date: 07/15/20 Exam [...] Kinase (test code = 2157-6) 85 30-200 [facility] plasma creatine kinase MB measurement (mass/volume)2020-07-13 20:20:00* Test Item Value Reference Range Interpretation Comments Creatine Kinase MB (test code = 57261-4) 2.50 0-5.0 [facility] HospitalTroponin I measurement by highly sensitive enzyme [id number] 20:20:00* Test Item Value Reference Range Interpretation Comments Troponin I (test code = 45270-5) 0.274 0-0.300 [facility] HospitalCaps[facility] blood glucose measurement by glucometer (mass/volume)2020-07-13 10:18:00* Test Item Value Reference Range Interpretation Comments Bedside Glucose (test code = 48754-4) 385 70-120 Meter ID: [id number] [facility] HospitalBlood leukocytes automated count (number/volume)2020-07-13 09:06:00* Test Item Value Reference Range Interpretation Comments White Blood Count (test code = 6690-2) 6.78 4.8-10.8 [facility] erythrocytes automated count (number/volume)2020-07-13 09:06:00* Test Item Value Reference Range Interpretation Comments Red Blood Count (test code = 789-8) 3.41 4.3-5.7 [facility] hemoglobin measurement (moles/volume)2020-07-13 09:06:00* Test Item Value Reference Range Interpretation Comments Hemoglobin (test code = 55979-1) 10.6 14.0-18.0 [facility] HospitalAutomated blood hematocrit (volume fraction)2020-07-13 09:06:00* Test Item Value Reference Range Interpretation Comments Hematocrit (test code = 4544-3) 32.2 38.2-49.6 [facility] HospitalAutomated erythrocyte mean corpuscular [id number] 09:06:00* Test Item Value Reference Range Interpretation Comments Mean Corpuscular Volume (test code = 787-2) 94.4 81-99 [facility] HospitalAutomated erythrocyte mean corpuscular hemoglobin (mass per erythrocyte)2020-07-13 09:06:00* Test Item Value Reference Range Interpretation Comments Mean Corpuscular Hemoglobin (test code = 785-6) 31.1 28-32 [facility] HospitalAutomated erythrocyte mean corpuscular hemoglobin concentration measurement (mass/volume)2020-07-13 09:06:00* Test Item Value Reference Range Interpretation Comments Mean Corpuscular Hemoglobin Concent (test code = 786-4) 32.9 31-35 [facility] HospitalRDW [id number]-Gjc4569-26-10 09:06:00* Test Item Value Reference Range Interpretation Comments Red Cell Distribution Width (test code = 35466-9) 14.6 11.7 -14.4 [facility] HospitalAutomated blood platelet count (count/volume)2020-07-13 09:06:00* Test Item Value Reference Range Interpretation Comments Platelet Count (test code = 777-3) 247 140-360 [facility] HospitalAutomated blood segmented neutrophil count as percentage of total [id number] 09:06:00* Test Item Value Reference Range Interpretation Comments Neutrophils (%) (Auto) (test code = 04461-3) 58.2 38.7-80.0 [facility] HospitalAutomated blood lymphocyte count as percentage ot total [id number] 09:06:00* Test Item Value Reference Range Interpretation Comments Lymphocytes (%) (Auto) (test code = 736-9) 28.3 18.0-39.1 [facility] HospitalAutomated blood monocyte count as percentage of total dvhsnbrfmt0822-25-09 09:06:00* Test Item Value Reference Range Interpretation Comments Monocytes (%) (Auto) (test code = 5905-5) 11.7 4.4-11.3 [facility] HospitalAutomated blood eosinophil count as percentage of total [id number] 09:06:00* Test Item Value Reference Range Interpretation Comments Eosinophils (%) (Auto) (test code = 713-8) 1.6 0.0-6.0 [facility] HospitalAutomated blood basophil count as percentage of total [id number] 09:06:00* Test Item Value Reference Range Interpretation Comments Basophils (%) (Auto) (test code = 706-2) 0.1 0.0-1.0 [facility] HospitalFluoroscopic procedure less than one hour [id number] 09:06:00* Test Item Value Reference Range Interpretation Comments IM GRANULOCYTES % (test code = IM GRANULOCYTES %) 0.1 0.0- 1.0 [facility] HospitalAutomated blood neutrophil count 2020-07-13 09:06:00* Test Item Value Reference Range Interpretation Comments Neutrophils # (Auto) (test code = 751-8) 3.9 2.1-6.9 [facility] HospitalBlood lymphocytes count (number/volume) 2020-07-13 09:06:00* Test Item Value Reference Range Interpretation Comments Lymphocytes # (Auto) (test code = 10406-5) 1.9 1.0-3.2 [facility] HospitalBlood monocytes automated count (number/volume)2020-07-13 09:06:00* Test Item Value Reference Range Interpretation Comments Monocytes # (Auto) (test code = 742-7) 0.8 0.2-0.8 [facility] HospitalAutomated blood eosinophil count 2020-07-13 09:06:00* Test Item Value Reference Range Interpretation Comments Eosinophils # (Auto) (test code = 711-2) 0.1 0.0-0.4 [facility] HospitalAutomated blood basophil count (count/volume)2020-07-13 09:06:00* Test Item Value Reference Range Interpretation Comments Basophils # (Auto) (test code = 704-7) 0.0 0.0-0.1 [facility] HospitalFluoroscopic procedure less than one hour [id number] 09:06:00* Test Item Value Reference Range Interpretation Comments Absolute Immature Granulocyte (auto (david t code = Absolute Immature Granulocyte (auto) 0.01 0-0.1 [facility] or plasma sodium measurement (moles/volume)2020-07-13 09:06:00* Test Item Value Reference Range Interpretation Comments Sodium Level (test code = 2951-2) 139 136-145 [facility] potassium measurement (moles/volume)2020-07-13 09:06:00* Test Item Value Reference Range Interpretation Comments Potassium Level (test code = 2823-3) 3.3 3.5-5.1 [facility] chloride measurement (moles/volume)2020-07-13 09:06:00* Test Item Value Reference Range Interpretation Comments Chloride Level (test code = 2075-0) 103 98-107 [facility] plasma carbon dioxide, total measurement (moles/volume)2020-07-13 09:06:00* Test Item Value Reference Range Interpretation Comments Carbon Dioxide Level (test code = 2028-9) 22 22-29 [facility] anion [id number] 09:06:00* Test Item Value Reference Range Interpretation Comments Anion Gap (test code = 75173-3) 17.3 8-16 [facility] urea nitrogen measurement (mass/volume)2020-07-13 09:06:00* Test Item Value Reference Range Interpretation Comments Blood Urea Nitrogen (test code = 3094-0) 22 7-26 [facility] creatinine measurement (mass/volume)2020-07-13 09:06:00* Test Item Value Reference Range Interpretation Comments Creatinine (test code = 2160-0) 1.66 0.72-1.25 [facility] urea nitrogen/creatinine mass qfrby8118-39-49 09:06:00* Test Item Value Reference Range Interpretation Comments BUN/Creatinine Ratio (test code = 3097-3) 13 6-25 [facility] HospitalEstimated glomerular filtration rate (GFR) zcmwftmjkemnd6102-59-41 09:06:00* Test Item Value Reference Range Interpretation Comments Estimat Glomerular Filtration Rate (test code = 045883954) 41 >60 Ranges were taken from the National Kidney Disease Education Program and the [facility] literature.Reference ranges:60 or greater: Xunffz41-61 ( for 3 consecutive months): Chronic kidney disease 15 or less: Kidney failureTexas Health Arlington Memorial HospitalGlucose fmkzzbwkgpw9681-93-87 09:06:00* Test Item Value Reference Range Interpretation Comments Glucose Level (test code = CUS3931) 336 74-118 [facility] calcium measurement (mass/volume)2020-07-13 09:06:00* Test Item Value Reference Range Interpretation Comments Calcium Level (test code = 75441-3) 8.3 8.4-10.2 [facility] total bilirubin measurement (mass/volume)2020-07-13 09:06:00* Test Item Value Reference Range Interpretation Comments Total Bilirubin (test code = 1975-2) 0.8 0.2-1.2 [facility] HospitalFluoroscopic procedure less than one hour uqiotvkv2016-23-00 09:06:00* Test Item Value Reference Range Interpretation Comments Aspartate Amino Transf (AST/SGOT) (test code = Aspartate Amino Transf (AST/SGOT)) 15 5-34 [facility] alanine aminotransferase measurement (enzymatic activity/volume)2020-07-13 09:06:00* Test Item Value Reference Range Interpretation Comments Alanine Aminotransferase (ALT/SGPT) (test code = 1742-6) 23 0-55 [facility] protein measurement (mass/volume)2020-07-13 09:06:00* Test Item Value Reference Range Interpretation Comments Total Protein (test code = 2885-2) 6.0 6.5-8.1 [facility] albumin measurement (mass/volume)2020-07-13 09:06:00* Test Item Value Reference Range Interpretation Comments Albumin (test code = 1751-7) 3.4 3.5-5.0 [facility] HospitalPlasma globulin measurement (mass/volume) 2020-07-13 09:06:00* Test Item Value Reference Range Interpretation Comments Globulin (test code = 14516-0) 2.6 2.3-3.5 [facility] albumin/globulin mass pzabv8998-18-06 09:06:00* Test Item Value Reference Range Interpretation Comments Albumin/Globulin Ratio (test code = 1759-0) 1.3 0.8-2.0 [facility] alkaline phosphatase measurement (enzymatic activity/volume)2020-07-13 09:06:00* Test Item Value Reference Range Interpretation Comments Alkaline Phosphatase (test code = 6768-6) 120 40-150 [facility] triglyceride measurement (mass/volume)2020-07-13 09:06:00* Test Item Value Reference Range Interpretation Comments Triglycerides Level (test code = 2571-8) 171 0-149 [facility] cholesterol measurement (mass/volume)2020-07-13 09:06:00* Test Item Value Reference Range Interpretation Comments Cholesterol Level (test code = 2093-3) 170 0-199 Less than 200 mg/dL Low Ijdi566 - 239 mg/dL Borderline Hiua916 m g/dl and greater High Risk [facility] cholesterol in LDL measurement (mass/volume) 2020-07-13 09:06:00* Test Item Value Reference Range Interpretation Comments LDL Cholesterol (test code = 2089-1) 101 60-130 [facility] cholesterol in HDL measurement (mass/volume)2020-07-13 09:06:00* Test Item Value Reference Range Interpretation Comments HDL Cholesterol (test code = 2085-9) 35 40-60 [facility] plasma total cholesterol/cholesterol in HDL mass icqol9105-77-72 09:06:00* Test Item Value Reference Range Interpretation Comments Cholesterol/HDL Ratio (test code = 9830-1) 4.9 3.9-4.7 [facility] HospitalCHE[facility]INGLE (PORTABLE)2020-07-13 01:28:00 [place] [address] Patient Name: ELYSSA FERNANDEZ MR #: [id number] : 1945 Age/Sex: 75/M Req #: [id number] Adm Physician: Ordered by: HADLEY GARCIA MD Report #: [id number] Location: ER Room/Bed: Procedure: [id number] DX/BETSY ST SINGLE (PORTABLE) Exam Date: 07/13/20 [...] (PT) in platelet poor plasma by coagulation bnimm1919-33-63 00:30:00* Test Item Value Reference Range Interpretation Comments Prothrombin Time (test code = 5902-2) 12.4 11.9-14.5 [facility] HospitalINR in Platelet poor plasma by Coagulation weacd5120-58-81 00:30:00* Test Item Value Reference Range Interpretation Comments Prothromb Time International Ratio (test code = 6301-6) 0.88 Oral Anticoagulant Therapy INR Values:1. Low Intensity Therapy 1.5 - 2.02 . Moderate Intensity Therapy 2.0 - 3.03. High Intensity Therapy(1) 2.5 - 3. 54. High Intensity Therapy(2) 3.0 - 4.05. Panic Value INR > 5.0 [facility] HospitalActivated partial thromboplastin time (aPTT) in platelet poor plasma by coagulation oyogv7716-22-89 00:30:00* Test Item Value Reference Range Interpretation Comments Activated Partial Thromboplast Time (test code = 19134-0) 23.2 23.8-35.5 [facility] Zrv-eNjl1318-37-10 00:30:00* Test Item Value Reference Range Interpretation Comments B-Type Natriuretic Peptide (test code = 88020-9) 41.4 0-100 [facility] sodium measurement (moles/volume)2020-07-12 06:04:00* Test Item Value Reference Range Interpretation Comments Sodium Level (test code = 2951-2) 138 136-145 [facility] potassium measurement (moles/volume)2020-07-12 06:04:00* Test Item Value Reference Range Interpretation Comments Potassium Level (test code = 2823-3) 3.4 3.5-5.1 [facility] chloride measurement (moles/volume)2020-07-12 06:04:00* Test Item Value Reference Range Interpretation Comments Chloride Level (test code = 2075-0) 102 98-107 [facility] carbon dioxide, total measurement (moles/volume)2020-07-12 06:04:00* Test Item Value Reference Range Interpretation Comments Carbon Dioxide Level (test code = 2028-9) 21 22-29 [facility] anion wkq4819-34-55 06:04:00* Test Item Value Reference Range Interpretation Comments Anion Gap (test code = 08953-7) 18.4 8-16 [facility] urea nitrogen measurement (mass/volume)2020-07-12 06:04:00* Test Item Value Reference Range Interpretation Comments Blood Urea Nitrogen (test code = 3094-0) 19 7-26 [facility] creatinine measurement (mass/volume)2020-07-12 06:04:00* Test Item Value Reference Range Interpretation Comments Creatinine (test code = 2160-0) 1.34 0.72-1.25 [facility] urea nitrogen/creatinine mass uigyr1623-98-78 06:04:00* Test Item Value Reference Range Interpretation Comments BUN/Creatinine Ratio (test code = 3097-3) 14 6-25 [facility] HospitalEstimated glomerular filtration rate (GFR) bqkzrukybaysn3004-08-86 06:04:00* Test Item Value Reference Range Interpretation Comments Estimat Glomerular Filtration Rate (test code = 564999334) 52 >60 Ranges were taken from the National Kidney Disease Education Program and the [facility] literature.Reference ranges:60 or greater: Dhdnmj90-28 ( for 3 consecutive months): Chronic kidney disease 15 or less: Kidney failureTexas Health Arlington Memorial HospitalGlucose vicgumehguu0693-16-34 06:04:00* Test Item Value Reference Range Interpretation Comments Glucose Level (test code = KYQ5848) 276 74-118 [facility] calcium measurement (mass/volume)2020-07-12 06:04:00* Test Item Value Reference Range Interpretation Comments Calcium Level (test code = 76924-0) 8.6 8.4-10.2 [facility] total bilirubin measurement (mass/volume)2020-07-12 06:04:00* Test Item Value Reference Range Interpretation Comments Total Bilirubin (test code = 1975-2) 1.0 0.2-1.2 [facility] HospitalFluoroscopic procedure less than one hour zuircqdm1940-39-63 06:04:00* Test Item Value Reference Range Interpretation Comments Aspartate Amino Transf (AST/SGOT) (test code = Aspartate Amino Transf (AST/SGOT)) 15 5-34 [facility] alanine aminotransferase measurement (enzymatic activity/volume)2020-07-12 06:04:00* Test Item Value Reference Range Interpretation Comments Alanine Aminotransferase (ALT/SGPT) (test code = 1742-6) 27 0-55 [facility] protein measurement (mass/volume)2020-07-12 06:04:00* Test Item Value Reference Range Interpretation Comments Total Protein (test code = 2885-2) 6.3 6.5-8.1 [facility] albumin measurement (mass/volume)2020-07-12 06:04:00* Test Item Value Reference Range Interpretation Comments Albumin (test code = 1751-7) 3.6 3.5-5.0 [facility] HospitalPlasma globulin measurement (mass/volume) 2020-07-12 06:04:00* Test Item Value Reference Range Interpretation Comments Globulin (test code = 04118-8) 2.7 2.3-3.5 [facility] albumin/globulin mass wjrwj0158-35-39 06:04:00* Test Item Value Reference Range Interpretation Comments Albumin/Globulin Ratio (test code = 1759-0) 1.3 0.8-2.0 [facility] alkaline phosphatase measurement (enzymatic activity/volume)2020-07-12 06:04:00* Test Item Value Reference Range Interpretation Comments Alkaline Phosphatase (test code = 6768-6) 134 40-150 [facility] HospitalCapillary blood glucose measurement by glucometer (mass/volume)2020-07-11 15:33:00* Test Item Value Reference Range Interpretation Comments Bedside Glucose (test code = 31992-8) 300 70-120 Meter ID: [id number] Scott and [facility] the [facility] – PlanoFluoroscopic procedure less than one hour uhzbjtig7628-14-87 13:02:00* Test Item Value Reference Range Interpretation Comments Coronavirus (PCR) (test code = Coronavirus (PCR)) NOT DETECTED NOTD ETECTED Oz [employer] Aptima SARS-CoV-2 assay is a nucleic amplification test intended for the qualitative detection of RNA from SARS-CoV-2 from nasopharyngeal (APPLICATION COUNSELOR) specimens. It is used under Emergency Use [...] for reprat testing oc clinically indicated.Tesing performed by:[facility] [address] [place] [address] [id number], Hadley Sewell MD, PhD [facility] HospitalFluoroscopic procedure less than one hour kgabwjpa1754-80-27 13:02:00* Test Item Value Reference Range Interpretation Comments Coronavirus (PCR) (test code = Coronavirus (PCR)) NOT DETECTED NOTD ETECTED [employer] Aptima SARS-CoV-2 assay is a nucleic amplification test intended for the qualitative detection of RNA from SARS-CoV-2 from nasopharyngeal (APPLICATION COUNSELOR) specimens. It is used under Emergency Use [...] for reprat testing oc clinically indicated.Tesing performed by:[facility] [address] [place] [address] [id number], Hadley Sewell MD, PhD [facility] HospitalBlst[facility] leukocytes automated count (number/volume)2020-07-06 12:24:00* Test Item Value Reference Range Interpretation Comments White Blood Count (test code = 6690-2) 6.33 4.8-10.8 [facility] HospitalBlst[facility] erythrocytes automated count (number/volume)2020-07-06 12:24:00* Test Item Value Reference Range Interpretation Comments Red Blood Count (test code = 789-8) 4.34 4.3-5.7 [facility] HospitalBlood hemoglobin measurement (moles/volume)2020-07-06 12:24:00* Test Item Value Reference Range Interpretation Comments Hemoglobin (test code = 07244-4) 13.2 14.0-18.0 [facility] HospitalAutomated blood hematocrit (volume fraction)2020-07-06 12:24:00* Test Item Value Reference Range Interpretation Comments Hematocrit (test code = 4544-3) 39.6 38.2-49.6 [facility] HospitalAutomated erythrocyte mean corpuscular qeeiin2043-95-60 12:24:00* Test Item Value Reference Range Interpretation Comments Mean Corpuscular Volume (test code = 787-2) 91.2 81-99 [facility] HospitalAutomated erythrocyte mean corpuscular hemoglobin (mass per erythrocyte)2020-07-06 12:24:00* Test Item Value Reference Range Interpretation Comments Mean Corpuscular Hemoglobin (test code = 785-6) 30.4 28-32 [facility] HospitalAutomated erythrocyte mean corpuscular hemoglobin concentration measurement (mass/volume)2020-07-06 12:24:00* Test Item Value Reference Range Interpretation Comments Mean Corpuscular Hemoglobin Concent (test code = 786-4) 33.3 31-35 [facility] HospitalRDW IrcEc-Iep4975-32-03 12:24:00* Test Item Value Reference Range Interpretation Comments Red Cell Distribution Width (test code = 94293-8) 13.7 11.7 -14.4 [facility] HospitalAutomated blood platelet count (count/volume)2020-07-06 12:24:00* Test Item Value Reference Range Interpretation Comments Platelet Count (test code = 777-3) 282 140-360 [facility] HospitalAutomated blood segmented neutrophil count as percentage of total xljsikdxjf4402-16-87 12:24:00* Test Item Value Reference Range Interpretation Comments Neutrophils (%) (Auto) (test code = 51191-7) 55.2 38.7-80.0 [facility] HospitalAutomated blood lymphocyte count as percentage ot total ipitdajost8243-58-76 12:24:00* Test Item Value Reference Range Interpretation Comments Lymphocytes (%) (Auto) (test code = 736-9) 35.2 18.0-39.1 [facility] HospitalAutomated blood monocyte count as percentage of total oqzxaibydl8492-17-88 12:24:00* Test Item Value Reference Range Interpretation Comments Monocytes (%) (Auto) (test code = 5905-5) 7.1 4.4-11.3 [facility] HospitalAutomated blood eosinophil count as percentage of total sdxvkangpy0369-33-21 12:24:00* Test Item Value Reference Range Interpretation Comments Eosinophils (%) (Auto) (test code = 713-8) 1.9 0.0-6.0 [facility] HospitalAutomated blood basophil count as percentage of total pirflcnhne7372-66-39 12:24:00* Test Item Value Reference Range Interpretation Comments Basophils (%) (Auto) (test code = 706-2) 0.3 0.0-1.0 [facility] HospitalFluoroscopic procedure less than one hour phrmhpul8852-22-97 12:24:00* Test Item Value Reference Range Interpretation Comments IM GRANULOCYTES % (test code = IM GRANULOCYTES %) 0.3 0.0- 1.0 [facility] HospitalAutomated blood neutrophil count 2020-07-06 12:24:00* Test Item Value Reference Range Interpretation Comments Neutrophils # (Auto) (test code = 751-8) 3.5 2.1-6.9 [facility] HospitalBlst[facility] lymphocytes count (number/volume) 2020-07-06 12:24:00* Test Item Value Reference Range Interpretation Comments Lymphocytes # (Auto) (test code = 08469-5) 2.2 1.0-3.2 [facility] HospitalBlst[facility] monocytes automated count (number/volume)2020-07-06 12:24:00* Test Item Value Reference Range Interpretation Comments Monocytes # (Auto) (test code = 742-7) 0.5 0.2-0.8 [facility] HospitalAutomated blood eosinophil count 2020-07-06 12:24:00* Test Item Value Reference Range Interpretation Comments Eosinophils # (Auto) (test code = 711-2) 0.1 0.0-0.4 [facility] HospitalAutomated blood basophil count (count/volume)2020-07-06 12:24:00* Test Item Value Reference Range Interpretation Comments Basophils # (Auto) (test code = 704-7) 0.0 0.0-0.1 [facility] HospitalFluoroscopic procedure less than one hour suajuwsp0827-38-34 12:24:00* Test Item Value Reference Range Interpretation Comments Absolute Immature Granulocyte (auto (david t code = Absolute Immature Granulocyte (auto) 0.02 0-0.1 [facility] CenterTROPONIN [id number] 13:38:00* Test Item Value Reference Range Interpretation [...] 700) 133 pg/mL 0-100 H BASIC METABOLIC NNZOV0513-19-90 13:30:00* Test Item Value Reference Range Interpretation [...] INSUFFICIENT CLINICAL DATA TO CALCULATE ESTIMATED GFR. UFJTPPHGW6268-93-33 13:30:00* Test Item Value Reference Range Interpretation Comments MAGNESIUM (BEAKER) (test code = 627) 2.0 mg/dL 1.5-3.0 CBC W/PLT COUNT & AUTO UXDLFEJIPQYI0407-42-37 13:11:00* Test Item Value Reference Range Interpretation [...] % 0-0 RAD, CHEST, 1 VIEW, NON JQHY0440-84-88 13:10:00Reason for exam:->DIZZINESSReason for exam:->SHORTNESS OF BREATHFINAL REPORT AP chest dated 07/04/2019 Comment: Heart is normal in size. Pulmonary vasculature is unremarkable. Lungs are clear. No pulmonary infiltrate or pleural effusion. Impression: No active cardiopulmonary disease. Signed: Iona Darlingeport Verified Date/Time: 07/04/2019 13:10:35 Reading Location: [facility] B1 C013Y CT Body Reading Room ULATION TIME [id number] 12:07:00* Test Item Value Reference Range Interpretation Comments COAGULATION TIME ACTIVATED (test code = ACT) 242 seconds 62.8-88.0 H COAGULATION TIME OFVKYOGVM8486-02-01 12:07:00* Test Item Value Reference Range Interpretation Comments COAGULATION TIME ACTIVATED (test code = ACT) 231 seconds 62.8-88.0 H COAGULATION TIME [id number] 12:07:00* Test Item Value Reference Range Interpretation Comments COAGULATION TIME ACTIVATED (test code = ACT) 216 seconds 62.8-88.0 H [id number] 10:24:00* Test Item Value Reference Range Interpretation Comments GLUBED (test code = GLUBED) 284 mg/dL 74-106 H Performed by certified communications operator at [facility] ISICNE3341-24-48 05:36:00* Test Item Value Reference Range Interpretation Comments GLUBED (test code = GLUBED) 221 mg/dL 74-106 H Performed by certified communications operator at [facility] UWHOVD2862-53-00 05:35:00* Test Item Value Reference Range Interpretation Comments GLUBED (test code = GLUBED) 328 mg/dL 74-106 H Performed by certified communications operator at [facility] RAMIJJ6322-22-13 17:01:00* Test Item Value Reference Range Interpretation Comments GLUBED (test code = GLUBED) 266 mg/dL 74-106 H Performed by certified communications operator at [facility] BCQAIA5156-25-57 12:38:00* Test Item Value Reference Range Interpretation Comments GLUBED (test code = GLUBED) 270 mg/dL 74-106 H Performed by certified communications operator at [facility] BASIC METABOLIC DGPIN6265-00-03 04:48:00* Test Item Value Reference Range Interpretation [...] code = CA) 8.8 mg/dL 8.5-10.1 N [id number] 04:28:00* Test Item Value Reference Range Interpretation Comments GLUBED (test code = GLUBED) 220 mg/dL 74-106 H Performed by certified communications operator at [facility] CBC W/AUTO [id number] 04:08:00* Test Item Value Reference Range Interpretation [...] code = NRBC#) 0.00 K/mm3 0.0-0.1 N [id number] 21:37:00* Test Item Value Reference Range Interpretation Comments GLUBED (test code = GLUBED) 241 mg/dL 74-106 H Performed by certified communications operator at [facility] UJMOZT9618-07-26 19:15:00* Test Item Value Reference Range Interpretation Comments GLUBED (test code = GLUBED) 260 mg/dL 74-106 H Performed by certified communications operator at [facility] APRQJM3045-58-56 13:09:00* Test Item Value Reference Range Interpretation Comments GLUBED (test code = GLUBED) 229 mg/dL 74-106 H Performed by certified communications operator at [facility] BASIC METABOLIC [id number] 03:50:00* Test Item Value Reference Range Interpretation [...] CA) 8.6 mg/dL 8.5-10.1 N BASIC METABOLIC [id number] 03:46:00* Test Item Value Reference Range Interpretation [...] code = CA) mg/dL 8.5-10.1 CBC W/AUTO LORN5024-56-31 03:43:00* Test Item Value Reference Range Interpretation [...] code = NRBC#) 0.00 K/mm3 0.0-0.1 N [id number] 00:01:00* Test Item Value Reference Range Interpretation Comments GLUBED (test code = GLUBED) 368 mg/dL 74-106 H Performed by certified communications operator at [facility] [id number] 16:12:00* Test Item Value Reference Range Interpretation Comments GLUBED (test code = GLUBED) 318 mg/dL 74-106 H Performed by certified communications operator at [facility] AROLBC5481-91-14 13:12:00* Test Item Value Reference Range Interpretation Comments GLUBED (test code = GLUBED) 307 mg/dL 74-106 H Performed by certified communications operator at [facility] RGSMPY2623-32-17 08:33:00* Test Item Value Reference Range Interpretation Comments GLUBED (test code = GLUBED) 260 mg/dL 74-106 H Performed by certified communications operator at [facility] CTIURCOV-Z6422-35-05 03:03:00* Test Item Value Reference Range Interpretation Comments TROPONIN-I (test code = TROPI) 1.370 ng/mL 0-0.045 HH RESULT VERIFIED BY REPEAT ANALYSIS COMMENTS TO EMERGENCY PLANNER: COLLECT 3 HOURS AFTER PREVIOUS SAMPLEBASIC METABOLIC [id number] 02:43:00* Test Item Value Reference Range Interpretation [...] code = CA) 8.4 mg/dL 8.5-10.1 L [id number] 02:43:00* Test Item Value Reference Range Interpretation Comments MAGNESIUM (test code = MAG) 2.1 mg/dL 1.8-2.4 N [id number] 01:38:00* Test Item Value Reference Range Interpretation Comments GLUBED (test code = GLUBED) 354 mg/dL 74-106 H Performed by certified communications operator at [facility] [id number] 23:04:00* Test Item Value Reference Range Interpretation Comments TROPONIN-I (test code = TROPI) 0.679 ng/mL 0-0.045 HH RESULT VERIFIED BY REPEAT ANALYSIS COMMENTS TO EMERGENCY PLANNER: COLLECT 3 HOURS AFTER PREVIOUS [id number] 22:45:00* Test Item Value Reference Range Interpretation [...] result is a direct measurement.========= BASIC METABOLIC [id number] 17:49:00* Test Item Value Reference Range Interpretation [...] code = CA) 9.0 mg/dL 8.5-10.1 N [id number] 17:49:00* Test Item Value Reference Range Interpretation Comments TROPONIN-I (test code = TROPI) 0.115 ng/mL 0-0.045 Results called to [id number] by 03/06/19 1749Critical results verified and read back by Nurse? Y B-TYPE NATRIURETIC [id number] 17:37:00* Test Item Value Reference Range Interpretation Comments B-TYPE NATRIURETIC PEPTIDE (test code = BNP) 74.26 pgram/mL 0-100 N - XR CHEST 1 [id number] 17:37:00 FAX: TOI FRIED MD [place]: St: REG Name: ELYSSA HOPKINS [facility] : [birth year] Age/S: 73/M [address] [facility] Unit #: [id number] Loc: [place] [address] Phys: TOI FRIED MD Acct: [id number] Dis Date: Status: REG ER PHONE #: [phone] Exam Date: 03/06/2019 1710 FAX #: [phone] Reason: CHEST PAIN EXAMS: CPT CODE: [id number] XR CHEST 1 V 45582 HISTORY: CHEST PAIN TECHNIQUE: AP chest x-ray COMPARISON: 03/22/18 FINDIN GS: No airspace consolidation or pleural effusion. Cardiomegaly. Atherosclerotic vascular calcification of the thoracic aorta. Sternot tanya wires. Cervicothoracic spondylosis. IMPRESSION: No radiographic evidence of acute cardiopulmonary process. No sign ificant interval change. at 173 Reported and signed by: Shante Dumont CC: TOI FRIED MD Technologist: RT VIANNEY(R) Trnscrd Date/Time/By: 03/06/2019 (173) : By: [email or web address] Orig Print D/T: S: 0 03/06/2019 (3837) PAGE 1 Signed Re port BASIC METABOLIC [id number] 17:11:00* Test Item Value Reference Range Interpretation [...] CALCIUM (test code = CA) mg/dL 8.5-10.1 [id number] 17:11:00* Test Item Value Reference Range Interpretation Comments TROPONIN-I (test code = TROPI) ng/mL 0-0.045 CBC W/O [id number] 16:53:00* Test Item Value Reference Range Interpretation [...] MPV) 9.4 fL 6.7-11.0 N CBC W/O [id number] 16:52:00* Test Item Value Reference Range Interpretation [...]
[2020-07-15] MEDS ORDERED: MORPHINE SULFATE INJ 4 MG/ML INJ 1ML IV PRN (18:30)
--- NOTE | 2020-07-15 20:29 | Diagnostic Imaging Report ---
EXAM: CT Chest WITH contrast (PE Protocol) INDICATION: Dizziness COMPARISON: Chest x-ray 07/13/2020 TECHNIQUE: Chest was scanned utilizing a multidetector helical scanner from the lung apex through the level of the diaphragm after administration of IV contrast. Thin section reconstructions were obtained with special concentration on the pulmonary arteries. Coronal and sagittal reformations were obtained. Pulmonary embolism protocol was performed. IV CONTRAST: 100 mL of Isovue 370 COMPLICATIONS: None RADIATION DOSE: Total DLP: 684 mGy*cm Estimated effective dose: (DLP x 0.014 x size factor) mSv CTDIvol has been reviewed. It is below the limits set by the Radiation Protocol Committee (RPC). Dose modulation, iterative reconstruction, and/or weight based adjustment of the mA/kV was utilized to reduce the radiation dose to as low as reasonably achievable. FINDINGS: LINES/ TUBES: None. LUNGS AND AIRWAYS: No pulmonary arterial filling defects. Mild prominence of pulmonary vascular. Subtle interlobular septal and intrapulmonary fissure thickening. No consolidations. Airways are normal. PLEURA: The pleural spaces are clear. HEART AND MEDIASTINUM: The thyroid gland is normal. No mediastinal, hilar or axillary lymphadenopathy. Mild and central dilation. Surgical changes of coronary bypass graft. Calcific locations of the aorta and major branches including the coronary arteries. Mild main pulmonary artery diameter 3.1 cm, upper limit of normal. UPPER ABDOMEN: A 6.3 cm left renal superior pole simple appearing cyst. subtle benign-appearing adrenal nodularity. BONES: The visualized bony thorax is within normal limits. Chronic appearing mild T12 vertebral body compression fracture. Degenerative change. Sternotomy wires. SOFT TISSUES: Unremarkable. IMPRESSION: No pulmonary emboli. Mild left atrial dilation and pulmonary vascular congestion. Subtle pulmonary interstitial edema. Chronic appearing mild T12 vertebral body compression fracture. Signed by: Damon Osman DO on 07/15/2020 8:26 PM
[2020-07-15 21:27] VITALS: BP 167/66
[2020-07-15 21:33] VITALS: BP 167/66
[2020-07-15] MEDS ORDERED: LANTUS 3ML100 UNITS/ SC ×2 (21:47)
--- NOTE | 2020-07-15 21:48 | NUR ---
patient is a new admit that arrived via wheelchair. patient is awake and talking. patient has been assisted into the ed. bed is in the lowest position and call light is within reach. will continue to monitor patient.
[2020-07-15 22:06] VITALS: BP 167/66
[2020-07-16] VITALS (8 sets, daily range): BP systolic 150–169; BP diastolic 64–76
--- NOTE | 2020-07-16 00:09 | NUR ---
History of Present Illness This is a 75 year old male who underwent cardiac catheterization and 2 stents placed last week who presented with a history of near syncope. The patient stated that he was experiencing discomfort in the chest localized anteriorly. Denies nausea, no vomiting, no diarrhea. No fever no chills no history of passing out. As he stated in the emergency room department basically patient was getting up and walking back from the restroom he was at rest when he started getting very lightheaded and felt like he was going to "black out. He follows up with Dr. Ferrer. Past Medical History Significant for hypertension, diabetes mellitus, coronary disease and previous [place] Recent Fever: No SLEEP APNEA Past Surgical History: PCI Other Surgery: UMBLICAL HERNIA,CARDIAC STENT 82 , Social history: No tobacco drug abuse. Allergies: Per chart. furosemide Review of system: Constitutional: No Fever, No chills, No General weakness HEENT: No headaches. Cardiovascular: See present history Respiratory: No Cough, hemoptysis or SOB GI: Denies Nausea/V/D, hematemesis, melena. : Denies Hematuria, Dysuria, Frequency Musculoskeletal: Denies joint pain Neuro: No focal weakness Psych: No anxiety or depression. Skin: Rash noted to lower extremities Physical Exam Related Data Allergies: Coded Allergies: furosemide (Verified Allergy, Unknown, 07/06/20) Triage Vital Signs Vital Signs Physical exam:. Patient alert oriented person time place the patient was in no distress. Vital signs blood pressure 138/70, respiration 20, pulse 70, temperature 98.5 HEENT: No gross abnormalities Neck: Supple no JVD Lungs: Clear to auscultation Heart: Regular rate and rhythm, no murmurs no gallops Abdomen: Soft non tender, no guarding. Extremities: Edematous. Rash present on both lower extremities. 3+ edema. Lymphedema Neurologic: Alert oriented 3, no focal weakness. Psychiatrist: Normal mood, normal judgment. Skin: No rashes Laboratory data: CBC did reveal hemoglobin 10.8, WBC 6.64, absolute count 277,000 Sodium 139, potassium 3.4, chloride 101, CO2 25, BUN 18, creatinine 1.41, GFR 49 CBC revealed: Hemoglobin 10.5, WBC 7. 8 2, platelet count 267 CT chest: Revealed no evidence of pleural emboli. Mild left atrial dilation and pulmonary vascular congestion. Stable pulmonary interstitial edema. Chronic appearing mild T12 vertebral body compression fracture CT head: No acute intracranial normality. EKG: Normal sinus rhythm, normal axis, normal intervals aside from a KS that is prolonged at 202, first-degree AV block, no acute ST changes. Assessment: Syncopal spell etiology undetermined rule out cardiac arrhythmias Pulmonary edema Hypoxemia, mild to moderate Chest pain, rule out acute coronary syndrome Leg ulcer Status post coronary artery bypass graft surgery Previous cardiac stenting Chronic kidney disease stage III Coronary artery disease Diabetes mellitus type 2 Morbid obesity Sleep apnea Hypertension In mobility Plan of care: Admit the patient to the hospital Consult cardiology and pulmonary reconcile home medications. Glycemic control Diuretics. Symptom control. Follow-up labs. PT OT evaluation.
[2020-07-16 01:15] LABS: AMPHETAMINES SCREEN,URINE NEGATIVE (NEGATIVE); BENZODIAZEPINES SCREEN,URINE POSITIVE (NEGATIVE); CLARITY,URINE CLEAR (CLEAR); COLOR,URINE YELLOW (YELLOW); KETONES,URINE NEGATIVE (NEGATIVE); LEUKOCYTE ESTERASE ,URINE NEGATIVE (NEGATIVE); NITRITE,URINE NEGATIVE (NEGATIVE); PHENCYCLIDINE SCREEN,URINE NEGATIVE (NEGATIVE); PROTEIN,URINE DIPSTICK TRACE (NEGATIVE)
[2020-07-16 01:16] LABS: BILIRUBIN,URINE NEGATIVE (NEGATIVE); URINE UROBILINOGEN 0.2 mg/dL (0.2 - 1)
[2020-07-16 01:34] LABS: BACTERIA,URINE MODERATE /HPF; EPITHELIAL CELLS,URINE FEW /LPF; RBC,URINE 21-50 /HPF (0-5)
[2020-07-16 05:33] LABS: BASOPHILS % 0.3 % (0.0-1.0); EOSINOPHILS # (AUTO) 0.2 (0.0-0.4); EOSINOPHILS % 2.7 % (0.0-6.0); HEMATOCRIT 32.7 % (38.2-49.6); HEMOGLOBIN 10.8 g/dL (14.0-18.0); LYMPHOCYTES # (AUTO) 2.5 (1.0-3.2); LYMPHOCYTES % 36.9 % (18.0-39.1); MEAN CORPUSCULAR HEMOGLOBIN 30.7 pg (28-32); MEAN CORPUSCULAR VOLUME 92.9 fL (81-99); MONOCYTES # (AUTO) 0.7 (0.2-0.8); MONOCYTES % 9.9 % (4.4-11.3); NEUTROPHILS # (AUTO) 3.3 (2.1-6.9); PLATELET COUNT 277 x10e3/uL (140-360); RED BLOOD COUNT 3.52 x10e6/uL (4.3-5.7); RED CELL DISTRIBUTION WIDTH 14.6 % (11.7-14.4)
[2020-07-16 05:56] LABS: ALBUMIN 3.3 g/dL (3.5-5.0); ALBUMIN/GLOBULIN RATIO 1.2 (0.8-2.0); ANION GAP 16.4 mmol/L (8-16); CALCIUM 8.6 mg/dL (8.4-10.2); CREATININE, SERUM 1.41 mg/dL (0.72-1.25); POTASSIUM 3.4 mmol/L (3.5-5.1)
--- NOTE | 2020-07-16 07:00 | NUR ---
BEDSIDE SHIFT REPORT RECEIVED PT IN STABLE CONDITION, DENIES PAIN AT THIS TIME, UPDATED ON POC VOICED UNDERSTANDING, CALL LIGHT IN REACH WILL CONTINUE OT MONITOR
[2020-07-16] MEDS ORDERED: IOPAMIDOL 370 MG/ML 200 ML INFUS..BTL INJ ONE (07:14)
[2020-07-16] MEDS ORDERED: SODIUM CHLORIDE 0.9% 50ML 50 ML ONE (07:14)
[2020-07-16] MEDS: INSULIN GLARGINE 100 UNITS/ML VIAL SQ SCH (09:00)
[2020-07-16] MEDS: LISINOPRIL 20 MG TAB PO SCH (09:30)
[2020-07-16] MEDS: PENTOXIFYLLINE 400 MG TAB CR PO SCH ×3 (09:30→23:52)
[2020-07-16] MEDS: POTASSIUM CHLORIDE 10MEQ EA PO SCH ×2 (09:31→17:57)
[2020-07-16] MEDS: AMLODIPINE BESYLATE 5 MG TAB PO SCH ×2 (09:31→17:57)
[2020-07-16] MEDS: ISOSORBIDE MONONITRATE 30 MG TAB CR PO SCH (09:32)
[2020-07-16 10:55] LABS: CREATINE KINASE MB 3.3 ng/mL (0-5.0)
--- NOTE | 2020-07-16 11:30 | NUR ---
spoike with dr candelaria re: insulin new orders given
[2020-07-16] MEDS ORDERED: DEXTROSE 50% SYRINGE 50 ML IV PRN (11:45)
[2020-07-16] MEDS: INSULIN LISPRO 100 UNIT/1 ML 3ML VIAL SQ SCH ×4 (12:00→17:00)
--- NOTE | 2020-07-16 12:25 | NUR ---
paged dr candelaria re: tylenol for pain, pt refused morphine on file.
[2020-07-16] MEDS: ACETAMINOPHEN 325 MG TAB PO PRN (13:17)
[2020-07-16] MEDS: CLOPIDOGREL BISULFATE 75 MG TAB PO SCH (14:07)
--- NOTE | 2020-07-16 14:34 | NUR ---
PULMONARY CONSULT Thanks
[2020-07-16] MEDS ORDERED: CHLOROTHIAZIDE SODIUM 500 MG VIAL IV ONE ×2 (14:45→16:00)
--- NOTE | 2020-07-16 16:45 | Consultation ---
DATE OF CONSULTATION: 07/16/2020 Pulmonary Medicine Consult PRIMARY CARE DOCTOR: Paulino Nava MD. CHIEF COMPLAINT: Shortness of breath. HISTORY OF PRESENT ILLNESS: Mr. Camp is a pleasant 75-year-old gentleman with shortness of breath. The patient with complex cardiac history including CABG years ago. He has had two stents in the heart as recently as the last week. The patient sees Dr. Ferrer. The patient was walking back and forth into the restroom when he started to get very lightheaded and felt like he was going to faint. He came to the hospital. Actually, he did come to the hospital on multiple occasions to emergency room previously, but this time he was admitted. CT angiography demonstrates no PE, but demonstrates pulmonary edema. The patient also has significant leg swelling and he has developed recent leg ulcer on left medial calf over the last 2 weeks. He gives a complex history of getting Lasix in the past and developing bullous pemphigoid therefore, furosemide listed as allergy. He is off diuretics at home. In emergency room, his oxygen saturation 93% on room air. PAST MEDICAL HISTORY: Hypertension, diabetes, history of [place], coronary artery disease status post CABG and stent. The patient with heart catheterization a few years ago showing preserved ejection fraction when the heart catheterization was done with Dr. Rae. He has umbilical hernia and sleep apnea. MEDICATIONS: Medication list reviewed per the chart record. ALLERGIES: FUROSEMIDE ONLY STATED. SOCIAL HISTORY: No smoking. No drinking. No drugs. 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 FAMILY HISTORY: Noncontributory. REVIEW OF SYSTEMS: GENERAL: No weight changes. OPHTHALMOLOGIC: No double vision. ENT: No mouth ulcers. ENDOCRINE: No thyroid disease known. PULMONARY: No asthma. CARDIAC: No heart attacks. GI: No constipation. : No blood in urine. DERMATOLOGIC: No recent generalized rashes. There are stasis changes mild and lymphedema of the legs. NEUROLOGIC: No seizure. OBJECTIVE: VITAL signs reviewed per chart record. Gen NAD, callm to mildly anxious. ent ncat, anicteric. neck supple, midline. lungs limited, decreased a/e mildly, no wheezes. cv no m/r/r. abd mod fullness, semi firm, nt. ext no c/c/3+ leg edema. int min venous stasis changes, lymphedema component, covered calf ulcer left leg Normal LFT profile with albumin 3.3. Furthermore, creatinine was 1.38 with sodium 142, and potassium 3.1. 7.8 white count, 32 hematocrit. IMPRESSION AND PLAN: 1. Pulmonary edema, acute. 2. Hypoxemia, [id number]. 3. Developing leg ulcer. Significant leg edema/lymphedema. 4. Presumed chronic kidney disease. 5. Admit with presyncope. 6. Coronary artery disease, s/p coronary artery bypass graft, myocardial infarction, and stent. 7. Hypertension. 8. Diabetes. 9. Obesity. 10. Sleep apnea. 11. weakness/debility I had an extensive conversation with him and also his . Furosemide family was not favored for use by chief warden. I recommend the patient go back and see them as these medicines will have the best efficacy and lowest risk profile for his issues. However, for here, we will give chlorothiazide diuretic IV here and then we will follow clinically. Electrolytes will be reordered for tomorrow. The patient will need to prevent this wound from opening bigger on the leg. We will order a chest x-ray tomorrow to ensure the pulmonary edema is better. Hopefully, his oxygenation will get better too. The patient will be considered for home oxygen evaluation prior to discharge. Of note, the patient with significant immobility/debility due to shortness of breath and imbalance. He uses an electric scooter outside the house and electric wheelchair in his house. He is recommended for aggressive mobility preservation attempt as much as possible for enhancing quality of life. Thank you very much, Dr. Koenig and Dr. Nava. Please call for questions. MD RESHMA Treviño/SHERMAN /[id number] TOMMY
[2020-07-16 18:12] LABS: CREATINE KINASE MB 2.8 ng/mL (0-5.0)
[2020-07-16] MEDS: ATORVASTATIN 40 MG TAB PO SCH (20:10)
[2020-07-16] MEDS: INSULIN GLARGINE 100 UNITS/ML VIAL SC SCH (20:10)
--- NOTE | 2020-07-16 23:15 | NUR ---
Progress note Subjective The patient is awake, alert, oriented, reports mild shortness of breath, better with oxygen. No fever. Constitutional: No fever no chills HEENT: Denies headache, no ear pain, no nosebleed, no sore throat. Cardiovascular: Denies chest pain, PND, swelling of the legs, palpitations or blackout spells. Respiratory: Reports shortness of breath. Gastrointestinal: Denies nausea, vomiting, diarrhea, hematemesis or melena. Genitourinary: Denies hematuria, frequency or dysuria. Neurologic: Reports lightheadedness. Psych: Denies anxiety or depression Skin: No rash. Hematological system: Denies bleeding, no petechia. Musculoskeletal: No significant deformity or swelling of the joints. Allergy neurology farm assistant: Negative Objective Vital signs BP 150/64, pulse 66, respirations 17, pulse ox 96%, temperature 97.7. Physical exam Constitutional: He is oriented to person, place, and time. He appears well-developed. HEENT: Head: Normocephalic and atraumatic. PERRLA. Cardiovascular: Regular rhythm, no murmurs, no rubs, no gallops. Pulmonary/Chest: Clear bilaterally, no rales, no rhonchi. Abdominal: Soft, nontender, bowel sounds positive and normal. No distention, no guarding, no rebound. Musculoskeletal: Normal range of motion. Extremities: 3+ leg edema, lymphedema, callus ulcer in the left leg, with dressing. Neurological: He is alert and oriented to person, place, and time. Skin: Skin is warm and dry. Psychiatric: He has a normal mood and affect. Medications Humalog 4 units SQ, 20 units SQ, Lantus 40 units SQ, K-Dur 10 mEq p.o., chlorothiazide sodium to 50 mg IV daily, Plavix 75 mg p.o. daily, control 400 mg p.o. 3 times daily, Prinivil 40 mg p.o. daily, isosorbide 30 mg p.o. daily, amlodipine 5 mg twice daily, atorvastatin 40 mg p.o. at bedtime, Tylenol 650 mg p.o. every 4 hours as needed, zolpidem 5 mg p.o. at bedtime, PRN, dextrose 50%, 50 mL PRN IV, morphine sulfate 4 mg every 4 hours as needed IV, ondansetron 4 mg IV every 4 hours as needed. Laboratory Hemoglobin 10.5, hematocrit 32.1. D-dimer 0.68, potassium 3.4, anion gap 16.4, creatinine 1.41, GFR 49, glucose 211, creatinine 205, albumin 3.3, toxicology positive for benzodiazepines, urinalysis blood 1+, RBC 21-50, WBC 6-10, bacteria moderate. COVID-19 PCR pending. Assessment 75-year-old man with past medical history of hypertension, diabetes, history of [place], coronary artery disease status post CABG and stent. Presents to hospital complaining of shortness of breath, lightheadedness, leg swelling, left calf ulcer, denies syncope, fever, chest pain, abdominal pain or diarrhea. CT angiography positive for pulmonary edema. Creatinine 1.38, sodium 142, potassium 3.1, WBC 7.8, hematocrit 32, albumin 3.3. Pulmonary edema, acute Moderate hypoxemia Leg ulcer, leg edema Chronic kidney disease, suspected Presyncope Coronary artery disease, status post coronary artery bypass graft Status post myocardial infarction and stent Hypertension Diabetes Obesity Sleep apnea Weakness/debility Plan Continue home medications BP control Glycemic control Pain control Electrolyte control DVT/GI prophylaxis Diuretics Antibiotics Decadron ID consult Pulmonology consult PT evaluation
[2020-07-17] VITALS (9 sets, daily range): BP systolic 139–162; BP diastolic 60–91
[2020-07-17 06:18] LABS: ALBUMIN 3.5 g/dL (3.5-5.0); ALBUMIN/GLOBULIN RATIO 1.2 (0.8-2.0); CALCIUM 8.7 mg/dL (8.4-10.2); CREATININE, SERUM 1.24 mg/dL (0.72-1.25); MAGNESIUM 1.9 MG/DL (1.3-2.1)
--- NOTE | 2020-07-17 07:00 | NUR ---
BEDSIDE SHIFT REPORT RECEIVED FROM RETAIL BRANCH MANAGER RN. PT DENIES NEEDS AT THIS TIME.
--- NOTE | 2020-07-17 07:54 | Diagnostic Imaging Report ---
EXAMINATION: CHEST SINGLE (PORTABLE) INDICATION: CHF COMPARISON: Chest CT 07/15/2020, chest x-ray 07/13/2020 FINDINGS: TUBES and LINES: None. LUNGS: Normal lung volumes. Lungs are clear. Prominent central pulmonary vasculature. PLEURA: No pleural effusion or pneumothorax. HEART AND MEDIASTINUM: Cardiac size is mildly enlarged. Aortic calcifications. BONES AND SOFT TISSUES: No acute osseous lesion. Soft tissues are unremarkable. Loop recorder. Sternotomy wires. UPPER ABDOMEN: No free air under the diaphragm. IMPRESSION: Mild cardiomegaly and pulmonary vascular congestion. Signed by: Damon Osman DO on 07/17/2020 7:51 AM
[2020-07-17] MEDS: CLOPIDOGREL BISULFATE 75 MG TAB PO SCH (08:21)
[2020-07-17] MEDS: CHLOROTHIAZIDE SODIUM 500 MG VIAL IV SCH (08:21)
[2020-07-17] MEDS: AMLODIPINE BESYLATE 5 MG TAB PO SCH ×2 (08:21→17:51)
[2020-07-17] MEDS: ISOSORBIDE MONONITRATE 30 MG TAB CR PO SCH (08:21)
[2020-07-17] MEDS: PENTOXIFYLLINE 400 MG TAB CR PO SCH ×3 (08:21→21:00)
[2020-07-17] MEDS: LISINOPRIL 20 MG TAB PO SCH (08:21)
[2020-07-17] MEDS: POTASSIUM CHLORIDE 10MEQ EA PO SCH ×2 (08:22→22:22)
[2020-07-17] MEDS: INSULIN LISPRO 100 UNIT/1 ML 3ML VIAL SQ SCH ×7 (08:24→21:00)
[2020-07-17] MEDS: INSULIN GLARGINE 100 UNITS/ML VIAL SQ SCH (08:24)
--- NOTE | 2020-07-17 10:23 | Progress Note ---
DATE: SUBJECTIVE: The patient is complaining of some difficulty sleeping. He is using his BiPAP at night. He also complains his lymphedema that is not improving with the diuretics. PHYSICAL EXAMINATION: VITAL SIGNS: The patient is afebrile. The blood pressure is 157/75. The pulse is 82. Saturation is 97%. HEENT: No facial swelling or erythema. LYMPHATIC: No submandibular, cervical, or supraclavicular adenopathy. CARDIAC: Regular rate and rhythm with normal S1, S2. LUNGS: Auscultation of lungs reveals decreased breath sounds at the bases. There is no wheezing. ABDOMEN: Soft, nontender. There is no rebound or guarding. EXTREMITIES: 2 to 3+ lymphedema. There are some skin changes consistent with chronic lymphedema. LABORATORY DATA: White blood cell count is 6.6, hemoglobin is 10.8, and the platelet count is 377. BUN to creatinine ratio is 18 and 1.24. Other electrolytes within normal limits. Potassium is 3.0. IMPRESSION: 1. Acute on chronic diastolic heart failure. 2. Chronic lymphedema. 3. Peripheral vascular disease. 4. Leg ulceration. 5. Diabetes. 6. Sleep apnea. PLAN: 1. Continue current diuretic regimen. 2. Cardiology to evaluate patient. 3. Wound care consultation for lymphedema. 4. Continue CPAP at night. 5. Ambien as needed at night. Siomne Campo MD [facility]/TIAGOL /[id number]
[2020-07-17] MEDS: ACETAMINOPHEN 325 MG TAB PO PRN (13:31)
--- NOTE | 2020-07-17 14:08 | NUR ---
WOUND CARE CONSULT 75 YO MALE HX OF ANGINA /HYPOXIA BRENDA 0N MODERATE PUP STATUS AND INTERVENTIONS ON VISCO MATTRESS LABS: WBC- 6.64 HGB- 10.8 GLUCOSE-147 SKIN ASSESSMENT COMPLETE PATIENT PRESENTS WITH LEFT POSTERIOR LOWER LEG PARTIAL THICKNESS WOUND 1CM X1CM X0.1CM PATIENT REPORTS ITS A NON HEALING AREA CAUSED BY SCRAPING ON HIS WHEEL CHAIR PATIENT HAS CHRONIC SWELLING OF BILATERAL LE AND USES COMPRESSION STOCKINGS PART OF HIS DAILY REGIMEN WHICH WAS DISRUPTED BY HIM RECENTLY HAVING STENT PLACEMENT MY RECOMMENDATION IS FOR PATIENT TO INCORPORATE LIGHT COMPRESSION WITH COLLAGEN APPLICATIONS TO LEFT LOWER LEG PARTIAL THICKNESS WOUND AND WHEN FLUID BALANCE ACHIEVED TO REINCORPORATE HIS USUAL COMPRESSION GARMENTS RECOMMENDATIONS: NURSING TO CONTINUE TO MONITOR PATIENT AND KEEP SKIN CLEAN AND FREE FROM LOOSE STOOL OR IRRITATING MOISTURE AND CONTINUE TO FOLLOW MODERATE PUP INTERVENTIONS NURSING TO CONTINUE TO GET PATIENT OUT OF BED FOR MEALS AND MUCH TOLERATED NURSING TO CLEAN LEFT POSTERIOR LEG PARTIAL THICKNESS WOUND WITH NORMAL SALINE DAILY AND APPLY PURACOL PLUS (COLLAGEN WITH SILVER) AND COVER WITH ALLEVYN FOAM DRESSING Addendum: 07/17/20 at 1419 by Aydin Dan RN Amended: Links added.
--- NOTE | 2020-07-17 14:29 | Consultation ---
DATE OF CONSULTATION: Cardiology Consultation REASON FOR CONSULTATION: Syncope. HISTORY OF PRESENT ILLNESS: This is a 75-year-old man, well known to our service, has history of hypertension; hyperlipidemia; obesity; diastolic heart failure; lymphedema; coronary artery disease, status post recent percutaneous coronary intervention; and past history of coronary artery bypass graft surgery, presented to the emergency department with near syncope. The patient states that he was in the restroom, then ambulated, got into his wheelchair, went into his study, sat down and started feeling faint, and he had paresthesias and left arm shaking. His symptoms occurred spontaneously, lasted for a couple of minutes, associated with severe weakness, which prompted him to seek medical attention. The patient has no chest pain and his chronic shortness of breath is at baseline. REVIEW OF SYSTEMS: Twelve-point review of system was conducted, is negative except as stated above in the HPI. PAST MEDICAL HISTORY: As stated above in the HPI. PAST SURGICAL HISTORY: As stated above in the HPI. PAST FAMILY HISTORY: Noncontributory to the current illness. SOCIAL HISTORY: No illicit drug, alcohol, or tobacco use. ALLERGIES: FUROSEMIDE. MEDICATIONS: See medications reconciliation form. PHYSICAL EXAMINATION: VITAL SIGNS: Temperature is 98.2, heart rate 69, respirations 18, blood pressure is 167/69, and oxygen saturation is 98% on room air. GENERAL: Well-appearing elderly man, in no apparent distress, alert and oriented x3. HEAD: Normocephalic, atraumatic. EYES: Extraocular muscles are intact. Conjunctivae are clear. NECK: No JVD. No bruits. CARDIOVASCULAR: Regular rate and rhythm. LUNGS: Diminished breath sounds at the bases. ABDOMEN: Obese, soft, nontender. EXTREMITIES: Significant pitting edema. Lymphedema changes present. NEUROLOGIC: No focal deficits noted. CARDIOVASCULAR MEDICATIONS: All cardiovascular medications reviewed. IMPRESSION: 1. Near-syncope. 2. Hypertension. 3. Hyperlipidemia. 4. Morbid obesity. 5. Chronic lymphedema. 6. Coronary artery disease, status post coronary bypass graft surgery and percutaneous coronary intervention. RECOMMENDATIONS: The patient's echocardiogram is reviewed and shows normal left ventricular ejection fraction, no significant valvular abnormalities. The patient's symptoms are atypical. The patient has no chest pain and his cardiac troponins are within normal limits. No further cardiovascular workup is required at this point in time. The patient may be discharged from a cardiovascular standpoint with outpatient followup. DO ALEXANDER Montero/SHERMAN /[id number]
[2020-07-17] MEDS ORDERED: POTASSIUM CHLORIDE 10MEQ EA PO ONE (14:30)
--- NOTE | 2020-07-17 17:06 | NUR ---
RECEIVED REPORT FROM MADELINE GIPSON. PATIENT ARRIVED TO THE UNIT @ 8709. PATIENT IN STABLE CONDITION, NO S/S OF DISTRESS NOTED. TELEMETRY APPLIED. IV SITE ASYMPTOMATIC AND PATENT, TRANSPARENT DRESSING C/D/I. DRESSING NOTED TO THE LEFT POSTERIOR CALF DRESSING C/D/I. BED IN LOWEST POSITION AND LOCKED, SIDE RIALS X 2, NONSKID SOCKS APPLIED. CALL LIGHT WITHIN REACH.
--- NOTE | 2020-07-17 19:15 | NUR ---
COMPLETED BEDSIDE SHIFT REPORT AND ROUNDING WITH ONCOMING NIGHT NURSE. PATIENT IN STABLE CONDITION, NO S/S OF DISTRESS NOTED. TELEMETRY APPLIED. IV SITE, ASYMPTOMATIC AND PATENT, TRANSPARENT DRESSING C/D/I. BED IN LOWEST POSITION AND LOCKED, SIDE RAILS X 2, NONSKID SOCKS APPLIED. CALL LIGHT WITHIN REACH.
--- NOTE | 2020-07-17 19:15 | NUR ---
patient received awake, alert, lying quietly in bed. 02//nc in use. no c/o pain noted at this time. patient instructed to call for assistance when needed.
--- NOTE | 2020-07-17 19:47 | Progress Note ---
DATE: 07/17/2020 Cardiology Progress Note SUBJECTIVE: The patient denies chest pain, but does have chronic shortness of breath. OBJECTIVE: VITAL SIGNS: Temperature 97.2 degrees, pulse 79, respiratory rate 19, blood pressure 150/66, and oxygen saturation 99% on 2 L nasal cannula. GENERAL: Elderly man, no acute distress, awake and alert. LUNGS: Clear to auscultation bilaterally. No wheezes or crackles. CARDIOVASCULAR: Normal rate. Regular rhythm. Normal S1 and S2. ABDOMEN: Soft and nontender. EXTREMITIES: Lymphedema is present. CHRONIC MEDICATIONS: Chlorothiazide 250 mg IV daily, Plavix 75 mg p.o. daily, lisinopril 40 mg p.o. daily, isosorbide mononitrate 30 mg p.o. daily, amlodipine 5 mg p.o. b.i.d., and furosemide 40 mg p.o. at bedtime. LABORATORY DATA: Sodium 139, potassium 3, chloride 102, CO2 26, BUN 18, and creatinine 1.24. Telemetry was personally reviewed and interpreted, revealing normal sinus rhythm. IMPRESSION: 1. Near-syncope. 2. Coronary artery disease, status post coronary artery bypass grafting and recent percutaneous coronary intervention. 3. Hypertension. 4. Hyperlipidemia. 5. Morbid obesity. 6. Chronic lymphedema. RECOMMENDATIONS: The patient's echocardiogram showed normal LVEF without significant valvular abnormalities. He has ruled out for myocardial infarction with serial cardiac biomarkers. Recent cardiac catheterization did not reveal significant stenosis remaining to revascularize. No further cardiac evaluation is indicated at this time. Carotid Doppler done last year did not reveal hemodynamically significant stenosis. Monitor the patient on telemetry while admitted. He may be discharged home from a cardiac standpoint. He was instructed to follow up with Dr. Ferrer in 2 weeks. Continue IV chlorothiazide while admitted given his finding of pulmonary vascular congestion on chest x-ray. Replete electrolytes. Thank you for this consult. We will continue to follow. Wendy Banda MD [facility] /[id number]
[2020-07-17] MEDS: INSULIN GLARGINE 100 UNITS/ML VIAL SC SCH (21:00)
[2020-07-17] MEDS ORDERED: ZOLPIDEM TARTRATE 5 MG TAB PO PRN (21:00)
[2020-07-17] MEDS: ATORVASTATIN 40 MG TAB PO SCH (21:00)
--- NOTE | 2020-07-17 22:00 | NUR ---
patient oob to bathroom with walker with assistance. patient refuses bed alarm at this time. Patient states, " I don't need that crazy thing on. It makes way to much noise. " Patient instructed to continue to call for assistance when getting oob.
--- NOTE | 2020-07-17 22:43 | Consultation ---
DATE OF CONSULTATION: 07/17/2020 Initial Nephrology Consultation REASON FOR CONSULTATION: Edema, renal insufficiency. HISTORY OF PRESENT ILLNESS: Mr. Simone Camp is a 75-year-old male who presented to the hospital because of some episode of nearly passing out earlier syncope. The patient has had a cardiac catheterization and also coronary stents placed 2 to 3 weeks ago. I am being asked to see him because of his edema especially of the legs and also for his serum creatinine. When he presented, his serum creatinine was about 1.41 today, it is about 1.28 and the patient has significant edema of the legs and it is reported the patient is allergic to Lasix. PAST MEDICAL HISTORY: 1. The patient has a history of diabetes for several years. He does not know for how long. 2. Coronary artery disease. 3. Hypertension. 4. Myocardial infarction in the past. 5. Sleep apnea. PAST SURGICAL HISTORY: He has had coronary stents placed in 1981. He has also had umbilical hernia surgery. REVIEW OF SYSTEMS: As per HPI. Just falling and also some episode of near syncope. No indigestion. No shortness of breath at this time. MEDICATIONS: At the present time, the patient is on Tylenol, insulin, IV daily, Plavix, Trental, lisinopril, Imdur, Norvasc, insulin. PHYSICAL EXAMINATION: VITAL SIGNS: Blood pressure is 150/66, pulse 79, respirations 19. GENERAL: The patient is morbidly obese. HEENT: No increased JVD. CARDIOVASCULAR: Regular rhythm. LUNGS: Decreased breath sounds. ABDOMEN: This is distended. EXTREMITIES: 3+ edema of both legs. LABORATORY RESULTS: Urinalysis shows trace to 1+ protein, also shows 20 to 40 red cells and 20 to 40 white cells. Hemoglobin and hematocrit 10.8 and 32.7 respectively. Sodium 139, potassium 3, chloride 102, bicarbonate 26, BUN and creatinine 18 and 1.24 respectively. Phosphorus 3.0, calcium 8.7. IMPRESSION AND PLAN: 1. Acute kidney injury superimposed on chronic kidney disease. 2. Chronic kidney disease. 3. Hypokalemia. 4. Edema. 5. Rule out proteinuria. 6. Allergy to loop diuretics per patient. PLAN: At the present time, the patient has a significant edema. His albumin is 3.5, however, it is not really that low. He has trace protein. It looks like he is not having that much proteinuria to account for this much swelling, but nonetheless, I will go ahead and order a 24-hour urine collection for protein-creatinine and creatinine clearance. He is allergic to Lasix, so he will based loop diuretics. I will start him on 50 mg IV q.12 hours. He is getting Diuril IV also. I will check a renal ultrasound on the patient. We will replace his potassium. I will follow the patient with you. Thank you, Dr. Koenig for this consultation. Ather MD MARINA Greenberg/SHERMAN /[id number]
[2020-07-18] VITALS (7 sets, daily range): BP systolic 129–166; BP diastolic 55–69
[2020-07-18] MEDS: ISOSORBIDE MONONITRATE 30 MG TAB CR PO SCH (08:14)
[2020-07-18] MEDS: POTASSIUM CHLORIDE 10MEQ EA PO SCH (08:15)
[2020-07-18] MEDS: AMLODIPINE BESYLATE 5 MG TAB PO SCH ×2 (08:15→16:41)
[2020-07-18] MEDS: CLOPIDOGREL BISULFATE 75 MG TAB PO SCH (08:15)
[2020-07-18] MEDS: PENTOXIFYLLINE 400 MG TAB CR PO SCH ×3 (08:16→21:26)
[2020-07-18] MEDS: LISINOPRIL 20 MG TAB PO SCH (08:16)
--- NOTE | 2020-07-18 08:17 | NUR ---
Progress note Internal medicine DATE OF SERVICE: 07/17/2020 Subjective The patient is awake, alert, oriented, reports mild shortness of breath, insomnia, using BiPAP at night. No fever. Constitutional: No fever no chills HEENT: Denies headache, no ear pain, no nosebleed, no sore throat. Cardiovascular: Denies chest pain, PND, swelling of the legs, palpitations or blackout spells. Respiratory: Reports mild shortness of breath. Gastrointestinal: Denies nausea, vomiting, diarrhea, hematemesis or melena. Genitourinary: Denies hematuria, frequency or dysuria. Neurologic: Reports lightheadedness. Psych: Insomnia. Skin: No rash. Hematological system: Denies bleeding, no petechia. Musculoskeletal: No significant deformity or swelling of the joints. 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 Physical exam Constitutional: He is oriented to person, place, and time. He appears well-developed. HEENT: Head: Normocephalic and atraumatic. PERRLA. Cardiovascular: Regular rhythm, no murmurs, no rubs, no gallops. Pulmonary/Chest: Decreased breathing sounds. No rales, no wheezing. Abdominal: Soft, nontender, bowel sounds positive and normal. No distention, no guarding, no rebound. Musculoskeletal: Normal range of motion. Extremities: 3+ leg edema, lymphedema, callus ulcer in the left leg, with dressing. Neurological: He is alert and oriented to person, place, and time. Skin: Skin is warm and dry. Psychiatric: He has a normal mood and affect. Medications Humalog 4 units SQ, 20 units SQ, Lantus 40 units SQ, K-Dur 10 mEq p.o., chlorothiazide sodium to 50 mg IV daily, Plavix 75 mg p.o. daily, control 400 mg p.o. 3 times daily, Prinivil 40 mg p.o. daily, isosorbide 30 mg p.o. daily, amlodipine 5 mg twice daily, atorvastatin 40 mg p.o. at bedtime, Tylenol 650 mg p.o. every 4 hours as needed, zolpidem 5 mg p.o. at bedtime, PRN, dextrose 50%, 50 mL PRN IV, morphine sulfate 4 mg every 4 hours as needed IV, ondansetron 4 mg IV every 4 hours as needed. Laboratory WBC 6.6, hemoglobin 10.8, platelet count 377, BUN to creatinine ratio 18/1.24. Potassium 3.0. Assessment 75-year-old man with past medical history of hypertension, diabetes, history of [place], coronary artery disease status post CABG and stent. Presents to hospital complaining of shortness of breath, lightheadedness, leg swelling, left calf ulcer, denies syncope, fever, chest pain, abdominal pain or diarrhea. CT angiography positive for pulmonary edema. Creatinine 1.38, sodium 142, potassium 3.1, WBC 7.8, hematocrit 32, albumin 3.3. Pulmonary edema, acute Acute on chronic diastolic heart failure Moderate hypoxemia Leg ulcer, leg edema Chronic lymphedema Chronic kidney disease, suspected Presyncope Coronary artery disease, status post coronary artery bypass graft Status post myocardial infarction and stent Hypertension Diabetes Obesity Sleep apnea Weakness/debility 07/17/2020 Stable vital signs. Echocardiogram: Normal left ventricular ejection fraction, no significant valvular abnormalities. Troponins normal. Cleared by cardiology. The patient continues with significant edema. Albumin 3.5. Patient is allergic to Lasix. We will continue with loop diuretics. Start Diuril IV, as per nephrology. We will obtain 24-hour protein/creatinine and creatinine clearance. Continue with wound care, CPAP at night, continue current medications. Plan Continue home medications BP control Glycemic control Pain control Electrolyte control DVT/GI prophylaxis Diuretics Antibiotics Anxiolytics Decadron ID consult noted Cardiology consult noted Pulmonology consult noted Nephrology consult noted PT
[2020-07-18] MEDS: INSULIN LISPRO 100 UNIT/1 ML 3ML VIAL SQ SCH ×7 (09:38→21:33)
[2020-07-18] MEDS: INSULIN GLARGINE 100 UNITS/ML VIAL SQ SCH (09:38)
[2020-07-18] MEDS ORDERED: ETHACRYNATE SODIUM 50 MG VIAL IV SCH (13:00)
--- NOTE | 2020-07-18 13:27 | Progress Note ---
DATE: 07/18/2020 Renal Progress Note SUBJECTIVE: Events over the past 24 hours have been noted. Of note, I had written some orders yesterday on the patient but those orders were overlooked and they were not carried out yesterday, so the orders which I wrote yesterday are actually just being entered into the computer today. The patient has no complaints. He still has the swelling of the legs. PHYSICAL EXAMINATION: VITAL SIGNS: Blood pressure 129/55, pulse 72, and respirations 18. GENERAL: The patient is morbidly obese. HEENT: No increased JVD. CARDIOVASCULAR: Regular rhythm. LUNGS: Decreased breath sounds. ABDOMEN: The patient is morbidly obese. EXTREMITIES: The patient has 3+ edema of the legs. They are wrapped. LABORATORY RESULTS: No new labs from today. IMPRESSION AND PLAN: 1. Acute kidney injury superimposed on chronic kidney disease. 2. Hypokalemia. 3. Edema. 4. Rule out proteinuria. 5. Allergy to loop diuretics per the patient. I had ordered ethacrynic acid yesterday to be given, however, he did not get a dose yesterday because those orders were overlapped. We will go ahead and order the ethacrynic acid today IV. His potassium will be replaced. I will order a 24-hour urine collection for protein creatinine, creatinine clearance, and also a renal ultrasound. I will have his labs checked again tomorrow. I am hoping that after maybe one or two days of IV ethacrynic acid we can switch him over to p.o. Ather MD MARINA Greenberg/SHERMAN /[id number]
--- NOTE | 2020-07-18 14:26 | Diagnostic Imaging Report ---
EXAM: Renal Ultrasound INDICATION: Angina. Hypoxia. Renal failure. COMPARISON: None TECHNIQUE: Transverse and longitudinal images of the kidneys and bladder were obtained. FINDINGS: Limited due to patient body habitus. Right Kidney: Length: 11.3 cm Appearance: Normal echogenicity. Collecting system: No hydronephrosis Stones: None Cyst/Mass: There is a exophytic cyst measuring up to 5.3 cm with small internal septations. Left Kidney: Length: 11.0 cm Appearance: Normal echogenicity. Collecting system: No hydronephrosis Stones: None Cyst/Mass: There is a simple appearing exophytic cyst measuring up to 6.5 cm. Bladder: Decompressed limiting evaluation. IMPRESSION: 1. Negative for hydronephrosis or perinephric fluid collection. 2. Right mildly complex cyst with internal septation measuring up to 5.3 cm. 3. Simple appearing left anechoic cyst measuring up to 6.5 cm. Consider follow-up renal protocol CT or MRI when clinically feasible for further evaluation. Signed by: Jarad Chowdhury MD on 07/18/2020 2:22 PM
[2020-07-18] MEDS: CHLOROTHIAZIDE SODIUM 500 MG VIAL IV SCH (14:32)
--- NOTE | 2020-07-18 15:29 | Progress Note ---
DATE: 07/18/2020 Cardiology Progress Note SUBJECTIVE: The patient denies chest pain, but he does report dyspnea on exertion. OBJECTIVE: VITAL SIGNS: Temperature 97.5 degrees, pulse 78, respiratory rate 20, blood pressure 136/66, and oxygen saturation 100% on 2 L nasal cannula. GENERAL: Elderly man, in no acute distress. Awake and alert. LUNGS: Clear to auscultation bilaterally. No wheezes or crackles. CARDIOVASCULAR: Normal rate. Regular rhythm. No murmur. Normal S1 and S2. ABDOMEN: Soft and nontender. EXTREMITIES: Lymphedema is present. CARDIAC MEDICATIONS: Lisinopril 40 mg p.o. daily, Plavix 75 mg p.o. daily, amlodipine 5 mg p.o. b.i.d., isosorbide mononitrate 30 mg p.o. daily, atorvastatin 40 mg p.o. at bedtime, chlorothiazide 250 mg IV daily, Decanoate sodium 50 mg IV q.12 hours. LABORATORY DATA: None today. Telemetry was personally reviewed and interpreted, revealing normal sinus rhythm. IMPRESSION: 1. Near syncope. 2. Coronary artery disease, status post coronary artery bypass grafting and recent percutaneous coronary intervention. 3. Hypertension. 4. Hyperlipidemia. 5. Morbid obesity. 6. Chronic lymphedema. 7. Chronic kidney disease. RECOMMENDATIONS: The patient's echocardiogram showed normal LVEF without significant valvular abnormalities. He ruled out for myocardial infarction with serial cardiac biomarkers. Recent cardiac catheterization did not reveal significant stenosis remaining to revascularize. No further cardiac evaluation is indicated at this time. Carotid Doppler was done last year, which did not reveal significant stenosis. . Monitor the patient on telemetry while admitted. No arrhythmias have been seen. No addition of sodium by Nephrology. Diuresis per Renal given chronic kidney disease and Lasix allergy. Monitor creatinine. Replete electrolytes. Thank you for this consult. We will continue to follow. Wendy Banda MD ABS/MODL /[id number]
[2020-07-18] MEDS ORDERED: POTASSIUM CHLORIDE 10MEQ EA PO SCH (17:00)
[2020-07-18] MEDS: ATORVASTATIN 40 MG TAB PO SCH (21:26)
[2020-07-18] MEDS: INSULIN GLARGINE 100 UNITS/ML VIAL SC SCH (21:34)
--- NOTE | 2020-07-18 22:00 | NUR ---
PATIENT REFUSED BED ALARM ON. HE STATES THAT HE DON'T NEED IT AND THAT HE WILL BE ALRIGHT. COMPLAINS THAT BED ALARM MAKES TOO MUCH NOISE. CALL LIGHT WITHIN REACHED AND ENCOURAGED TO USE.
[2020-07-19] VITALS (8 sets, daily range): BP systolic 108–154; BP diastolic 49–69
--- NOTE | 2020-07-19 00:18 | NUR ---
Progress note Date of service: 07/18/2020 SUBJECTIVE Events noted. The patient is awake, alert, mild swelling of the legs. No new complaints. Denies chest pain, no shortness of breath, no vomiting, no nausea no vomiting no diarrhea no fever no chills. ROS General: Denies fever chills Cardia vascular: No CP, no edema Respiratory: No SOB, no cough, no hemoptysis GI: Denies nausea, no vomiting, no diarrhea no hematemesis no Genitourinary: No dysuria, hematuria, no incontinence. No Tan catheter. Neuro: No focal weakness. Alert oriented x3 Psychiatrist: No anxiety Objective: Physical exam: Patient was in no distress. Elderly patient with morbid obesity. BP 136/65, temperature 97.5, respiratory 19, pulse 76, pulse ox 100% on 2 L nasal cannula. HEENT: No gross abnormalities noted. Neck: Supple no JVD Lungs: Decreased breathing sounds. Heart: Regular rate and rhythm no murmurs no gallops Abdomen: Soft nontender, no organomegaly, bowel sounds present. Extremities: No cyanosis, clubbing or edema Neuro: No Patient alert oriented 3 Musculoskeletal: Lymphedema of the lower extremities. Psych: Normal mood No laboratory data to review. Medications Humalog 4 units SQ, 20 units SQ, Lantus 40 units SQ, K-Dur 10 mEq p.o., chlorothiazide sodium to 50 mg IV daily, Plavix 75 mg p.o. daily, control 400 mg p.o. 3 times daily, Prinivil 40 mg p.o. daily, isosorbide 30 mg p.o. daily, amlodipine 5 mg twice daily, atorvastatin 40 mg p.o. at bedtime, Tylenol 650 mg p.o. every 4 hours as needed, zolpidem 5 mg p.o. at bedtime, PRN, dextrose 50%, 50 mL PRN IV, morphine sulfate 4 mg every 4 hours as needed IV, ondansetron 4 mg IV every 4 hours as needed. Assessment 75-year-old man with past medical history of hypertension, diabetes, history of [place], coronary artery disease status post CABG and stent. Presents to hospital complaining of shortness of breath, lightheadedness, leg swelling, left calf ulcer, denies syncope, fever, chest pain, abdominal pain or diarrhea. CT angiography positive for pulmonary edema. Creatinine 1.38, sodium 142, potassium 3.1, WBC 7.8, hematocrit 32, albumin 3.3. Pulmonary edema, acute Acute on chronic diastolic heart failure Moderate hypoxemia Leg ulcer, leg edema Chronic lymphedema Chronic kidney disease, suspected Presyncope Coronary artery disease, status post coronary artery bypass graft Status post myocardial infarction and stent Hypertension Diabetes Obesity Sleep apnea Weakness/debility 07/17/2020 Stable vital signs. Echocardiogram: Normal left ventricular ejection fraction, no significant valvular abnormalities. Troponins normal. Cleared by cardiology. The patient continues with significant edema. Albumin 3.5. Patient is allergic to Lasix. We will continue with loop diuretics. Start Diuril IV, as per nephrology. We will obtain 24-hour protein/creatinine and creatinine clearance. Continue with wound care, CPAP at night, continue current medications. 07/18/2020 Stable vital signs. We will continue present care with diuretics, ethacrynic acid IV, replace potassium, monitor renal function and electrolytes, follow-up with renal ultrasound. Plan Continue home medications BP control Glycemic control Pain control Electrolyte control DVT/GI prophylaxis Diuretics Antibiotics Anxiolytics Decadron ID consult noted Cardiology consult noted Nephrology consult noted
[2020-07-19] MEDS: INSULIN LISPRO 100 UNIT/1 ML 3ML VIAL SQ SCH ×7 (07:30→21:00)
[2020-07-19] MEDS: AMLODIPINE BESYLATE 5 MG TAB PO SCH ×2 (08:25→16:02)
[2020-07-19] MEDS: ISOSORBIDE MONONITRATE 30 MG TAB CR PO SCH (08:25)
[2020-07-19] MEDS: POTASSIUM CHLORIDE 10MEQ EA PO SCH (08:25)
[2020-07-19] MEDS: CLOPIDOGREL BISULFATE 75 MG TAB PO SCH (08:26)
[2020-07-19] MEDS: LISINOPRIL 20 MG TAB PO SCH (08:26)
[2020-07-19] MEDS: PENTOXIFYLLINE 400 MG TAB CR PO SCH ×3 (08:27→21:00)
[2020-07-19] MEDS: INSULIN GLARGINE 100 UNITS/ML VIAL SQ SCH (09:00)
[2020-07-19] MEDS: CHLOROTHIAZIDE SODIUM 500 MG VIAL IV SCH (09:07)
--- NOTE | 2020-07-19 12:28 | NUR ---
WOUND CARE FOLLOW UP TO CHECK 1 DAY POST APPLICATION OF TUBIGRIP COMPRESSION BILATERAL LE . BILATERAL LE TUBIGRIP IN PLACE AND UN ROLLED PATIENT FREE OF COMPLAINTS OF PAIN OR SOB R/T FLUID SHIFT Addendum: 07/19/20 at 1231 by Aydin Dan RN Amended: Links added.
--- NOTE | 2020-07-19 13:33 | Progress Note ---
DATE: SUBJECTIVE: The patient is off oxygen now. He is not complaining of dyspnea. He is undergoing a 24-hour urine collection. PHYSICAL EXAMINATION: VITAL SIGNS: Blood pressure is 131/55, saturation is 100%. The pulse is 72 and respiratory rate is 18. HEENT: Shows no facial swelling or erythema. LYMPHATIC: Shows no submandibular, cervical, or supraclavicular adenopathy. CARDIAC: Reveals regular rate and rhythm with normal S1 and S2. LUNGS: Auscultation of lungs reveals rhonchorous breath sounds bilaterally. There is no wheezing. ABDOMEN: Soft and nontender. There is no rebound or guarding. EXTREMITIES: Shows 2 to 3+ leg edema bilaterally. IMPRESSION: 1. Wwiqi-[id number] diastolic heart failure. 2. Chronic lymphedema. 3. Peripheral vascular disease. 4. Diabetes. 5. Sleep apnea. PLAN: 1. Continue current diuretics. 2. Continue wound care. 3. Monitor and control blood sugars. 4. Await further input from Cardiology. 5. Await completion of 24-hour urine. Simone Campo MD Adis/MODL /[id number]
[2020-07-19] MEDS: ACETAMINOPHEN 325 MG TAB PO PRN (16:03)
[2020-07-19 17:06] LABS: CREATININE,URINE RANDOM 83.34 mg/dL (63-166); TOTAL PROTEIN 24HR, URINE 220.3 mg/24hr (50-100); TOTAL PROTEIN, URINE 11.3 mg/dL (1-14)
--- NOTE | 2020-07-19 17:10 | Progress Note ---
DATE: 07/19/2020 Renal Progress Note SUBJECTIVE: Events over the past 24 hours have been noted. The patient has no chest pain or shortness of breath. The patient still has not gotten any ethacrynic acid yet. It has been notified by the pharmacy that there is a very vague garcia discrepancy between the IV form and the p.o. form. PHYSICAL EXAMINATION: GENERAL: The patient is morbidly obese. HEENT: No increased JVD. CARDIOVASCULAR: Regular rate and rhythm. LUNGS: Decreased breath sounds at the bases bilaterally. ABDOMEN: Positive bowel sounds. EXTREMITIES: The patient has 3 to 4+ edema of the legs. The legs are wrapped. LABORATORY RESULTS: There are no new labs from today. IMPRESSION: 1. Acute kidney injury superimposed on chronic kidney disease. 2. Edema. 3. Rule out proteinuria. PLAN: The ethacrynic acid, there is a big garcia difference between the p.o. and IV formulation, even though I had originally ordered intravenous. Because of this garcia difference. I will go ahead and use the p.o. formulation. He will get the 1st dose 50 mg p.o. now and then he will get another one before bedtime. He has undergone a 24-hour urine collection for protein creatinine, creatinine clearance, and this will be later this afternoon. Probably I will have his labs checked again tomorrow. If the labs are stable tomorrow, he likely can go home and then I can follow him up as an outpatient with the results of the 24-hour urine collection and also assessing how he does with the ethacrynic acid. Actually what I will do is I will go ahead and discontinue the Diuril and just put him on hydrochlorothiazide 12.5 mg p.o. daily. Ather MD MARINA Greenberg/SHERMAN /[id number]
--- NOTE | 2020-07-19 18:40 | Progress Note ---
DATE: 07/19/2020 Cardiology Progress Note SUBJECTIVE: The patient denies chest pain. He does report dyspnea on exertion. He is currently getting 24-hour urine collection. OBJECTIVE: VITAL SIGNS: Temperature 97.6 degrees, pulse 72, respiratory rate 18, blood pressure 131/55, oxygen saturation 100% on room air. GENERAL: Elderly man, in no acute distress. Awake and alert. LUNGS: Clear to auscultation bilaterally. No wheezes or crackles. CARDIOVASCULAR: Normal rate. Regular rhythm. No murmur. Normal S1 and S2. ABDOMEN: Soft and nontender. EXTREMITIES: Lymphedema is present. CARDIAC MEDICATIONS: Plavix 75 mg p.o. daily, Lexapro 40 mg p.o. daily, isosorbide mononitrate 30 mg p.o. daily, amlodipine 5 mg p.o. b.i.d., atorvastatin 40 mg p.o. at bedtime. LABS: None today. TELEMETRY: Telemetry was personally reviewed and interpreted, revealing normal sinus rhythm. IMPRESSION: 1. Near syncope. 2. Coronary artery disease status post coronary artery bypass grafting and recent percutaneous coronary intervention. 3. Hypertension. 4. Hyperlipidemia. 5. Morbid obesity. 6. Chronic lymphedema. 7. Chronic kidney disease. RECOMMENDATIONS: The patient's echocardiogram showed normal LVEF without significant valvular abnormalities. He is ruled out for myocardial infarction with serial cardiac biomarkers. Recent cardiac catheterization did not reveal significant stenosis remaining to revascularize. No further cardiac evaluation is indicated at this time. Carotid Doppler was done last year which did not reveal hemodynamically significant stenosis. Monitor the patient on telemetry while admitted. No arrhythmias have been seen. Diuresis per Nephrology given chronic kidney disease and Lasix allergy. Monitor creatinine. Replete electrolytes. Thank you for this consult. We will continue to follow. Wendy Banda MD ABS/MODL /[id number]
--- NOTE | 2020-07-19 19:44 | NUR ---
Received change of shift report from AM nurse. Walking rounds completed
[2020-07-19] MEDS: ATORVASTATIN 40 MG TAB PO SCH (21:00)
[2020-07-19] MEDS: INSULIN GLARGINE 100 UNITS/ML VIAL SC SCH (21:00)
[2020-07-19] MEDS ORDERED: ETHACRYNIC ACID 25 MG TABLET PO SCH (21:00)
[2020-07-20] VITALS: BP 135/53
--- NOTE | 2020-07-20 | NUR ---
Progress note Date of service: 07/19/2020 SUBJECTIVE Events noted. The patient is awake, alert, mild swelling of the legs. No new complaints. Denies chest pain, no shortness of breath, no vomiting, no nausea no vomiting no diarrhea no fever no chills. ROS General: Denies fever chills Cardia vascular: No CP, no edema Respiratory: No SOB, no cough, no hemoptysis GI: Denies nausea, no vomiting, no diarrhea no hematemesis no Genitourinary: No dysuria, hematuria, no incontinence. No Tan catheter. Neuro: No focal weakness. Alert oriented x3 Psychiatrist: No anxiety Objective: Physical exam: Patient was in no distress. Elderly patient with morbid obesity. BP 114/49, respirations 20, pulse 81, pulse ox 97% on nasal cannula 2 L. HEENT: No gross abnormalities noted. Neck: Supple no JVD Lungs: Decreased breathing sounds. Heart: Regular rate and rhythm no murmurs no gallops Abdomen: Soft nontender, no organomegaly, bowel sounds present. Extremities: No cyanosis, clubbing or edema Neuro: No Patient alert oriented 3 Musculoskeletal: Lymphedema of the lower extremities. Psych: Normal mood No laboratory data to review. Medications Humalog 4 units SQ, 20 units SQ, Lantus 40 units SQ, K-Dur 10 mEq p.o., chlorothiazide sodium to 50 mg IV daily, Plavix 75 mg p.o. daily, control 400 mg p.o. 3 times daily, Prinivil 40 mg p.o. daily, isosorbide 30 mg p.o. daily, amlodipine 5 mg twice daily, atorvastatin 40 mg p.o. at bedtime, Tylenol 650 mg p.o. every 4 hours as needed, zolpidem 5 mg p.o. at bedtime, PRN, dextrose 50%, 50 mL PRN IV, morphine sulfate 4 mg every 4 hours as needed IV, ondansetron 4 mg IV every 4 hours as needed. Assessment 75-year-old man with past medical history of hypertension, diabetes, history of [place], coronary artery disease status post CABG and stent. Presents to hospital complaining of shortness of breath, lightheadedness, leg swelling, left calf ulcer, denies syncope, fever, chest pain, abdominal pain or diarrhea. CT angiography positive for pulmonary edema. Creatinine 1.38, sodium 142, potassium 3.1, WBC 7.8, hematocrit 32, albumin 3.3. Pulmonary edema, acute Acute on chronic diastolic heart failure Moderate hypoxemia Leg ulcer, leg edema Chronic lymphedema Chronic kidney disease, suspected Presyncope Coronary artery disease, status post coronary artery bypass graft Status post myocardial infarction and stent Hypertension Diabetes Obesity Sleep apnea Weakness/debility 07/17/2020 Stable vital signs. Echocardiogram: Normal left ventricular ejection fraction, no significant valvular abnormalities. Troponins normal. Cleared by cardiology. The patient continues with significant edema. Albumin 3.5. Patient is allergic to Lasix. We will continue with loop diuretics. Start Diuril IV, as per nephrology. We will obtain 24-hour protein/creatinine and creatinine clearance. Continue with wound care, CPAP at night, continue current medications. 07/18/2020 Stable vital signs. We will continue present care with diuretics, ethacrynic acid IV, replace potassium, monitor renal function and electrolytes, follow-up with renal ultrasound. 07/19/2020 Stable vital signs We will follow-up with 24-hour urine. We will continue with ethacrynic acid p.o., discontinue Diuril and start hydrochlorothiazide. Weaning off oxygen. Continue wound care. Plan Continue home medications BP control Glycemic control Pain control Electrolyte control DVT/GI prophylaxis Diuretics Antibiotics Anxiolytics Decadron ID consult noted Cardiology consult noted Nephrology consult noted
--- NOTE | 2020-07-20 | NUR ---
Patient with no c/o at this time. No pain or discomfort at this time. Received insulin coverage for blood glucose of 240 to left upper arm x2 sticks. Patient tolerated well. Snack given immediately after. Continue monitor.
--- NOTE | 2020-07-20 02:33 | Progress Note ---
DATE: 07/1620 Please see previous completed note pertaining 07/19/20 MD SYLVIA Terrell/SHERMAN /[id number]
--- NOTE | 2020-07-20 03:36 | NUR ---
Patient resting quitly at this time. Continue monitor.
[2020-07-20 04:00] VITALS: BP 137/65
[2020-07-20 06:43] LABS: ANION GAP 15.4 mmol/L (8-16); CALCIUM 9.3 mg/dL (8.4-10.2); CREATININE, SERUM 1.35 mg/dL (0.72-1.25); POTASSIUM 3.4 mmol/L (3.5-5.1)
[2020-07-20] MEDS: INSULIN LISPRO 100 UNIT/1 ML 3ML VIAL SQ SCH ×2 (07:30→08:00)
[2020-07-20 08:07] VITALS: BP 146/60
[2020-07-20] MEDS ORDERED: HYDROCHLOROTHIAZIDE 25 MG TAB PO SCH (09:00)
[2020-07-20 09:26] VITALS: BP 146/60
[2020-07-20] MEDS: ISOSORBIDE MONONITRATE 30 MG TAB CR PO SCH (10:06)
[2020-07-20] MEDS: POTASSIUM CHLORIDE 10MEQ EA PO SCH (10:07)
[2020-07-20] MEDS: LISINOPRIL 20 MG TAB PO SCH (10:07)
[2020-07-20] MEDS: AMLODIPINE BESYLATE 5 MG TAB PO SCH (10:07)
[2020-07-20] MEDS: CLOPIDOGREL BISULFATE 75 MG TAB PO SCH (10:07)
[2020-07-20] MEDS: PENTOXIFYLLINE 400 MG TAB CR PO SCH (10:08)
[2020-07-20] MEDS: INSULIN GLARGINE 100 UNITS/ML VIAL SQ SCH (10:56)
[2020-07-20] MEDS ORDERED: ESIDRIX25 MG PO (10:57)
[2020-07-20] MEDS ORDERED: ETHACRYNIC ACID25 MG PO (10:57)
[2020-07-20 11:55] VITALS: BP 146/83
[2020-07-20] MEDS ORDERED: ONDANSETRON HCL 4 MG ORAL DISINTEGRATING TAB PO PRN (12:15)
--- NOTE | 2020-07-20 13:51 | Progress Note ---
DATE: 07/20/2020 Cardiology Progress Note SUBJECTIVE: The patient denies chest pain. He reports his dyspnea on exertion is improving. OBJECTIVE: VITAL SIGNS: Temperature 97.4 degrees, pulse 80, respiratory rate 20, blood pressure 156/83, and oxygen saturation 99% on 2 L nasal cannula. GENERAL: An elderly man, in no acute distress, awake and alert. LUNGS: Clear to auscultation bilaterally. No wheezes or crackles. CARDIAC: Normal rate, regular rhythm. No murmur. Normal S1, S2. ABDOMEN: Soft, nontender. EXTREMITIES: Gross edema is present. CARDIAC MEDICATIONS: 1. Plavix 75 mg p.o. daily. 2. Lisinopril 40 mg p.o. daily. 3. Amlodipine 5 mg p.o. b.i.d. 4. Hydrochlorothiazide 25 mg p.o. daily. 5. Isosorbide mononitrate 30 mg p.o. daily. 6. Ethacrynic acid 50 mg p.o. q.12 hours. LABORATORY DATA: Sodium 140, potassium 3.4, chloride 102, CO2 of 26, BUN 21, and creatinine 1.35. TELEMETRY: Telemetry was personally reviewed and interpreted revealing normal sinus rhythm. IMPRESSION: 1. Near-syncope. 2. Coronary artery disease, status post coronary artery bypass graft and recent percutaneous coronary intervention. 3. Hypertension. 4. Hyperlipidemia. 5. Morbid obesity. 6. Chronic lymphedema. 7. Chronic kidney disease. RECOMMENDATIONS: The patient's echocardiogram showed normal LVF without significant valvular abnormalities. He ruled out for myocardial portion with serial cardiac biomarkers. Recent cardiac catheterization did not reveal significant stenosis remaining to revascularize. No further cardiac evaluation is indicated at this time. No arrhythmias have been seen on telemetry. Diuresis per Nephrology given chronic kidney disease and Lasix allergy. Monitor creatinine. Replete electrolytes. Thank you for this consult. We will continue to follow. Wendy Banda MD [facility] /[id number]
--- NOTE | 2020-07-20 14:12 | NUR ---
pt discharged home with prescriptions , pt was educated, on his medications and was asked to follow up with pcp and and renal dr. Iv site removed, no swelling no redness to site.
== END 2020-07-20 14:10 | disposition home or self-care (01) | DRG 291 ==
LOC: ER 15:46 → ERHOLD 18:14 → MED/SURG 21:16 → OBSVTOIN 07-17 13:59 → MED/SURG3 07-17 16:38
PROVIDERS: ADMIT Internal Medicine; ATTEND Internal Medicine
DX: I13.0 Hypertensive heart and chronic kidney disease with heart failure and stage 1 through stage 4 chronic kidney disease, or unspecified chronic kidney disease (principal); I50.33 Acute on chronic diastolic (congestive) heart failure; N17.9 Acute kidney failure, unspecified; Z68.42 Body mass index [BMI] 45.0-49.9, adult; E87.6 Hypokalemia; I25.10 Atherosclerotic heart disease of native coronary artery without angina pectoris; Z95.1 Presence of aortocoronary bypass graft; Z95.5 Presence of coronary angioplasty implant and graft; I25.2 Old myocardial infarction; G47.30 Sleep apnea, unspecified; E11.22 Type 2 diabetes mellitus with diabetic chronic kidney disease; R09.02 Hypoxemia; I89.0 Lymphedema, not elsewhere classified; E66.01 Morbid (severe) obesity due to excess calories; N18.9 Chronic kidney disease, unspecified; Z11.59 Encounter for screening for other viral diseases
CPT/HCPCS: 36415; 70450; 71045; 71260; 76770; 80048; 80053; 80307; 81001; 81050; 82550; 82553; 82575; 82948; 83735; 83880; 84100; 84156; 84484; 85025; 85379; 85610; 85730; 93005; 93306; 96372; 99251; 99284; G0378; J1815; J2270; J2405; Q9967; U0002

== ENCOUNTER 2020-10-21 11:06 | Inpatient (IN) | payer MEDICARE ==
[~2020-10-21] VITALS: Ht 177.8 cm; Wt 151.7 kg
[~2020-10-21 11:06] MED LIST changes: +ESIDRIX25 MG PO; +ETHACRYNIC ACID25 MG PO; +LANTUS 3ML100 UNITS/ SC
[2020-10-21 11:35] LABS: BASOPHILS % 0.3 % (0.0-1.0); EOSINOPHILS # (AUTO) 0.1 (0.0-0.4); EOSINOPHILS % 1.7 % (0.0-6.0); HEMATOCRIT 38.3 % (38.2-49.6); HEMOGLOBIN 12.8 g/dL (14.0-18.0); LYMPHOCYTES # (AUTO) 2.6 (1.0-3.2); MEAN CORPUSCULAR HEMOGLOBIN 30.6 pg (28-32); MEAN CORPUSCULAR HGB CONC 33.4 g/dL (31-35); MEAN CORPUSCULAR VOLUME 91.6 fL (81-99); MONOCYTES # (AUTO) 0.6 (0.2-0.8); MONOCYTES % 7.7 % (4.4-11.3); NEUTROPHILS # (AUTO) 3.9 (2.1-6.9); NEUTROPHILS % 54.2 % (38.7-80.0); PLATELET COUNT 312 x10e3/uL (140-360); RED BLOOD COUNT 4.18 x10e6/uL (4.3-5.7); RED CELL DISTRIBUTION WIDTH 13.7 % (11.7-14.4)
[2020-10-21 11:44] LABS: INR 0.9; PROTHROMBIN TIME 12.6 seconds (11.9-14.5)
[2020-10-21 11:45] LABS: PARTIAL THROMBOPLASTIN TIME 22.3 seconds (23.8-35.5)
[2020-10-21 12:03] LABS: ALBUMIN 3.4 g/dL (3.5-5.0); ANION GAP 15.9 mmol/L (8-16); CALCIUM 8.9 mg/dL (8.4-10.2); CREATININE, SERUM 1.51 mg/dL (0.72-1.25)
[2020-10-21 12:05] LABS: POTASSIUM 2.9 mmol/L (3.5-5.1)
[2020-10-21] MEDS ORDERED: POTASSIUM CHLORIDE 20 MEQ TAB CR PO STA ×2 (12:06→22:42)
[2020-10-21 12:14] LABS: CREATINE KINASE MB 3.2 ng/mL (0-5.0)
[2020-10-21] MEDS ORDERED: LEVETIRACETAM 500MG/5ML VIAL 1,000 MG in SODIUM CHLORIDE 0.9% 100 ML 100 ML IV ONE (14:00)
[2020-10-21 18:55] VITALS: BP 160/77
[2020-10-21 19:00] VITALS: BP 160/77
[2020-10-21] MEDS ORDERED: VALPROATE SOD INJ 1,000 MG in SODIUM CHLORIDE 0.9% 100 ML 100 ML INJ SCH (20:00)
[2020-10-21] MEDS: DEPAKOTE DELAYED-RELEASE TAB 500 MG PO SCH (20:51)
[2020-10-21 21:05] LABS: AMPHETAMINES SCREEN,URINE NEGATIVE (NEGATIVE); BENZODIAZEPINES SCREEN,URINE NEGATIVE (NEGATIVE); PHENCYCLIDINE SCREEN,URINE NEGATIVE (NEGATIVE)
[2020-10-21 21:06] LABS: CLARITY,URINE HAZY (CLEAR); COLOR,URINE YELLOW (YELLOW); KETONES,URINE NEGATIVE (NEGATIVE); LEUKOCYTE ESTERASE ,URINE NEGATIVE (NEGATIVE); NITRITE,URINE NEGATIVE (NEGATIVE); PROTEIN,URINE DIPSTICK NEGATIVE (NEGATIVE); URINE UROBILINOGEN 0.2 mg/dL (0.2 - 1)
[2020-10-21 21:10] LABS: BACTERIA,URINE FEW /HPF; EPITHELIAL CELLS,URINE FEW /LPF; RBC,URINE 0-5 /HPF (0-5); WBC,URINE (MAN) 0-5 /HPF (0-5)
[2020-10-21] MEDS ORDERED: GADOBENATE DIMEGLUMINE 1 ML IV ONE (21:18)
[2020-10-21 21:20] LABS: CREATINE KINASE MB 3.7 ng/mL (0-5.0)
[2020-10-21] MEDS ORDERED: INSULIN GLARGINE 100 UNITS/ML VIAL SQ SCH (23:00)
[2020-10-22] VITALS (7 sets, daily range): BP systolic 150–167; BP diastolic 70–76
[2020-10-22 06:08] LABS: BASOPHILS % 0.4 % (0.0-1.0); EOSINOPHILS # (AUTO) 0.1 (0.0-0.4); EOSINOPHILS % 1.2 % (0.0-6.0); HEMATOCRIT 37.9 % (38.2-49.6); HEMOGLOBIN 12.7 g/dL (14.0-18.0); MEAN CORPUSCULAR HEMOGLOBIN 30.9 pg (28-32); MEAN CORPUSCULAR HGB CONC 33.5 g/dL (31-35); MEAN CORPUSCULAR VOLUME 92.2 fL (81-99); MONOCYTES # (AUTO) 0.6 (0.2-0.8); MONOCYTES % 7.8 % (4.4-11.3); NEUTROPHILS % 51.3 % (38.7-80.0); PLATELET COUNT 300 x10e3/uL (140-360); RED BLOOD COUNT 4.11 x10e6/uL (4.3-5.7)
[2020-10-22 06:30] LABS: ALBUMIN/GLOBULIN RATIO 0.9 (0.8-2.0); ANION GAP 13.5 mmol/L (8-16); CALCIUM 8.6 mg/dL (8.4-10.2); CHOL/HDL RATIO 4.9 (3.9-4.7); CREATININE, SERUM 1.35 mg/dL (0.72-1.25); POTASSIUM 3.5 mmol/L (3.5-5.1)
[2020-10-22 06:57] LABS: CREATINE KINASE MB 3.2 ng/mL (0-5.0)
[2020-10-22] MEDS: INSULIN ASPART 70/30 100 UNITS/ML VIAL SC SCH ×3 (08:00→17:00)
[2020-10-22] MEDS ORDERED: ISOSORBIDE MONONITRATE 30 MG TAB CR PO SCH (09:00)
[2020-10-22] MEDS ORDERED: CLOPIDOGREL BISULFATE 75 MG TAB PO SCH (09:00)
[2020-10-22] MEDS ORDERED: ASPIRIN 81 MG CHEW TAB PO SCH (09:00)
[2020-10-22] MEDS: DEPAKOTE DELAYED-RELEASE TAB 500 MG PO SCH ×2 (09:07→16:52)
[2020-10-22] MEDS: AMLODIPINE BESYLATE 5 MG TAB PO SCH ×2 (09:08→16:52)
[2020-10-22] MEDS: PENTOXIFYLLINE 400 MG TAB CR PO SCH ×2 (09:08→16:52)
[2020-10-22] MEDS: POTASSIUM CHLORIDE 10MEQ EA PO SCH ×2 (09:08→16:58)
[2020-10-22] MEDS ORDERED: CALCIUM CARBONATE 500 MG CHEWABLE TABS PO PRN (11:15)
[2020-10-22 15:15] LABS: CREATINE KINASE MB 3.2 ng/mL (0-5.0)
[2020-10-22] MEDS ORDERED: K DUR10 MEQ PO (19:10)
[2020-10-22] MEDS ORDERED: ATORVASTATIN 20 MG TAB PO SCH (21:00)
== END 2020-10-22 19:50 | disposition home or self-care (01) | DRG 101 ==
LOC: ER 11:37 → ERHOLD 13:47 → MED/SURG2 17:43
PROVIDERS: ADMIT Internal Medicine; ATTEND Internal Medicine
DX: G40.409 Other generalized epilepsy and epileptic syndromes, not intractable, without status epilepticus (principal); I50.22 Chronic systolic (congestive) heart failure; G43.809 Other migraine, not intractable, without status migrainosus; I25.10 Atherosclerotic heart disease of native coronary artery without angina pectoris; G47.33 Obstructive sleep apnea (adult) (pediatric); I10 Essential (primary) hypertension; I11.0 Hypertensive heart disease with heart failure; Z95.1 Presence of aortocoronary bypass graft; Z20.828 Contact with and (suspected) exposure to other viral communicable diseases; E87.6 Hypokalemia; Z95.818 Presence of other cardiac implants and grafts
CPT/HCPCS: 36415; 70450; 70553; 71045; 80053; 80061; 80307; 81001; 82550; 82553; 82948; 83735; 83880; 84484; 85025; 85610; 85730; 93005; 99285; J1815; U0002